=== PATIENT | female | born 1960 | race Caucasian/White ===

== ENCOUNTER 2020-01-13 09:53 | Emergency (ER) | payer OTHER, SELFPAY ==
[2020-01-13 09:55] VITALS: BP 138/85; PULSE 75; RESP 18; TEMP 37; O2SAT 98; BMI 27.4
--- NOTE | 2020-01-13 10:12 | CT_ITS ---
STUDY: CT ABDOMEN AND PELVIS WITHOUT CONTRAST REASON FOR EXAM: Female, 59 years old. LEFT FLANK PAIN WITH HISTORY OF KIDNEY STONES. PRIOR TUBAL LIGATION AND LITHOTRIPSY. RADIATION DOSAGE (If Supplied By Facility): CTDIvol = ( 9.57 ) mGy, DLP = ( 452.55 ) mGycm TECHNIQUE: Transaxial images were obtained from the dome of the diaphragm to the symphysis pubis without oral contrast, and without intravenous contrast. Sagittal and coronal images were reconstructed. Individualized dose optimization techniques were used for this CT. COMPARISON: None. FINDINGS: The visualized lung bases are unremarkable. The visualized portions of the heart are within normal limits. Normal liver. Normal gallbladder and extrahepatic biliary system. Normal spleen. Normal pancreas. Enlargement of the left adrenal gland although no focal lesion is seen suggestive of hyperplasia. Nonobstructive 3 mm calculus in the upper pole calyx of the right kidney. Mild degree of left hydronephrosis and left hydroureter with left perinephric and periureteric stranding. There is a 7.8 mm nonobstructive cochlea is in the upper pole calyx of the left kidney as well as a 3 mm calculus in the midportion and lower pole calyx of the left kidney. There is a 4.4 mm calculus in the proximal portion of the left ureter. Normal visualized stomach. Normal small intestine. There are multiple colonic diverticula consistent with diverticulosis. The appendix is visualized and appears normal. There is diffuse atherosclerotic calcification of the abdominal aorta, without a demonstrated aneurysm. Normal inferior vena cava. Normal retroperitoneum. Normal urinary bladder. Normal abdominal wall. Normal osseous structures. CT/Abdomen/Pelvis without Cont IMPRESSION: Left hydronephrosis and hydroureter due to a 4.4 mm calculus in the proximal portion of the left ureter with left perinephric stranding and periureteric stranding. Bilateral nonobstructive intrarenal calculi. Scattered sigmoid diverticula. Electronically Signed: Zachery Cohen, at 11:41 EST , Service support ,
--- NOTE | 2020-01-13 10:14 | ED.DCSUM_ITS ---
History of Present Illness Chief Complaint: Flank Pain Informant: Patient Onset: Today Current Severity: Moderate Maximum Severity: Severe Narrative: Patient presents with left flank pain that started 3 hours ago suddenly, the pain is intense however it does wax and wane slightly. She has no abdominal pain she is nauseated. Pain is sharp and stabbing. She has no chest pain or shortness of breath fever or chills. She has no urinary symptoms she has no history of kidney stones. She has no midline back pain. Past Medical History - Allergies and Home Meds Allergies/Adverse Reactions: Allergies codeine Allergy (Verified 01/13/20 09:57) Itching Primary Care Physician: [facility] Doctor,Out of [NON-STAFF] - Past Medical History: - - Depression Smoking Status: Current every day smoker Review of Systems All systems negative except as indicated General: Denies: Fever Cardiovascular: Denies: Chest pain Respiratory: Denies: Dyspnea, Cough Gastrointestinal: Reports: Nausea. Denies: Abdominal pain, Diarrhea, Constipation Genitourinary: Denies: Dysuria, Hematuria Musculoskeletal: Reports: Back pain Skin: Denies: Rash Neurological: Denies: Weakness Psych: Reports: Depression Endocrine: Denies: Polyuria Hematologic: Reports: - Allergy: Reports: - Physical Exam Vital Signs/Narrative: Vital Signs Temp Pulse Resp BP Pulse Ox 01/13/20 09:55 98.6 F 75 18 138/85 H 98 General: Acute Distress, - - She does appear in some distress Head: Normocephalic Neck: Supple Cardiovascular: Regular rate, Regular rhythm Respiratory: No distress, CTA bilaterally Abdomen: Soft, - - There is no abdominal tenderness. There is left-sided flank pain which is ill reproduced. Back: CVA tenderness. Negative for: Spinal tenderness Extremities: Nontender, No edema Skin: Normal color Neurological: Alert, Normal Strength. Negative for: Weakness Psychological: - - Anxious Diagnostic/Tx/Re-eval - Medical Decision Making Patient is found to have a 4.4 mm obstructing stone. There is no evidence of infection. Her pain is controlled. She wants to be discharged. I will follow- up with urology and give her symptomatic treatment. ED Disposition - Plan for ED Patient: Disposition: Home or Assisted Living Instructions: KIDNEY STONE w/ Colic Prescriptions: Tamsulosin HCl [Flomax] 0.4 mg PO DAILY #5 cap.er.24h Prescription Printed Oxycodone HCl/Acetaminophen [Percocet 5/325] 1 tab PO Q6H PRN PRN 5 Days #20 tab PRN Reason: Pain Score 4-5/10 Prescription Printed Ondansetron [Zofran Odt] 4 mg PO Q8H PRN PRN #10 tab PRN Reason: Nausea Prescription Printed Referrals: Shant Razo MD [STAFF PHYSICIAN] -
[2020-01-13] MEDS: Ondansetron 4 MG/2 ML Vial IV (10:17)
[2020-01-13] MEDS: 0.9% Normal Saline 1,000 ML 1000 ML IV (10:17)
[2020-01-13] MEDS: Ketorolac 30 MG/ML Syringe 15 MG IV (10:18)
[2020-01-13] MEDS: Morphine 4 MG/ML Syringe IV (10:19)
[2020-01-13 10:31] LABS: Absolute Lymphocyte Count 2.85 X10^3/uL (0.83-4.51); Absolute Neutrophil Count 10.6 X10^3/uL (2.0-7.7); Basophil# 0.07 X10^3/uL; Basophil% 0.5 % (0-1); Eosinophil# 0.05 X10^3/uL; Eosinophils% 0.4 % (0-5); Hematocrit 42.4 % (37-47); Hemoglobin 13.9 g/dL (12.0-15.0); Lymphocyte # 2.85 X10^3/ul (4.0); Lymphocyte % 20.1 % (19-41); Mean Corp Hgb Conc 32.8 g/dL (32-36); Mean Corpuscular Hgb 30.9 pg (27.0-32.0); Mean Corpuscular Volume 94.2 fL (81-99); Mean Platelet Vol. 9.8 fl (6.2-12.0); Monocyte# 0.49 X10^3/uL; Monocyte% 3.5 % (0-10); NRBC Flagged by Analyzer 0 % (0-5); Neutrophil # 10.64 X10^3/uL (2.7-7.7); Neutrophil % 75.1 % (47-70); Platelet Count 335 K/mm3 (150-450); RBC Distribution Width CV 13.8 % (11.6-14.6); RBC Distribution Width SD 47.5 fl (35.1-43.9); White Blood Count 14.2 K/mm3 (4.4-11.0)
[2020-01-13 10:32] LABS: Color, Urine Yellow (Yellow); Glucose, Dipstick Normal (Normal); Ketone-Dipstick 5 mg/dl (Negative); Leukocyte Esterase-Dipstick 100 /ul (Negative); Nitrite-Dipstick Negative (Negative); Occult Blood-Urine 250 /ul (Negative); Protein-Dipstick 100 mg/dl (Negative); Urine Bilirubin Dipstick Negative (Negative); Urine Clarity Sl. Cloudy (Clear); Urine Urobilinogen Normal (Normal)
[2020-01-13 10:45] LABS: Bacteria 1+ /hpf (None Seen); Mucous, Urine 1+ /hpf (<or=2+); Red Blood Cells-Urine 10-25 SEEN /hpf (0-5); Squamous Epithelial Cells - UA 0-5 SEEN /hpf (5-10); White Blood Cells 0-5 SEEN /hpf (0-5)
[2020-01-13 10:46] LABS: AST(SGOT) 17 U/L (15-37); Alanine Aminotransfer ALT/SGPT 25 U/L (13-56); Albumin, Serum 3.9 g/dL (3.2-5.0); Alkaline Phosphatase 91 U/L (45-117); Anion Gap 5 (5-15); BUN 15 mg/dL (7-18); BUN/Creat Ratio 12.9 RATIO (10-20); Calcium,Total 9.3 mg/dL (8.5-10.1); Chloride 107 mmol/L (98-107); Creatinine, Serum 1.16 mg/dL (0.55-1.02); EST Glomerular Filtration Rate 50 mL/min (>60); Est Glom Filt Rate - Afr Amer 61 mL/min (>60); Estimated Creatinine Clearance 42.13 ml/min; Globulin 3.8 g/dL (2.2-4.2); Glucose 134 mg/dL (74-106); Protein, Total 7.7 g/dL (6.4-8.2); Sodium Level 139 mmol/L (136-145)
[2020-01-13] MEDS: oxyCODONE 5 MG Tablet 10 MG PO (12:49)
[2020-01-13 12:52] VITALS: BP 125/71; PULSE 81; RESP 17; O2SAT 95
== END 2020-01-13 12:54 | disposition home or self-care (01) ==
PROVIDERS: Emergency Provider Emergency Medicine; PCP Nurse Practitioner Family
DX: N13.2 Hydronephrosis with renal and ureteral calculous obstruction (principal); F17.200 Nicotine dependence, unspecified, uncomplicated
CPT/HCPCS: 74176; 80053; 81001; 85025; 96361; 96374; 96375; 99284; J7030; A4216; J2405

== ENCOUNTER → 2024-10-27 | Outpatient (CLI) | payer MEDICARE, SELFPAY ==
--- NOTE | 2024-10-27 09:54 | BI_ITS ---
MAMMOGRAPHY - BILATERAL SCREENING REASON FOR EXAM: Female, 64 years old. Routine annual screening examination. PERTINENT HISTORY: Non-contributory. TECHNIQUE: Digital bilateral breast ana (3D mammographic acquisition) in the CC and MLO projections. 2-D mediolateral oblique (MLO) and craniocaudad (CC) views of both breasts were obtained. CAD: Full Field Digital Mammography with Computer Added Detection was performed. COMPARISON: None. Baseline examination. FINDINGS: Breast Composition: The breasts are heterogeneously dense, which may obscure small masses. There are no dominant masses or suspicious calcifications. Asymmetry of breast tissue with more breast tissue is seen in the right breast as compared to the left side. Small bilateral axillary lymph nodes. No other significant abnormalities are identified. BI/SCRN MAMM (CAD)W/ANA BILAT IMPRESSION: Negative screening mammogram. Yearly followup mammogram recommended. (A) ASSESSMENT CATEGORY: BIRADS Category 2: Benign. A letter regarding these results will be sent to the patient by the facility within 30 days. Approximately 10% of breast cancers are not detected by mammography. A normal mammogram should not delay biopsy of a clinically suspicious abnormality. [id number] Electronically Signed: Zachery oChen MD at 11:07 EST ,
--- NOTE | 2024-10-27 09:56 | BD_ITS ---
STUDY: DUAL ENERGY X-RAY ABSORPTIOMETRY / DXA REASON FOR EXAM: Female, 64 years old. M810 TECHNIQUE: Bone Mineral Density (BMD) measurements of lumbar spine and bilateral hips were obtained. COMPARISON: None. FINDINGS: Lumbar Spine (L1-L4): g/cm2 (0.798) / T-score (-2.3) / Z-score (-0.4) Findings are suggestive of osteopenia with a high fracture risk. Left Femur Total: g/cm2 (0.734) / T-score (-1.7) / Z-score (-0.4) Left Femoral Neck: g/cm2 (0.557) / T-score (-2.6) / Z-score (-1.1) Right Femur Total: g/cm2 (0.722) / T-score (-1.8) / Z-score (-0.5) Right Femoral Neck: g/cm2 (0.561) / T-score (-2.6) / Z-score (-1.0) BD/Dexa Bone Density Study IMPRESSION: The patient is considered osteoporotic as outlined below according to World Lawrence Organization (WHO) criteria with a high fracture risk. Reference Information: The T-score is the number of standard deviations above or below the standard which is normal for young adults at their peak bone mineral density. The World Health Organization (WHO) interprets the T-scores as follows: Above -1 Normal bone density Between -1 and -2.5 Osteopenia Equal to / or below -2.5 Osteoporosis As a practical clinical guideline, osteopenia may be graded as follows: Mild -1 through -1.5 Moderate -1.6 through -2.0 Severe -2.1 through -2.4 The Z-score is the number of standard deviations above or below age-matched controls. A Z-score of less than -1.5 would be considered abnormal. References: 1. NIH Osteoporosis and Related Bone Diseases www osteo.org 2. International Society for Clinical Densitometry www iscd.org 3. National Osteoporosis Foundation www nof.org Electronically Signed: Zachery Cohen MD at 14:58 EST ,
== END | disposition home or self-care (01) ==
PROVIDERS: PCP Nurse Practitioner Family; Referring Provider Nurse Practitioner Family; Visit Provider Nurse Practitioner Family
DX: Z12.31 Encounter for screening mammogram for malignant neoplasm of breast (principal); M81.0 Age-related osteoporosis without current pathological fracture
CPT/HCPCS: 77063; 77067; 77080

== ENCOUNTER → 2025-02-14 | Outpatient (CLI) | payer MEDICARE, SELFPAY ==
--- NOTE | 2025-02-14 08:49 | CT_ITS ---
PROCEDURE: 02/14/2025 REASON FOR EXAM: SCREENING FOR LUNG CANCER TECHNIQUE: Low Dose CT Lung screening without contrast. Coronal and Sagittal reconstruction series were provided. One or more dose reduction techniques were used (e.g., Automated exposure control, adjustment of the mA and/or kV according to patient size, use of iterative reconstruction technique). REFERENCE LINK: [employer] Lung-RADS RADIATION DOSE SUMMARY: CTDlvol: 2.01 mGy DLP: 62.68 mGycm COMPARISON: None. FINDINGS: PULMONARY NODULES: (Only nodules >3mm are reported) Nodules described below are on series unless otherwise specified. Pulmonary Nodules: No suspicious pulmonary nodules. Hardware:None. Lymph Nodes:Shotty nonspecific lymph nodes seen within the mediastinum the largest measures up to 1.3 cm near the left hilum (image 80/224) Heart and Vasculature:Atheromatous calcification seen within the thoracic aorta. Coronary Artery Calcifications: None to minimal. Lungs and Airways: Subpleural bleb seen within the right upper lobe (image 56/224). Streaky changes/scarring seen within the right middle lobe (image 159/224). There are dependent changes at the lung bases. There are patchy subpleural infiltrates within the left upper lobe (image 82/224). Pleura:No pleural effusion. Upper Abdomen:Left hydronephrosis partially visualized. There several left- sided renal stones. Contrast is seen within the visualized colonic loops. Please see CT abdomen. Bones:Degenerative changes within the spine. CT/Low Dose CT Lung Screening IMPRESSION: Subpleural ground-glass changes are nonspecific. Lung-RADS Category: 2 Other Significant Findings: Left hydronephrosis, renal stones. Please see CT a bdomen/pelvis, which is separately dictated. Reading Location: [id number]
--- NOTE | 2025-02-14 09:12 | CT_ITS ---
PROCEDURE: ABDOMEN/PELVIS WITH CONTRAST 02/14/2025 REASON FOR EXAM: HIGH SERUM VITAMIN, RENAL CARCINOMA SUSPECTED TECHNIQUE: Contiguous axial scans of 3.75 mm slice thicknesses. Sagittal and coronal reconstruction images were obtained. One or more dose reduction techniques were used (e.g., automated exposure control, adjustment of mA and/or kv according to patient size, use of iterative reconstruction technique). PATIENT PREPARATION: Per protocol ORAL CONTRAST TYPE: Given CONTRAST: 300 Isovue-300 VOLUME: 93 mL RADIATION DOSE SUMMARY: CTDlvol: 25.89 mGy DLP: 626.29 mGycm COMPARISON: No relevant prior. FINDINGS: Lung bases: Unremarkable. Liver: Normal in size and attenuation. No masses are demonstrated. Gallbladder: Unremarkable. Spleen: Unremarkable. Pancreas: No masses. Normal parenchymal attenuation. No ductal dilatation. Adrenals: Left adrenal gland thickening. Small left adrenal gland nodule measuring 10 mm, axial image 31. Kidneys: Bilateral nonobstructing nephrolithiasis. Multiple calcifications in the upper pole of the left kidney, largest measuring a approximately 6 mm. Multiple calcifications scattered throughout the left kidney, too numerous to count. Multiple calcifications are noted in the left upper pole calyx, largest measuring approximately 6 mm. Marked left hydroureteronephrosis down to the ureterovesical junction. Several calcifications are noted obstructing the distal left ureter on axial image number 92, coronal image 68 measuring approximately 5 mm. Multiple cysts in both kidneys, largest on the right measuring 9 mm, largest on the left measuring 1.8 x 1.4 cm. Bladder: No masses or calcifications. Reproductive Organs: Unremarkable. Bowel: Unremarkable. Appendix: Unremarkable. Lymph nodes: No suspicious adenopathy. Vasculature: Scattered atherosclerotic calcified plaques in the aorta and iliac arteries. Mild eccentric thrombus in the aorta and iliac arteries. Peritoneum / Retroperitoneum: Unremarkable. Abdominal wall: Unremarkable. Bones: Mild multilevel spondylosis. Mild degenerative disc disease at T10 through T12. CT/Abdomen/Pelvis WITH Contrast IMPRESSION: 1. Findings of an obstructive uropathy on the left with obstructing calculi at the left ureterovesical junction and marked proximal hydroureteronephrosis. 2. Bilateral nonobstructing nephrolithiasis. 3. Bilateral renal cysts. 4. No definite signs of renal cell carcinoma. 5. Left adrenal gland thickening in a small nodule most likely adrenal adenoma . 6. Other nonacute findings detailed above. Reading Location: [place] [id number]
== END | disposition home or self-care (01) ==
PROVIDERS: PCP Nurse Practitioner Family; Referring Provider Nurse Practitioner Family; Visit Provider Nurse Practitioner Family
DX: Z12.2 Encounter for screening for malignant neoplasm of respiratory organs (principal); N18.32 Chronic kidney disease, stage 3b; F17.210 Nicotine dependence, cigarettes, uncomplicated; R79.89 Other specified abnormal findings of blood chemistry
CPT/HCPCS: 71271; 74177; Q9967; A4216

== ENCOUNTER 2025-03-02 07:59 | Day surgery (SDC) | payer MEDICARE, SELFPAY ==
[2025-03-02] VITALS (9 sets, daily range): BP systolic 112–137; BP diastolic 57–103; PULSE 72–78; RESP 16–20; TEMP 36.1–36.8; O2SAT 94–98; BMI 23.0
[2025-03-02] MEDS: Lactated Ringers 1,000 ML 15 ML IV (08:58)
--- NOTE | 2025-03-02 09:07 | PRE.ANES_ITS ---
ASA Classification* ASA Classification ASA Classification: 3 Assessment & Plan Anesthesia* Anesthesia Assessment Anesthesia Assessment: Discussed sedation and/or anesthesia options, risks, benefits, and alternatives with patient/parents/legal guardian/POA. Questions invited. The patient/parents/legal guardian/POA seems to understand and agrees to proceed with anesthesia plan. Reviewed the physical assessment, medical history, allergy history and patient home medications list prior to surgery/procedure/anesthetic and documented any changes. Performed airway and anesthesia risk assessments. Anesthesia Type Anesthesia Type: General History Source History Obtained from:: Patient and Chart Anesthesia Focused Assessment* Temperature: 97.8 F Pulse Rate: 76 Blood Pressure: 135/72 Respiratory Rate: 18 Pulse Ox: 97 Oxygen Delivery Method: Room Air Airway Assessment Mouth opens: >3 cm Mallampati Score: II Teeth Condition: Dentures (Patient has full upper dentures. They are out.) and Missing (Patient is missing her molars on the bottom. Rest are tight.) Neck Range of motion (ROM): Full ROM Focused Labs Anesthesia Preop lab: CBC WBC 14.2 K/mm3 (4.4-11.0) H 01/13/20 10:10 0 RBC 4.50 M/mm3 (4.2-5.4) 01/13/20 10:10 01/13/20 Hgb 13.9 g/dL (12.0-15.0) 01/13/20 10:10 01/13/20 Hct 42.4 % (37-47) 01/13/20 10:10 01/13/20 Plt Count 335 K/mm3 (150-450) 01/13/20 10:10 01/13/20 CHEMISTRY Potassium 4.0 mmol/L (3.5-5.1) 01/13/20 10:10 01/13/20 Sodium 139 mmol/L (136-145) 01/13/20 10:10 01/13/20 BUN 15 mg/dL (7-18) 01/13/20 10:10 01/13/20 Creatinine 1.16 mg/dL (0.55-1.02) H 01/13/20 10:10 Glucose 134 mg/dL (74-106) H 01/13/20 10:10 01/13/20 COAG Pre-Assessment Diagnosis/Proposed Procedure Planned Operative Procedure(s): CYSTO URETEROSCOPY LEFT WITH LASER LITHOTRIPSY STONE BASKET EXTRACTION STENT INSERTION Anesthesia History 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 When Was Last Pacemaker Check QUESTION #4 FULL TEXT: You/Your Family Experience fever (hyperthermia) with Anesthesia Last Oral Intake Last Oral intake: Last Oral Intake NPO since 06:30 03/02/25 08:52 Meds taken in AM with sips of Yes 03/02/25 08:52 water? Meds patient instructed to omeprazole 03/02/25 08:52 take am of surgery Any additional information?: Yes Meds taken in AM with sips of water?: Yes PONV PONV - air table operator: PONV - air table operator Female Yes 02/27/25 13:16 HX of Motion Sickness No 02/27/25 13:16 HX of N/V After Surgery No 02/27/25 13:16 Non-Smoker No 02/27/25 13:16 Duration of Surgery greater Yes 02/27/25 13:16 than 60 minutes Number of Risk Factors 2 02/27/25 13:16 PONV Score Moderate Risk 02/27/25 13:16 Height & Weight Height & Weight: Anesthesia: Height & Weight Height 5 ft 3 in 03/02/25 08:52 Weight: 59 kg 03/02/25 08:52 Body Mass Index (BMI) 23.0 03/02/25 08:52 Respiratory Assessment Respiratory Assessment - air table operator: Respiratory Tract Infection Hx - air table operator Hx Respiratory Tract Infection No 02/27/25 13:16 STOP Sleep Apnea STOP Sleep Apnea - air table operator: STOP Sleep Apnea - air table operator Hx Hypertension No 02/27/25 13:16 Hx Sleep Apnea No 02/27/25 13:16 CPAP BIPAP Do you snore loudly (louder No 02/27/25 13:16 than talking or can be heard Do you often feel tired/ No 02/27/25 13:16 fatigued/ sleepy during daytime? Has anyone observed you stop No 02/27/25 13:16 breathing during sleep? STOP Results Negative 02/27/25 13:16 QUESTION #5 FULL TEXT : Do you snore loudly (louder than talking or can be heard through closed doors)? 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 Specify any problems Hx of Preganancy in last 3 No 02/27/25 13:16 Months Nurse Filling Out Transfusion DSCHRIBER 02/27/25 13:16 & Questions: Date: 02/27/25 02/27/25 13:16 Time: 13:17 02/27/25 13:16 Patient unable to answer at this time (ie. confused, unrespo /Reproduction History /Reproductive History - air table operator: /Reproductive Hx- air table operator Hx Now No 02/27/25 13:16 Gestational Age (in weeks): EDC: Hx Hx Para Hx Section SAB No 02/27/25 13:16 Active Medications Active Medications: Current Medications Generic Name Dose Route Start Last Admin Trade Name Freq PRN Reason Stop Dose Admin Cefazolin Sodium 2 gm/ N/A 20 mls @ 400 mls/hr 03/02/25 10:55 IV 03/02/25 10:57 INTRAOP ONE Lactated Ringer's 1,000 mls @ 15 mls/hr 03/02/25 08:15 03/02/25 08:58 IV 15 mls/hr .Q48H CARINA Administration PFSH Medical History Loss of hearing Wears contact lenses Wears dentures Post-menopausal Depression Anxiety History of steroid therapy Rheumatoid arthritis Bladder disease Easy bruising High cholesterol Migraine headache Degenerative disc disease at L5-S1 level DDD (degenerative disc disease), thoracic DDD (degenerative disc disease), cervical Injury of head and neck TIA (transient ischemic attack) Syncope History of diverticulitis History of IBS Gastric reflux Asthma Leg cramps Smoker Home Medications ?Medication ?Instructions ?Recorded ?Last Taken ?Type buspirone 5 mg tablet 5 mg PO BID 01/13/20 Unknown History ondansetron 4 mg disintegrating 4 mg PO Q8H PRN PRN Na usea #10 tabs 01/13/20 Unknown Rx tablet alendronate 70 mg tablet 70 mg PO QWEEK 02/27/25 Unkn own History aspirin 81 mg tablet,delayed 81 mg PO QHS 02/27/25 History release (Adult Low Dose Aspirin) atorvastatin 10 mg tablet 10 mg PO QHS 02/27/25 Unknow n History bupropion HCl 150 mg tablet,12 hr 150 mg PO BID Unknown History sustained-release fluticasone 100 mcg-salmeterol 50 1 inh inhalation BID PRN PRN ASTHMA 02/27/25 Unknown History mcg/dose blistr powdr for inhalation meloxicam 7.5 mg tablet 7.5 mg PO DAILY PRN ARTHRITI S 02/27/25 Unknown History omeprazole 20 mg capsule,delayed 20 mg PO DAILY PRN HI N GERD 02/27/25 03/02/25 06:30 History release tamsulosin 0.4 mg capsule 0.4 mg PO QHS 02/27/25 Unkno wn History Allergy/AdvReac Type Severity Reaction Status Date / Time codeine Allergy Itching Verified 03/02/25 08:51 Surgical History History of esophagogastroduodenoscopy (EGD) Hx of colonoscopy History of cystoscopy Hx of tubal ligation Social History Smoking Status: Current every day smoker (Patient smoked today.) tobacco type: cigarettes Review of Systems (Anesthesia) ROS Narrative System reviewed and no additional complaints, except as documented.
--- NOTE | 2025-03-02 09:32 | PCM.OPRPT ---
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: No Type of Anesthesia: General RN Documented Start/Stop Times: Operation Date: 03/02/25 09:35 Case Time Into Pre-Op 03/02/25 08:11 Anesthesia Start 03/02/25 09:36 Into Room 03/02/25 09:36 Out of Pre-Op 03/02/25 09:36 Procedure Start 03/02/25 09:49 Procedure End 03/02/25 10:04 Anesthesia End 03/02/25 10:11 Out of Room 03/02/25 10:11 Into Recovery 03/02/25 10:13 Procedure Start Time: 09:49 Procedure Stop Time: 10:04 Select all DRAINS/GRAFTS/IMPLANTS that apply: Drains Drain details: 4.5Fr x 24cm JJ stent Estimated Blood Loss: <5cc Specimen collected: Yes Description of specimen(s) removed: Ureteral stone fragments Description of surgery: Patient is a 64-year-old female with an obstructing left distal ureteral calculus who presents for surgical intervention. Informed consent was obtained. She was taken to the operating room and placed on the operating room table. Anesthesia monitored the head, neck, airway, IV access and vital signs throughout the case. Once anesthesia was appropriate ministered, she was placed into dorsolithotomy position was prepped and draped in usual sterile fashion. The cystoscope was inserted through the urethra under direct visualization into the urinary bladder. The bladder was visualized in its entirety revealing no evidence of mass, erythema, ulceration or foreign body. The left ureteral orifice was identified and intubated with a 0.035 Glidewire seen within the renal pelvis on fluoroscopy. The semirigid ureteroscope was then utilized to gain access to the distal ureter and the stone was almost immediately identified. Using the 200 ?m laser fiber, the stone was broken into multiple small pieces which were basket retrieved using an N-fernie basket. Once all of the fragments were retrieved from the ureter, the safety wire was utilized for placement of a 4.5 Sami by 24 cm JJ stent with good positioning in the renal pelvis as well as the urinary bladder. The bladder was then emptied and the cystoscope was removed. She was awakened and taken to the recovery room in good condition. There were no complications during this procedure. Surgical Findings: left distal stone, larger than measured on CT imaging Complications Complications: No Admit VTE Documentation VTE Present on Admission: Yes VTE Mechan Device Prophylaxis: SCD's Reason prophylaxis not ordered: Treatment Not Indicated
--- NOTE | 2025-03-02 09:33 | EX.PCM.DISCH ---
Discharge Instructions Diet Discharge Diet: No restrictions Activity Discharge Activity: Return to Normal Activity Dressing / Incision Call your doctor if you observe: Fever of 101 or Higher, Inability to urinate and Inability to have a bowel movement Follow Up Care Please Follow Up With: Paige Johansen MD When: The office will call the patient to make follow-up arrangements Test Results: Test results from this visit will be discussed in further detail at your follow-up appointment, if applicable. Discharge Plan Admission Attending Provider: Paige Johansen Primary Care Provider: Nancy Joyce NP Instructions Print Language: Austrian Discharge Orders/Prescriptions Prescriptions: New ondansetron 8 mg tablet,disintegrating 8 mg PO Q8H PRN (Reason: nausea and vomiting) Qty: 10 0RF oxycodone-acetaminophen 5-325 mg tablet 1 tab PO Q8H PRN (Reason: pain) 3 Days Qty: 10 0RF cephalexin 500 mg capsule 500 mg PO Q12 3 Days Qty: 6 0RF phenazopyridine 200 mg tablet 200 mg PO TID PRN (Reason: pain) Qty: 30 3RF Continued buspirone 5 MG tablet 5 mg PO BID ondansetron 4 MG tablet 4 mg PO Q8H PRN PRN (Reason: Nausea) Qty: 10 0RF aspirin [Adult Low Dose Aspirin] 81 mg tablet,delayed release (DR/EC) 81 mg PO QHS tamsulosin 0.4 MG capsule 0.4 mg PO QHS omeprazole 20 mg capsule,delayed release(DR/EC) 20 mg PO DAILY PRN PRN (Reason: GERD) fluticasone propion-salmeterol 100-50 mcg/dose blister with device 1 inh inhalation BID PRN PRN (Reason: ASTHMA) bupropion HCl 150 mg tablet sustained-release 12 hr 150 mg PO BID atorvastatin 10 mg tablet 10 mg PO QHS alendronate 70 mg tablet 70 mg PO QWEEK meloxicam 7.5 mg tablet 7.5 mg PO DAILY PRN (Reason: ARTHRITIS) Referrals / Follow Up: Nancy Joyce NP, EVENT MANAGEMENT CONSULTANT-C [Primary Care Provider] - Disposition Disposition (needs filled in before D/C Order can be placed): Home, Self Care
--- NOTE | 2025-03-02 09:35 | CALC_PTH ---
PATIENT: BRAXTON MARTINEZ LOC: [facility] [place][id number] AGE/SX: 64/F ROOM: RE03/02/[address]: Dr. Paige Johansen MD : 1960 BED: DIS: 03/02/2025 SPEC #: [id number] RECD: 03/02/25 11:09 STATUS: ANA ROSA PURDY #: [id number] MORIAH: 03/02/25 09:[address]: Paige Johansen DEPT: SURGICAL PATHOLOGY RECD BY: Dixon Leija ENTERED: 03/02/25 11:09 SP TYPE: Calculi OTHR DR: Nancy Joyec, GEOVANNA Tissues: A - CALCULI Procedures: Surgery Specimen Level I HEADER OPERATION: Left ureteroscopy, laser litho, stone basket extraction PRE-OP DIAGNOSIS: Renal and ureteric calculus, abdominal pain, stress incontinence TISSUE SUBMITTED: A- Left ureteral calculus GROSS DIAGNOSIS A. Left ureter, calculus, extraction: * Urolithiasis (gross examination only). * Chemical analysis pending (to be reported separately). GROSS DESCRIPTION A. Received fresh in a container labeled with the patient's name, date of , and left ureteral calculus is a 0.6 x 0.5 x 0.4 cm irregular and firm stone. No soft tissue is received; no sections are submitted for microscopic analysis. The specimen is entirely submitted to a urolithiasis lab. [facility] 03/02/2025 CPT:73018
[2025-03-02] MEDS: Cefazolin 2 GM in Syringe IV (09:36)
--- NOTE | 2025-03-02 10:15 | PCM.POST.ANE ---
Anesthesia: Postop Eval I Current Vital Signs Temperature: 97.9 F Pulse Rate: 77 Blood Pressure: 137/103 Respiratory Rate: 20 Pulse Ox: 97 Oxygen Delivery Method: Room Air Assessment Airway patent: Yes Spontaneous unlabored respirations: Yes Mental status: Awake and Calm nausea: Yes Vomiting: No Anesthesia Complication: No Fluid Hydration Crystalloid volume administer (ml): 600 Total IV fluid infused: 600 Progress Note Anesthesia document: Postop Eval 1 completed: Yes
--- NOTE | 2025-03-02 14:24 | POSTOPAN2_ITS ---
Anesthesia Postop Eval I Sum Postop Eval Completion status Anesthesia document: Postop Eval 1 completed: Yes Anesthesia Postop Eval I Summary Anesthesia Postop Eval I Summary: Anesthesia Postop Eval I: Assessment Summary Airway patent Yes 03/02/25 10:16 PERENNIAL HOUSE MANAGER.TNES Spontaneous unlabored Yes 03/02/25 10:16 PERENNIAL HOUSE MANAGER.TNES respirations Mental status Awake,Calm 03/02/25 10:16 PERENNIAL HOUSE MANAGER.TNES nausea Yes 03/02/25 10:16 PERENNIAL HOUSE MANAGER.TNES Vomiting No 03/02/25 10:16 PERENNIAL HOUSE MANAGER.TNES Anesthesia Postop Eval I: Fluid Summary Crystalloid volume administer 600 03/02/25 10:16 PERENNIAL HOUSE MANAGER.TNES (ml) Colloids volume administered ( ml) Blood Product volume administered (ml) Total IV fluid infused 600 03/02/25 10:16 PERENNIAL HOUSE MANAGER.TNES Anesthesia Postop Eval I: Summary Notes Anesthesia Complication No 03/02/25 10:16 PERENNIAL HOUSE MANAGER.TNES Anesthesia Complication Comment: Post-operative progress note Anesthesia: Postop Eval II Evaluation Mental status: Awake and Calm Pain Level: 0 nausea: No Vomiting: No Complications Anesthesia Complication: No
--- NOTE | 2025-03-02 14:24 | PCM.POSTANE2 ---
Anesthesia Postop Eval I Sum Postop Eval Completion status Anesthesia document: Postop Eval 1 completed: Yes Anesthesia Postop Eval I Summary Anesthesia Postop Eval I Summary: Anesthesia Postop Eval I: Assessment Summary Airway patent Yes 03/02/25 10:16 JOINT MACHINE OPERATOR.TNES Spontaneous unlabored Yes 03/02/25 10:16 JOINT MACHINE OPERATOR.TNES respirations Mental status Awake,Calm 03/02/25 10:16 JOINT MACHINE OPERATOR.TNES nausea Yes 03/02/25 10:16 JOINT MACHINE OPERATOR.TNES Vomiting No 03/02/25 10:16 JOINT MACHINE OPERATOR.TNES Anesthesia Postop Eval I: Fluid Summary Crystalloid volume administer 600 03/02/25 10:16 JOINT MACHINE OPERATOR.TNES (ml) Colloids volume administered ( ml) Blood Product volume administered (ml) Total IV fluid infused 600 03/02/25 10:16 JOINT MACHINE OPERATOR.TNES Anesthesia Postop Eval I: Summary Notes Anesthesia Complication No 03/02/25 10:16 JOINT MACHINE OPERATOR.TNES Anesthesia Complication Comment: Post-operative progress note Anesthesia: Postop Eval II Evaluation Mental status: Awake and Calm Pain Level: 0 nausea: No Vomiting: No Complications Anesthesia Complication: No
== END 2025-03-02 11:15 | disposition home or self-care (01) ==
LOC: SDC 08:01 → AC 08:02
PROVIDERS: PCP Nurse Practitioner Family; Referring Provider Urology; Visit Provider Urology
PROC: (CPT 52356; principal; 2025-03-02 09:25)
DX: N20.1 Calculus of ureter (principal); J44.9 Chronic obstructive pulmonary disease, unspecified; N18.32 Chronic kidney disease, stage 3b; F41.9 Anxiety disorder, unspecified; F32.A Depression, unspecified; K21.9 Gastro-esophageal reflux disease without esophagitis; F17.200 Nicotine dependence, unspecified, uncomplicated; N39.3 Stress incontinence (female) (male); Z86.73 Personal history of transient ischemic attack (TIA), and cerebral infarction without residual deficits; Z79.899 Other long term (current) drug therapy; Z79.82 Long term (current) use of aspirin
CPT/HCPCS: 52356; 00873; 76000; 82360; 88300; C1769; J2405

== ENCOUNTER → 2025-03-28 | Outpatient (CLI) | payer MEDICARE, SELFPAY ==
--- NOTE | 2025-03-28 11:35 | RAD_ITS ---
PROCEDURE: ABDOMEN SINGLE VIEW 03/28/2025 REASON FOR EXAM: KUB- KIDNEY STONE TECHNIQUE: Single view abdomen. 2 total images to include the abdomen and pelvis COMPARISON: CT abdomen and pelvis 02/14/2025 FINDINGS: Multiple calcifications are seen over the left renal shadow calcification of the upper pole of the right kidney consistent with nephrolithiasis. Bowel gas overlies portions of the mid and lower right renal shadow. No pelvic calcification concerning for stone disease. A mild S shaped thoracolumbar curvature. Visualized lung bases appear clear. No gaseous distention of bowel. RAD/Abdomen Single View IMPRESSION: Findings are suggestive of bilateral nephrolithiasis as above. No pelvic calcification concerning for stone disease. Reading Location: [id number]
[2025-03-28 16:04] LABS: Calcium 10.4 mg/dL (7.6-11.0)
== END | disposition home or self-care (01) ==
LOC: MTLAB 11:33
PROVIDERS: PCP Nurse Practitioner Family; Referring Provider Urology; Visit Provider Urology
DX: N20.0 Calculus of kidney (principal)
CPT/HCPCS: 36415; 74018; 82310

== ENCOUNTER 2025-06-15 07:36 | Day surgery (SDC) | payer MEDICARE, SELFPAY ==
[2025-06-09 10:03] LABS: Hematocrit 40.0 % (37-47); Hemoglobin 13.4 g/dL (12.0-15.0); Mean Corp Hgb Conc 33.5 g/dL (32-36); Mean Corpuscular Volume 93.7 fL (81-99); Mean Platelet Vol. 9.6 fl (6.2-12.0); Platelet Count 358 K/mm3 (150-450); RBC Distribution Width CV 13.8 % (11.6-14.6); RBC Distribution Width SD 47.0 fl (35.1-43.9); Red Blood Count 4.27 M/mm3 (4.2-5.4); White Blood Count 11.5 K/mm3 (4.4-11.0)
[2025-06-09 11:28] LABS: Anion Gap 11 (5-15); BUN 22 mg/dL (4-19); BUN/Creat Ratio 17.4 RATIO (10-20); Calcium,Total 10.5 mg/dL (7.6-11.0); Carbon Dioxide 22.0 mmol/L (21.0-32.0); Chloride 105 mmol/L (98-108); Glucose 97 mg/dL (70-99); Potassium 4.6 mmol/L (3.3-5.1)
[2025-06-15] VITALS (8 sets, daily range): BP systolic 119–133; BP diastolic 61–95; PULSE 70–84; RESP 16–18; TEMP 36.1–36.2; O2SAT 94–100; BMI 22.6
[2025-06-15] MEDS: Lactated Ringers 1,000 ML 15 ML IV (08:07)
[2025-06-15] MEDS: fentaNYL 100 MCG/2 ML Ampul IV (10:01)
[2025-06-15] MEDS: Cefazolin 1 GM/5 ML Vial 2 GM IV (10:05)
== END 2025-06-15 12:57 | disposition home or self-care (01) ==
LOC: SDC 07:36 → AC 07:37
PROVIDERS: PCP Nurse Practitioner Family; Referring Provider Urology; Visit Provider Urology
PROC: (CPT 50590; principal; 2025-06-15 09:05)
DX: N20.0 Calculus of kidney (principal); J44.9 Chronic obstructive pulmonary disease, unspecified; N18.32 Chronic kidney disease, stage 3b; N39.3 Stress incontinence (female) (male); E78.00 Pure hypercholesterolemia, unspecified; E83.52 Hypercalcemia; K21.9 Gastro-esophageal reflux disease without esophagitis; F17.290 Nicotine dependence, other tobacco product, uncomplicated; Z79.82 Long term (current) use of aspirin; Z79.899 Other long term (current) drug therapy; Z86.73 Personal history of transient ischemic attack (TIA), and cerebral infarction without residual deficits
CPT/HCPCS: 52332; 00873; 36415; 80048; 85027; 93005; C1769; C2617; J2405

== ENCOUNTER 2025-07-13 06:41 | Day surgery (SDC) | payer MEDICARE, SELFPAY ==
[2025-07-13] VITALS (9 sets, daily range): BP systolic 107–127; BP diastolic 53–88; PULSE 71–96; RESP 16; TEMP 36.1–36.6; O2SAT 95–100; BMI 22.8
[2025-07-13] MEDS: Lactated Ringers 1,000 ML 15 ML IV (07:17)
--- NOTE | 2025-07-13 07:24 | PCM.PRE.AN2 ---
ASA Classification* ASA Classification ASA Classification: 2 Assessment & Plan Anesthesia* Anesthesia Assessment Anesthesia Assessment: Discussed sedation and/or anesthesia options, risks, benefits, and alternatives with patient/parents/legal guardian/POA. Questions invited. The patient/parents/legal guardian/POA seems to understand and agrees to proceed with anesthesia plan. Reviewed the physical assessment, medical history, allergy history and patient home medications list prior to surgery/procedure/anesthetic and documented any changes. Performed airway and anesthesia risk assessments. Anesthesia Type Anesthesia Type: General History Source History Obtained from:: Patient and Chart Anesthesia Focused Assessment* Temperature: 97.8 F Pulse Rate: 72 Blood Pressure: 127/78 Respiratory Rate: 16 Pulse Ox: 98 Airway Assessment Mouth opens: >3 cm Mallampati Score: II Teeth Condition: Dentures and Upper Neck Range of motion (ROM): Full ROM Labs Anesthesia Preop lab: CBC WBC 11.5 K/mm3 (4.4-11.0) H 06/09/25 09:39 06/09/25 RBC 4.27 M/mm3 (4.2-5.4) 06/09/25 09:39 06/09/25 Hgb 13.4 g/dL (12.0-15.0) 06/09/25 09:39 06/09/25 Hct 40.0 % (37-47) 06/09/25 09:39 06/09/25 Plt Count 358 K/mm3 (150-450) 06/09/25 09:39 06/09/25 CHEMISTRY Potassium 4.6 mmol/L (3.3-5.1) 06/09/25 09:39 06/09/25 Sodium 139 mmol/L (133-145) 06/09/25 09:39 06/09/25 BUN 22 mg/dL (4-19) H 06/09/25 09:39 06/09/25 Creatinine 1.25 mg/dL (0.70-1.20) H 06/09/25 09:39 06/09/25 Glucose 97 mg/dL (70-99) 06/09/25 09:39 06/09/25 COAG Pre-Assessment Diagnosis/Proposed Procedure Planned Operative Procedure(s): LEFT ESWL POSS CYSTO WITH LEFT STENT Anesthesia History Anesthesia History - firestop/containment worker: Anesthesia History - firestop/containment worker Hx Hospitalization No 06/29/25 09:04 Any Problems With Anesthesia No 06/29/25 09:04 Cholinesterase deficiency No 06/29/25 09:04 You/Your Family Experience No 06/29/25 09:04 fever (hyperthermia) with Relationship Recent Exposure to Contagious No 07/13/25 07:06 Disease Does patient have nerve No 06/29/25 09:04 stimulator Patient instructed to have device shut off --Does patient have Pacemaker No 07/13/25 07:06 or ICD? When Was Last Pacemaker Check QUESTION #4 FULL TEXT: You/Your Family Experience fever (hyperthermia) with Anesthesia Last Oral Intake Last Oral intake: Last Oral Intake NPO since 21:00 07/13/25 07:06 Meds taken in AM with sips of water? Meds patient instructed to take am of surgery PONV PONV - firestop/containment worker: PONV - firestop/containment worker Female Yes 06/29/25 09:04 HX of Motion Sickness Yes 06/29/25 09:04 HX of N/V After Surgery No 06/29/25 09:04 Non-Smoker No 06/29/25 09:04 Duration of Surgery greater Yes 06/29/25 09:04 than 60 minutes Number of Risk Factors 3 06/29/25 09:04 PONV Score Moderate Risk 06/29/25 09:04 Height & Weight Height & Weight: Anesthesia: Height & Weight Height 5 ft 3 in 07/13/25 07:06 Weight: 58.513 kg 07/13/25 07:06 Body Mass Index (BMI) 22.8 07/13/25 07:06 Respiratory Assessment Respiratory Assessment - firestop/containment worker: Respiratory Tract Infection Hx - firestop/containment worker Hx Respiratory Tract Infection No 06/29/25 09:04 STOP Sleep Apnea STOP Sleep Apnea - firestop/containment worker: STOP Sleep Apnea - firestop/containment worker Hx Hypertension No 06/29/25 09:04 Hx Sleep Apnea No 06/29/25 09:04 CPAP BIPAP Do you snore loudly (louder No 06/29/25 09:04 than talking or can be heard Do you often feel tired/ Yes 06/29/25 09:04 fatigued/ sleepy during daytime? Has anyone observed you stop No 06/29/25 09:04 breathing during sleep? STOP Results Negative 06/29/25 09:04 QUESTION #5 FULL TEXT : Do you snore loudly (louder than talking or can be heard through closed doors)? Tobacco Use History Tobacco Use History - firestop/containment worker: Tobacco Use History - firestop/containment worker Tobacco Use Cigarettes 01/13/20 10:05 Smoking Status Current every day smoker 06/29/25 09:04 Hx Tobacco Use Yes 06/29/25 09:04 Years Smoking Packs Smoked per Day Smoking Cessation Date was within the last 15 years Hx Smoking Cessation Date Hx Smoking Cessation Counseling Hematologic Medial History Hematologic Hx - firestop/containment worker: Hematologic Medical Hx - business analyst Hx of Blood Transfusion No 06/29/25 09:04 Hx of Transfusion in last 3 No 06/29/25 09:04 Months Date of Last Transfusion (if within last 3 months) Ever experience any problems No 06/29/25 09:04 with transfusion(s)? Specify any problems Hx of Preganancy in last 3 No 06/29/25 09:04 Months Nurse Filling Out Transfusion DSCHRIBER 06/29/25 09:04 & Questions: Date: 06/29/25 06/29/25 09:04 Time: 09:05 06/29/25 09:04 Patient unable to answer at this time (ie. confused, unrespo /Reproduction History /Reproductive History - firestop/containment worker: /Reproductive Hx- firestop/containment worker Hx Now No 06/29/25 09:04 Gestational Age (in weeks): EDC: Hx Hx Para Hx Section SAB No 06/29/25 09:04 Active Medications Active Medications: Current Medications Generic Name Dose Route Start Last Admin Trade Name Freq PRN Reason Stop Dose Admin Cefazolin Sodium 2 gm/ Sodium 110 mls @ 200 mls/hr 07/13/25 08:15 Chloride IV 07/13/25 08:47 INTRAOP ONE Lactated Ringer's 1,000 mls @ 15 mls/hr 07/13/25 07:00 07/13/25 07:17 IV 15 mls/hr .Q48H CARINA Administration PFSH Medical History H/O nephrolithotomy with removal of calculi H/O bone density study H/O mammogram Diverticular disease UTI (urinary tract infection) GERD (gastroesophageal reflux disease) Hyperlipidemia COPD (chronic obstructive pulmonary disease) IBS (irritable bowel syndrome) Arthritis Myalgia Osteoporosis Hydronephrosis Obstructed, uropathy Chronic kidney disease, stage 3b Bilateral renal cysts Intermittent palpitations Dysphagia Stroke Ureteral calculus Loss of hearing Wears contact lenses Wears dentures Post-menopausal Depression Anxiety History of steroid therapy Rheumatoid arthritis Bladder disease Easy bruising High cholesterol Migraine headache Degenerative disc disease at L5-S1 level DDD (degenerative disc disease), thoracic DDD (degenerative disc disease), cervical Injury of head and neck TIA (transient ischemic attack) Syncope History of diverticulitis History of IBS Gastric reflux Asthma Leg cramps Smoker Home Medications ?Medication ?Instructions ?Recorded ?Last Taken ?Type alendronate 70 mg tablet 70 mg PO QWEEK 02/27/25 Unknown History aspirin 81 mg tablet,delayed 81 mg PO QHS 02/27/25 07/06/25 History release (Adult Low Dose Aspirin) atorvastatin 10 mg tablet 10 mg PO QHS 02/27/25 07/12/25 History fluticasone 100 mcg-salmeterol 50 1 inh inhalation BID PRN PRN ASTHMA 02/27/25 Unknown History mcg/dose blistr powdr for inhalation meloxicam 7.5 mg tablet 7.5 mg PO DAILY PRN ARTHRITIS 02/27/25 Unknown History omeprazole 20 mg capsule,delayed 20 mg PO DAILY PRN PRN GERD 02/27/25 03/02/25 06:30 History release ascorbic acid (vitamin C) 1,000 mg 1,000 mg PO DAILY 06/05/25 07/12/25 History tablet,extended release (C Complex) biotin 10,000 mcg chewable tablet 10,000 mcg PO .qd 06/05/25 07/12/25 History (Hair, Skin and Nails (biotin)) bupropion HCl 150 mg 24 hr tablet, 150 mg PO .qd 06/05/25 07/12/25 History extended release xbeteyd-umpevctak-rzjq tablet 1 tab PO .qd 06/05/25 07/12/25 History cholecalciferol (vitamin D3) 100 5,000 unit PO DAILY 06/05/25 07/12/25 History mcg (4,000 unit) capsule cranberry 500 mg capsule 1,000 mg PO DAILY 06/05/25 07/12/25 History dicyclomine 10 mg capsule 10 mg PO Q8 PRN cramps 06/05/25 07/12/25 History multivitamin (Daily Value tablet) 1 tab PO DAILY 06/05/25 07/12/25 History omega-3 fatty acids 1,000 mg PO DAILY 06/05/25 07/06/25 History psyllium husk 0.4 gram capsule 0.4 g PO DAILY 06/05/25 Unknown History (Metamucil) tramadol 50 mg tablet 50 mg PO Q8 PRN arthritis 06/05/25 07/10/25 History potassium citrate-citric acid 10 ml PO BIDWMEAL #473 mL 06/09/25 07/11/25 Rx 1,100 mg-334 mg/5 mL oral solution ondansetron 4 mg disintegrating 4 mg PO Q8H PRN nausea and 06/15/25 Unknown Rx tablet vomiting #10 tabs phenazopyridine 200 mg tablet 200 mg PO TID PRN pain #30 tabs 06/15/25 Unknown Rx Allergy/AdvReac Type Severity Reaction Status Date / Time codeine Allergy Itching Verified 07/13/25 07:03 Family History Sister Hypertension Cancer Grandfather Heart disease Grandmother Diabetes Cancer Unknown Cancer Father FH: kidney cancer Surgical History History of extracorporeal shockwave lithotripsy (ESWL) History of esophagogastroduodenoscopy (EGD) Hx of colonoscopy History of cystoscopy Hx of tubal ligation Social History Smoking Status: Current every day smoker tobacco type: cigarettes Smokeless tobacco user: other Electronic Cigarette Use: with nicotine quit status: considering quitting alcohol intake: never substance use type: other details: CBD GUMMIES what type of physical activity do you participate in: other frequency: 1-2 times per week duration: other do you feel safe at home: Yes Review of Systems (Anesthesia) ROS Narrative System reviewed and no additional complaints, except as documented.
--- NOTE | 2025-07-13 07:50 | PCM.HP.STD ---
HPI - General General Date of Admission: 07/13/25 Date of Service: 07/13/25 Chief Complaint: Renal stones HPI Narrative History & Physical Exam 06/22/25 0905 MR#: [id number] Acct: [id number] Name: BRAXTON MARTINEZ Rep #: [id number] : 1960 64 From: Paige Johansen MD PCP: GEOVANNA Kolb Status: [facility] Location: [facility] [place] History and Physical Date of Admission: 06/15/25 Intake Vital Signs 03/02/2508:52 06/09/2511:27 Height 5 ft 3 in 5 ft 3 in Weight: 130 lb BMI 23.0 BP 123/90 H Pulse 77 Intake Visit Reasons: PRE OP URINE C&S SIGN CONSENT Chief Complaint: preoperative with urine and consent 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 Hand Required: No Accompanied by: Self Is patient in pain?: No Allergies codeine Allergy (Verified 06/09/25 11:25)Itching Medications ?Medication ?Instructions ?Recorded ?Confirmed ?Type alendronate 70 mg tablet 70 mg PO QWEEK 02/27/25 06/09/25 History aspirin 81 mg tablet,delayed 81 mg PO QHS 02/27/25 06/09/25 History release (Adult Low Dose Aspirin) atorvastatin 10 mg tablet 10 mg PO QHS 02/27/25 06/09/25 History fluticasone 100 mcg-salmeterol 50 1 inh inhalation BID PRN PRN ASTHMA 02/27/25 06/09/25 History mcg/dose blistr powdr for inhalation meloxicam 7.5 mg tablet 7.5 mg PO DAILY PRN ARTHRITIS 02/27/25 06/09/25 History omeprazole 20 mg capsule,delayed 20 mg PO DAILY PRN PRN GERD 02/27/25 06/09/25 History release ascorbic acid (vitamin C) 1,000 mg 1,000 mg PO DAILY 06/05/25 06/09/25 History tablet,extended release (C Complex) atorvastatin 10 mg tablet (Lipitor) 10 mg PO DAILY 06/05/25 06/09/25 History biotin 10,000 mcg chewable tablet 10,000 mcg PO .qd 06/05/25 06/09/25 History (Hair, Skin and Nails (biotin)) bupropion HCl 150 mg 24 hr tablet, 150 mg PO .qd 06/05/25 06/09/25 History extended release hqxpfay-wyrdilvql-gfqk tablet 1 tab PO .qd 06/05/25 06/09/25 History cholecalciferol (vitamin D3) 100 5,000 unit PO DAILY 06/05/25 06/09/25 History mcg (4,000 unit) capsule cranberry 500 mg capsule 1,000 mg PO DAILY 06/05/25 06/09/25 History dicyclomine 10 mg capsule 10 mg PO Q8 PRN cramps 06/05/25 06/09/25 History multivitamin (Daily Value tablet) 1 tab PO DAILY 06/05/25 06/09/25 History omega-3 fatty acids 1,000 mg PO DAILY 06/05/25 06/09/25 History psyllium husk 0.4 gram capsule 0.4 g PO DAILY 06/05/25 06/09/25 History (Metamucil) tramadol 50 mg tablet 50 mg PO Q8 PRN arthritis 06/05/25 06/09/25 History potassium citrate-citric acid 10 ml PO BIDWMEAL #473 mL 06/09/25 06/09/25 Rx 1,100 mg-334 mg/5 mL oral solution Post menopausal: Yes Patient : No Have you fallen in the past year?: No PFSH Medical History H/O nephrolithotomy with removal of calculi H/O bone density study H/O mammogram Diverticular disease UTI (urinary tract infection) GERD (gastroesophageal reflux disease) Hyperlipidemia COPD (chronic obstructive pulmonary disease) IBS (irritable bowel syndrome) Arthritis Myalgia Osteoporosis Hydronephrosis Obstructed, uropathy Chronic kidney disease, stage 3b Bilateral renal cysts Intermittent palpitations Dysphagia Stroke Ureteral calculus Loss of hearing Wears contact lenses Wears dentures Post-menopausal Depression Anxiety History of steroid therapy Rheumatoid arthritis Bladder disease Easy bruising High cholesterol Migraine headache Degenerative disc disease at L5-S1 level DDD (degenerative disc disease), thoracic DDD (degenerative disc disease), cervical Injury of head and neck TIA (transient ischemic attack) Syncope History of diverticulitis History of IBS Gastric reflux Asthma Leg cramps Smoker Surgical History (Updated 06/05/25 @ 14:34 by Dyana Campbell) History of esophagogastroduodenoscopy (EGD) Hx of colonoscopy History of cystoscopy Hx of tubal ligation Family History (Updated 06/05/25 @ 14:36 by Dyana Campbell) Sister Hypertension CancerGrandfather Heart diseaseGrandmother Diabetes CancerUnknown CancerFather FH: kidney cancer Social History (Updated 06/05/25 @ 14:37 by Dyana Campbell) Smoking Status: Current every day smoker tobacco type: cigarettes Smokeless tobacco user: other Electronic Cigarette Use: with nicotine quit status: considering quitting alcohol intake: never substance use type: other details: CBD GUMMIES what type of physical activity do you participate in: other frequency: 1-2 times per week duration: other do you feel safe at home: Yes HPI HPI Chief Complaint: preoperative with urine and consent Details: BRAXTON MARTINEZ, is a 64 F. The patient is here for preoperative history and physical prior to right extracorporal shockwave lithotripsy. She will be having this procedure performed on the left side before the end of the month as well. There are no new symptoms since the last visit. She has been having intermittent flank discomfort. No signs of infection in urine. She is having trouble with the potassium citrate tabs and would like to try the liquid. She even tried cutting it in half, this did not work well for her secondary to inflammation from her allergies. The procedure, recovery and expectations were explained. The risks, benefits and alternatives were discussed, including but not limited to, the risks of anesthesia, bleeding, infection, injury, pain and the need for further intervention. We have discussed the risk of exposure to and/or potential harm posed by the COVID-19 virus with having a surgery/procedure at this time. A joint decision was made at this time to proceed with the scheduled surgery/procedure as indicated on the consent form. ROS Const Constitutional: No chills, fatigue, fever(s), headache(s), night sweats, weakness, weight change, abnormal sleep pattern or change in appetite Eyes Eyes: No change in vision ENT ENT: No headache(s) or dry mouth Resp Respiratory: No cough, chest congestion, shortness of breath or wheezing Cardio Cardiology: Positive for other (No chest pain.); No shortness of breath, irregular heart rhythm or lightheadedness Gastro GI: Positive for other (No nausea.); No abdominal pain, change in bowel habits, constipation, diarrhea or vomiting Musc Musculoskeletal: Positive for other (Intermittent bilateral mild flank discomfort not requiring intervention); No abnormal gait Skin Skin: No yellowing of the eye, lesions, itchy eyes, rash or skin ulcer Neuro Neurology: No abnormal gait, confusion, dizziness, weakness, headache(s) or memory loss Psych Psychiatric: No abnormal sleep pattern, No change in appetite, No confusion and No memory loss Endo Endocrine: No fatigue, increased thirst/drinking or weight change Aller/Imm Allergy/Immunologic: No itchy eyes or wheezing Jorge/Lymp Hematologic/Lymphatic: No easy bleeding, easy bruising or enlarged lymph nodes Exam Const General: cooperative, healthy appearing, comfortable and no acute distress [facility] Head: normocephalic and atraumatic Ears: hearing grossly normal bilaterally and external ears normal Nose: external nose normal Eyes General: appearance normal, both eyes and all related structures Neck Neck: normal visual inspection and trachea midline Chest Chest palpation & inspection: normal inspection of the chest Resp Effort & Inspection: normal respiratory effort, able to speak in complete sentences and symmetric chest movement Cardio Rate: regular rate GI Inspection: normal to inspection Palpation: soft and nontender General: No CVA tenderness Skin General: no rashes or lesions noted Neuro General: patient alert, patient awake, patient oriented x3 and CN's II-XI intact bilaterally Extrem General: normal to inspection Psych Appearance: grossly normal and well kempt Mental Status: mental status grossly normal Results POC UA Auto w/o Microscopy Office Urine Color ? Last Edit by Dyana Campbell on 06/09/25 11:31 Office Urine Clarity ? Last Edit by Dyana Campbell on 06/09/25 11:31 Office Urine Glucose Negative Last Edit by Dyana Campbell on 06/09/25 11:31 Office Urine Ketones Negative Last Edit by Dyana Campbell on 06/09/25 11:31 Office Urine Bilirubin Negative Last Edit by Dyana Campbell on 06/09/25 11:31 Office Urine Urobilinogen Negative Last Edit by Dyana Campbell on 06/09/25 11:31 Off Ur Spec [place] 1.015 Last Edit by Dyana Campbell on 06/09/25 11:31 Office Urine pH 5 Last Edit by Dyana Campbell on 06/09/25 11:31 Office Urine Protein Negative Last Edit by Dyana Campbell on 06/09/25 11:31 Office Urine Blood Negative Last Edit by Dyana Campbell on 06/09/25 11:31 Office Urine Blood Hemolyzed ? Last Edit by Dyana Campbell on 06/09/25 11:31 Office Urine Nitrate Negative Last Edit by Dyana Campbell on 06/09/25 11:31 Off Ur Leukocytes Positive Last Edit by Dyana Campbell on 06/09/25 11:31 Off Ur WBC Microscopic ? Last Edit by Dyana Campbell on 06/09/25 11:31 Off Ur RBC Microscopic ? Last Edit by Dyana Campbell on 06/09/25 11:31 Off Ur Bacteria Microscopic ? Last Edit by Dyana Campbell on 06/09/25 11:31 Coding Level of Care Code Off vis,est,level 4 Diagnoses Kidney stones N20.0 Hypercalcemia E83.52 Stress incontinence N39.3 Assessment and Plan Assessment and Plan (1) Kidney stones: Status: Acute Plan: Urine culture today in preparation for surgery Her creatinine was slightly elevated today, and we discussed increasing her fluid intake. I plan to repeat this in approximately 4 to 6 weeks. Proceed with surgical intervention as scheduled. Change potassium citrate to liquid formulation. (2) Hypercalcemia: Status: Acute Plan: See plan for kidney stones (3) Stress incontinence: Status: Acute Plan: Continue conservative management at this time Orders: Orders POC UA Auto w/o Microscopy Today N20.0 - Calculus of kidney Medications: New potassium citrate-citric acid 1,100-334 mg/5 mL 10 mL PO BIDWMEAL 473 mL 6RF Discontinued potassium citrate ER Discontinued Reason: Order Changed 15 mEq PO BID Clinical Quality Measures Falls Risk Screening/Assistive Devices Have you fallen in the past year?: No 06/09/25 1322 <Electronically signed by Paige Johansen MD> Date Paige Johansen MD [facility] Medical History H/O nephrolithotomy with removal of calculi H/O bone density study H/O mammogram Diverticular disease UTI (urinary tract infection) GERD (gastroesophageal reflux disease) Hyperlipidemia COPD (chronic obstructive pulmonary disease) IBS (irritable bowel syndrome) Arthritis Myalgia Osteoporosis Hydronephrosis Obstructed, uropathy Chronic kidney disease, stage 3b Bilateral renal cysts Intermittent palpitations Dysphagia Stroke Ureteral calculus Loss of hearing Wears contact lenses Wears dentures Post-menopausal Depression Anxiety History of steroid therapy Rheumatoid arthritis Bladder disease Easy bruising High cholesterol Migraine headache Degenerative disc disease at L5-S1 level DDD (degenerative disc disease), thoracic DDD (degenerative disc disease), cervical Injury of head and neck TIA (transient ischemic attack) Syncope History of diverticulitis History of IBS Gastric reflux Asthma Leg cramps Smoker Home Medications ?Medication ?Instructions ?Recorded ?Last Taken ?Type alendronate 70 mg tablet 70 mg PO QWEEK 02/27/25 Unknown History aspirin 81 mg tablet,delayed 81 mg PO QHS 02/27/25 07/06/25 History release (Adult Low Dose Aspirin) atorvastatin 10 mg tablet 10 mg PO QHS 02/27/25 07/12/25 History fluticasone 100 mcg-salmeterol 50 1 inh inhalation BID PRN PRN ASTHMA 02/27/25 Unknown History mcg/dose blistr powdr for inhalation meloxicam 7.5 mg tablet 7.5 mg PO DAILY PRN ARTHRITIS 02/27/25 Unknown History omeprazole 20 mg capsule,delayed 20 mg PO DAILY PRN PRN GERD 02/27/25 03/02/25 06:30 History release ascorbic acid (vitamin C) 1,000 mg 1,000 mg PO DAILY 06/05/25 07/12/25 History tablet,extended release (C Complex) biotin 10,000 mcg chewable tablet 10,000 mcg PO .qd 06/05/25 07/12/25 History (Hair, Skin and Nails (biotin)) bupropion HCl 150 mg 24 hr tablet, 150 mg PO .qd 06/05/25 07/12/25 History extended release xqqkdic-lpanwltga-layx tablet 1 tab PO .qd 06/05/25 07/12/25 History cholecalciferol (vitamin D3) 100 5,000 unit PO DAILY 06/05/25 07/12/25 History mcg (4,000 unit) capsule cranberry 500 mg capsule 1,000 mg PO DAILY 06/05/25 07/12/25 History dicyclomine 10 mg capsule 10 mg PO Q8 PRN cramps 06/05/25 07/12/25 History multivitamin (Daily Value tablet) 1 tab PO DAILY 06/05/25 07/12/25 History omega-3 fatty acids 1,000 mg PO DAILY 06/05/25 07/06/25 History psyllium husk 0.4 gram capsule 0.4 g PO DAILY 06/05/25 Unknown History (Metamucil) tramadol 50 mg tablet 50 mg PO Q8 PRN arthritis 06/05/25 07/10/25 History potassium citrate-citric acid 10 ml PO BIDWMEAL #473 mL 06/09/25 07/11/25 Rx 1,100 mg-334 mg/5 mL oral solution ondansetron 4 mg disintegrating 4 mg PO Q8H PRN nausea and 06/15/25 Unknown Rx tablet vomiting #10 tabs phenazopyridine 200 mg tablet 200 mg PO TID PRN pain #30 tabs 06/15/25 Unknown Rx Allergy/AdvReac Type Severity Reaction Status Date / Time codeine Allergy Itching Verified 07/13/25 07:03 Family History Sister Hypertension Cancer Grandfather Heart disease Grandmother Diabetes Cancer Unknown Cancer Father FH: kidney cancer Surgical History History of extracorporeal shockwave lithotripsy (ESWL) History of esophagogastroduodenoscopy (EGD) Hx of colonoscopy History of cystoscopy Hx of tubal ligation Social History Smoking Status: Current every day smoker tobacco type: cigarettes Smokeless tobacco user: other Electronic Cigarette Use: with nicotine quit status: considering quitting alcohol intake: never substance use type: other details: CBD GUMMIES what type of physical activity do you participate in: other frequency: 1-2 times per week duration: other do you feel safe at home: Yes Vital Signs Vital Signs Vital Signs: 07/13/25 07:06 07/13/25 07:06 07/13/25 07:31 Temperature 97.8 F 97.8 F Temperature Source Temporal Pulse Rate 72 72 Respiratory Rate 16 16 Respiratory Pattern Normal Blood Pressure 127/78 H 127/78 H Blood Pressure Mean 94 Blood Pressure Source Monitor Blood Pressure Position Semi-Fowlers Blood Pressure Location Left Arm Pulse Ox 98 98 Weight Weight: 129 lb Body Mass Index (BMI) 22.8
[2025-07-13] MEDS: Cefazolin 1 GM/5 ML Vial 2 GM IV (08:30)
[2025-07-13] MEDS: Lidocaine 1% (5 ml sdv) 5 ML Vial IV (08:34)
[2025-07-13] MEDS: fentaNYL 100 MCG/2 ML Ampul 50 MCG IV (08:34)
--- NOTE | 2025-07-13 08:34 | DCINST_ITS ---
Discharge Instructions Diet Discharge Diet: No restrictions Activity Discharge Activity: Return to Normal Activity Dressing / Incision Call your doctor if you observe: Fever of 101 or Higher, Inability to urinate and Inability to have a bowel movement Follow Up Care Please Follow Up With: Paige Johansen MD When: 2-3 weeks with KUB Test Results: Test results from this visit will be discussed in further detail at your follow- up appointment, if applicable. Discharge Plan Admission Attending Provider: Paige Johansen Primary Care Provider: Nancy Joyce NP Instructions Print Language: [place] Discharge Orders/Prescriptions Prescriptions: New oxycodone-acetaminophen 5-325 mg tablet 1 tab PO Q8H PRN (Reason: pain) 3 Days Qty: 10 0RF cephalexin 500 mg capsule 500 mg PO Q12 3 Days Qty: 6 0RF ondansetron 4 mg tablet,disintegrating 4 mg PO Q8H PRN (Reason: nausea and vomiting) Qty: 10 0RF Continued potassium citrate-citric acid 1,100-334 mg/5 mL solution 10 ml PO BIDWMEAL Qty: 473 6RF aspirin [Adult Low Dose Aspirin] 81 mg tablet,delayed release (DR/EC) 81 mg PO QHS omeprazole 20 mg capsule,delayed release(DR/EC) 20 mg PO DAILY PRN PRN (Reason: GERD) fluticasone propion-salmeterol 100-50 mcg/dose blister with device 1 inh inhalation BID PRN PRN (Reason: ASTHMA) atorvastatin 10 mg tablet 10 mg PO QHS alendronate 70 mg tablet 70 mg PO QWEEK meloxicam 7.5 mg tablet 7.5 mg PO DAILY PRN (Reason: ARTHRITIS) bupropion HCl 150 mg tablet extended release 24 hr 150 mg PO .qd dicyclomine 10 mg capsule 10 mg PO Q8 PRN (Reason: cramps) tramadol 50 mg tablet 50 mg PO Q8 PRN (Reason: arthritis) C Complex 1,000 mg tablet extended release 1,000 mg PO DAILY cholecalciferol (vitamin D3) 100 mcg (4,000 unit) capsule 5,000 unit PO DAILY evhmjlh-vaqxwwjfd-spbb Tablet 1 tab PO .qd omega-3 fatty acids Capsule 1,000 mg PO DAILY Hair, Skin and Nails (biotin) 10,000 mcg tablet,chewable 10,000 mcg PO .qd cranberry 500 mg capsule 1,000 mg PO DAILY Rx Instructions: administer with a meal psyllium husk [Metamucil] 0.4 gram capsule 0.4 g PO DAILY multivitamin [Daily Value] Tablet 1 tab PO DAILY ondansetron 4 mg tablet,disintegrating 4 mg PO Q8H PRN (Reason: nausea and vomiting) Qty: 10 0RF phenazopyridine 200 mg tablet 200 mg PO TID PRN (Reason: pain) Qty: 30 3RF Referrals / Follow Up: Nancy Joyce NP, [employer] [Primary Care Provider] - Disposition Disposition (needs filled in before D/C Order can be placed): Home, Self Care
--- NOTE | 2025-07-13 08:37 | OP.PCM_ITS ---
Operative Report (Standard) Operative Information Date of Procedure: 07/13/25 Pre-Operative Diagnosis: bilateral renal stones Post-Operative Diagnosis: same Surgery/Procedure Performed: cystoscopy, right ureteral stent removal, left ureteral stent insertion, left renal extracorporeal shockwave lithotripsy patient carrier: No Type of Anesthesia: General RN Documented Start/Stop Times: Operation Date: 07/13/25 08:15 Case Time Into Pre-Op 07/13/25 06:52 Out of Pre-Op 07/13/25 07:25 Anesthesia Start 07/13/25 08:28 Into Room 07/13/25 08:28 Procedure Start 07/13/25 08:47 Procedure End 07/13/25 09:37 Anesthesia End 07/13/25 09:42 Out of Room 07/13/25 09:42 Into Recovery 07/13/25 09:45 Into Phase II Recovery 07/13/25 10:07 Out of Recovery 07/13/25 10:07 Out of Phase II 07/13/25 11:12 Procedure Start Time: 08:47 Procedure Stop Time: 09:37 Select all DRAINS/GRAFTS/IMPLANTS that apply: Drains Drain details: stent Estimated Blood Loss: minimal Specimen collected: No Description of surgery: The patient is a 64-year-old female who previously underwent right extracorporal shockwave lithotripsy who now presents for left-sided treatment. Informed consent was obtained. The patient was taken to the operating room and placed on the operating table. Anesthesia monitored the head, neck, airway, IV access and throughout the case. Once anesthesia was appropriately administered, fluoroscopy was utilized to evaluate the right kidney. No stone was identified. The 4.5 Citizen [place] ureteral stent had migrated distally. The left kidney was then evaluated revealing that a portion of her left renal stone had fallen into the UPJ and there were further fragments in the upper pole. She was placed into dorsolithotomy position was prepped and draped in usual sterile fashion. The cystoscope was inserted through the urethra under direct visualization into the urinary bladder. The right ureteral stent was grasped and removed without difficulty. A 0.035 Glidewire was then used to gently cannulate the left ureteral orifice and the wire was advanced into the renal pelvis is seen on fluoroscopy. A 6 Citizen [place] 24 cm JJ stent was placed over the wire with good positioning in the renal pelvis and the urinary bladder. The urinary bladder was then emptied and the cystoscope was removed. She was repositioned on the table into a supine position with knees elevated. A total of 3000 shocks were applied to the multitude of stones which appeared to be well fragmented at the conclusion of the case. She was then awakened and taken to the recovery room in good condition. There were no complications during this procedure. Surgical Findings: Right stone fragments resolved, stent removed. Left stent and shockwave lithotripsy. Complications Complications: No Admit VTE Documentation VTE Present on Admission: Yes VTE Mechan Device Prophylaxis: SCD's Reason prophylaxis not ordered: Treatment Not Indicated
--- NOTE | 2025-07-13 09:50 | PCM.POST.ANE ---
Anesthesia: Postop Eval I Current Vital Signs Temperature: 97 F Pulse Rate: 71 Blood Pressure: 112/53 Respiratory Rate: 16 Pulse Ox: 98 Oxygen Delivery Method: Room Air Assessment Airway patent: Yes Spontaneous unlabored respirations: Yes Mental status: Awake and Calm nausea: No Vomiting: No Anesthesia Complication: No Fluid Hydration Crystalloid volume administer (ml): 600 Total IV fluid infused: 600 Progress Note Anesthesia document: Postop Eval 1 completed: Yes
--- NOTE | 2025-07-13 15:23 | POSTOPAN2_ITS ---
Anesthesia Postop Eval I Sum Postop Eval Completion status Anesthesia document: Postop Eval 1 completed: Yes Anesthesia Postop Eval I Summary Anesthesia Postop Eval I Summary: Anesthesia Postop Eval I: Assessment Summary Airway patent Yes 07/13/25 09:51 CASING RUNNING MACHINE TENDER.GDOTT Spontaneous unlabored Yes 07/13/25 09:51 CASING RUNNING MACHINE TENDER.GDOTT respirations Mental status Awake,Calm 07/13/25 09:51 CASING RUNNING MACHINE TENDER.GDOTT nausea No 07/13/25 09:51 CASING RUNNING MACHINE TENDER.GDOTT Vomiting No 07/13/25 09:51 CASING RUNNING MACHINE TENDER.GDOTT Anesthesia Postop Eval I: Fluid Summary Crystalloid volume administer 600 07/13/25 09:51 CASING RUNNING MACHINE TENDER.GDOTT (ml) Colloids volume administered ( ml) Blood Product volume administered (ml) Total IV fluid infused 600 07/13/25 09:51 CASING RUNNING MACHINE TENDER.GDOTT Anesthesia Postop Eval I: Summary Notes Anesthesia Complication No 07/13/25 09:51 CASING RUNNING MACHINE TENDER.GDOTT Anesthesia Complication Comment: Post-operative progress note Anesthesia: Postop Eval II Evaluation Mental status: Awake and Calm Pain Level: 0 nausea: No Vomiting: No Complications Anesthesia Complication: No
--- NOTE | 2025-07-13 15:23 | PCM.POSTANE2 ---
Anesthesia Postop Eval I Sum Postop Eval Completion status Anesthesia document: Postop Eval 1 completed: Yes Anesthesia Postop Eval I Summary Anesthesia Postop Eval I Summary: Anesthesia Postop Eval I: Assessment Summary Airway patent Yes 07/13/25 09:51 COIL INSPECTOR.GDOTT Spontaneous unlabored Yes 07/13/25 09:51 COIL INSPECTOR.GDOTT respirations Mental status Awake,Calm 07/13/25 09:51 COIL INSPECTOR.GDOTT nausea No 07/13/25 09:51 COIL INSPECTOR.GDOTT Vomiting No 07/13/25 09:51 COIL INSPECTOR.GDOTT Anesthesia Postop Eval I: Fluid Summary Crystalloid volume administer 600 07/13/25 09:51 COIL INSPECTOR.GDOTT (ml) Colloids volume administered ( ml) Blood Product volume administered (ml) Total IV fluid infused 600 07/13/25 09:51 COIL INSPECTOR.GDOTT Anesthesia Postop Eval I: Summary Notes Anesthesia Complication No 07/13/25 09:51 COIL INSPECTOR.GDOTT Anesthesia Complication Comment: Post-operative progress note Anesthesia: Postop Eval II Evaluation Mental status: Awake and Calm Pain Level: 0 nausea: No Vomiting: No Complications Anesthesia Complication: No
== END 2025-07-13 11:13 | disposition home or self-care (01) ==
LOC: SDC 06:46 → AC 06:55
PROVIDERS: PCP Nurse Practitioner Family; Referring Provider Urology; Visit Provider Urology
PROC: (CPT 50590; principal; 2025-07-13 08:05)
DX: N20.0 Calculus of kidney (principal); J44.9 Chronic obstructive pulmonary disease, unspecified; N18.32 Chronic kidney disease, stage 3b; K21.9 Gastro-esophageal reflux disease without esophagitis; E78.00 Pure hypercholesterolemia, unspecified; Z79.82 Long term (current) use of aspirin; F17.210 Nicotine dependence, cigarettes, uncomplicated; F17.290 Nicotine dependence, other tobacco product, uncomplicated; E83.52 Hypercalcemia; N39.3 Stress incontinence (female) (male); Z79.899 Other long term (current) drug therapy
CPT/HCPCS: 50590; 52332; 00873; C1769; C2617; J2405

== ENCOUNTER → 2025-08-02 | Outpatient (CLI) | payer MEDICARE, SELFPAY ==
--- NOTE | 2025-08-02 10:03 | RAD_ITS ---
PROCEDURE: ABDOMEN SINGLE VIEW 08/02/2025 REASON FOR EXAM: KUB- KIDNEY STONE TECHNIQUE: Procedure Code: RADABD Modality: DX Procedure: ABDOMEN SINGLE VIEW COMPARISON: KUB, 03/28/2025. FINDINGS: There is a nonobstructive bowel gas pattern. There is a left double-J ureteral stent. There are no abnormal soft tissue calcifications. There is mild levoscoliosis of the lumbar spine. RAD/Abdomen Single View IMPRESSION: Left-sided double-J ureteral stent. No evidence of nephrolithiasis or ureterol ithiasis. Reading Location: [id number]
--- NOTE | 2025-08-02 10:03 | RAD_ITS ---
PROCEDURE: ABDOMEN SINGLE VIEW 08/02/2025 REASON FOR EXAM: KUB- KIDNEY STONE TECHNIQUE: Procedure Code: RADABD Modality: DX Procedure: ABDOMEN SINGLE VIEW COMPARISON: KUB, 03/28/2025. FINDINGS: There is a nonobstructive bowel gas pattern. There is a left double-J ureteral stent. There are no abnormal soft tissue calcifications. There is mild levoscoliosis of the lumbar spine. RAD/Abdomen Single View IMPRESSION: Left-sided double-J ureteral stent. No evidence of nephrolithiasis or ureterol ithiasis. Reading Location: [id number]
== END | disposition home or self-care (01) ==
LOC: MTRAD 10:02
PROVIDERS: PCP Nurse Practitioner Family; Referring Provider Urology; Visit Provider Urology
DX: N20.0 Calculus of kidney (principal)
CPT/HCPCS: 74018

== ENCOUNTER → 2025-09-06 | Outpatient (CLI) | payer MEDICARE, SELFPAY ==
--- OUTSIDE RECORDS SUMMARY | 2025-09-06 12:40 | XMS RPT_ITS | CCD ---
Author Organization [facility] Care Team Providers Care Grass Cutter Name Role Phone No, Physician Primary Care Provider Unavailabl e Julee Joyce Primary Care Provider JEANETTE YUEN Attending Unavailable AYANNA RIVERA Consulting Unavailable MAX, PHYSICIAN Primary Care Unavailable JEANETTE YUEN Admitting Unavailable JEANETTE YUEN Referring Unavailable MAX, PHYSICIAN Primary Care Unavailable STACI QUICK Attending Unav ailable AMBROSSTACI GONZALEZ Referring Unav ailable JULEE JOYCE Primary Care Unavailable AMBROSSTACI GONZALEZ Attending Unav ailable JULEE JOYCE Primary Care Unavailable Julee Joyce Primary Care Provider Isiah BRANCH DIRECTOR-C, Julee Primary Care Provider [phone] Isiah BRANCH DIRECTOR-C, Julee Attending Provider Isiah BRANCH DIRECTOR-C, Julee Referring Provider Isiah BRANCH DIRECTOR-C, Julee Primary Care Provider [phone] Isiah BRANCH DIRECTOR-C, Julee Attending Provider Isiah BRANCH DIRECTOR-C, Julee Referring Provider Dr. Paige Johansen MD Attending Provider Dr. Paige Johansen MD Referring Provider [phone] JULEE JOYCE Attending Unavailable ISIAH, JUELE Primary Care Unavailable ISIAH, JULEE Admitting Unavailable ISIAH, JULEE Attending Unavailable ISIAH, JULEE Primary Care Unavailable ISIAH, JULEE Admitting Unavailable Dr. Paige Johansen MD Attending Provider Dr. Paige Johansen MD Referring Provider Isiah BRANCH DIRECTOR-C, Julee Primary Care Provider Eleno JUNG, Dr. Gibson Attending Provider Eleno JUNG, Dr. Gibson Referring Provider Rebecca JUNG, Dr. Hassan Attending Provider Isiah BRANCH DIRECTOR-C, Julee Referring Provider Eleno JUNG, Dr. Gibson Other Provider Isiah BRANCH DIRECTOR-C, Julee Primary Care Provider Eleno JUNG, Dr. Gibson Attending Provider Eleno JUNG, Dr. Gibson Referring Provider Isiah BRANCH DIRECTOR-C, Julee Primary Care Physician Eleno JUNG, Dr. Gibson Attending Physician Rebecca JUNG, Dr. Hassan Attending Physician Eleno JUNG, Dr. Gibson Referring Provider Eleno JUNG, Dr. Gibson Nurse Practitioner Isiah BRANCH DIRECTOR, Julee Primary Care Unavailable Wyneski, Paige Attending Unavailable Wyneski, Paige Consulting Unavailable Wyneski, Paige Referring Unavailable Wyneski, Paige Referring Unavailable Isiah BRANCH DIRECTOR, Julee Primary Care Unavailable WyneskiLailay Attending Unavailable Wyneski, Paige Consulting Unavailable Wyneski, Paige Referring Unavailable Isiah BRANCH DIRECTOR, Julee Primary Care Unavailable WyneskiLailay Attending Unavailable Wyneski, Paige Consulting Unavailable Isiah BRANCH DIRECTOR, Julee Primary Care Unavailable Wyneski, Paige Attending Unavailable Wyneski, Paige Referring Unavailable Isiah BRANCH DIRECTOR, Julee Primary Care Unavailable Mo Fernandez Attending Unavailable Isiah BRANCH DIRECTOR, Julee Primary Care Unavailable WyneskiLailay Attending Unavailable Wyneski, Paige Referring Unavailable Wyneski, Paige Referring Unavailable Isiah BRANCH DIRECTOR, Julee Primary Care Unavailable Wyneski, Paige Attending Unavailable Isiah BRANCH DIRECTOR, Julee Primary Care Unavailable Wyneski, Paige Attending Unavailable Wyneski, Paige Referring Unavailable Isiah BRANCH DIRECTOR, Julee Primary Care Unavailable Isiah BRANCH DIRECTOR, Julee Referring Unavailable Isiah BRANCH DIRECTOR, Julee Attending Unavailable Isiah BRANCH DIRECTOR, Julee Primary Care Unavailable Isiah BRANCH DIRECTOR, Julee Referring Unavailable Isiah BRANCH DIRECTOR, Julee Attending Unavailable Isaih BRANCH DIRECTOR, Julee Primary Care Unavailable Paige Johansen Attending Unavailable Paige Johansen Referring Unavailable Isiah BRANCH DIRECTOR, Julee Primary Care Unavailable Paige Johansen Attending Unavailable Paige Johansen Referring Unavailable Isiah BRANCH DIRECTOR, Julee Primary Care Unavailable Isiah BRANCH DIRECTOR, Julee Referring Unavailable Paige Johansen Attending Unavailable Isiah BRANCH DIRECTOR, Julee Primary Care Unavailable Isiah BRANCH DIRECTOR, Julee Referring Unavailable Paige Johansen Attending Unavailable Isiah BRANCH DIRECTOR, Julee Primary Care Unavailable Isiah BRANCH DIRECTOR, Julee Referring Unavailable Paige Johansen Attending Unavailable Allergies Allergy Classification Reported Allergen(s) Allergy Type Date of Onset Reaction(s) Facility (13 sources) Codeine; Translations: [CODEINE] Drug Allergy 9 GI Intolerance [facility] (1 source) Codeine Drug Allergy 5 [facility] Repository Medications Current Medications Medication Drug Class(es) Dates Sig (Normalized) Sig (Original) alendronic acid 70 mg oral tablet (6 sources) Bisphosphonate Start: 02-27-2025 take 1 tablet by mouth every week Alendronate 70 mg tablet Active 70 mg PO EVERY WEEK February 27, 2025 12:00am Complies with drug therapy ascorbic acid 1000 mg extended release oral tablet (7 sources) Vitamin C Start: 06-05-2025 take 1 tablet by mouth once daily Ascorbic Acid (Vitamin C) (C Complex) 1,000 mg tablet extended release Active 1000 mg PO DAILY June 05, 2025 12:00am Complies with drug therapy ascorbic acid (V YANG-C ORAL) Take by mouth daily . 0 Active aspirin 81 mg delayed release oral tablet (10 sources) Platelet Aggregation Inhibitor, Nonsteroidal Anti-inflammatory Drug Start: 02-27-2025 Aspirin (Adult Lo w Dose Aspirin) 81 mg tablet,delayed release (DR/EC) Active 81 mg PO AT BEDTIME February 27, 2025 12:00am Complies with drug therapy take 1 tablet by mouth once na y aspirin 81 MG EC tablet Take 81 mg by mouth daily . 0 Active bifidobacterium infantis 4 mg oral capsule (4 sources) take 1 capsule by mouth once daily Bifidobacterium infantis (ALIGN) 4 mg cap Take 4 mg by mouth daily . 0 Active Biotin (4 sources) Start: 06-05-2025 Biotin (Hair, Skin And Nails (Biotin)) 10,000 mcg tablet,chewable Active 86730 ug PO .qd June 05, 2025 12:00am Complies with drug therapy Start: 06-05-2025 Biotin (Hair, Skin And Nails (Biotin)) 10,000 mcg tablet,chewable Active 92217 ug PO .qd June 05, 2025 12:00am 24 hr buPROPion hydrochloride 150 mg extended release oral tablet (10 sources) Aminoketone Start: 06-05-2025 take 1 tablet by mouth once daily Bupropion Hcl 150 mg tablet extended release 24 hr Active 150 mg PO .qd June 05, 2025 12:00am Complies with drug therapy Start: 02-27-2025 End: 06-09-2025 take 1 tablet by mouth twice daily Bupropion Hcl 150 mg tablet sustained-release 12 hr Discontinued 150 mg PO TWICE A DAY February 27, 2025 12:00am June 09, 2025 11:24am Zhbfsbf-Ukewrpeil-Cggc table t (4 sources) Start: 06-05-2025 Calcium-Magnes ium-Zinc tablet Active 1 {tbl} PO .qd June 05, 2025 12:00am Complies with drug therapy Start: 06-05-2025 Calcium-Magnes ium-Zinc tablet Active 1 {tbl} PO .qd June 05, 2025 12:00am Cholecalciferol (4 sources) Vitamin D Start: 06-05-2025 take 1 capsule by mouth once daily Cholecalciferol (Vitamin D3) 100 mcg (4,000 unit) capsule Active 5000 U PO DAILY June 05, 2025 12:00am Complies with drug therapy Start: 06-05-2025 take 1 capsule by mo [facility] once daily Cholecalciferol (Vitamin D3) 100 mcg (4,000 unit) capsule Active 5000 U PO DAILY June 05, 2025 12:00am cholecalciferol, vitamin D3, (VITAMIN D3 ORAL) (3 sources) cholecalciferol, vitamin D3, (VITAMIN D3 ORAL) Take by mouth daily . 0 Active citric acid 66.8 mg/ml / potassium citrate 220 mg/ml oral solution (1 source) Calculi Dissolution Agent, Anti-coagulant Start: 025 Potassium Citrate-Citric Acid 1,100-334 mg/5 mL solution Active 10 mL PO 2 times per day with meals 473 6 June 09, 2025 12:00am Complies with drug therapy Cranberry (4 sources) Non-Standardized Food Allergenic Extract, Non-Standardized Plant Allergenic Extract Start: take 1 capsule by mouth once daily Cranberry 500 mg capsule Active 1000 mg PO DAILY June 05, 2025 12:00am administer with a meal Complies with drug therapy Start: 06-05-2025 take 1 capsule by mo ut once daily Cranberry 500 mg capsule Active 1000 mg PO DAILY June 05, 2025 12:00am administer with a meal dicyclomine hydrochloride 10 mg oral capsule (4 sources) Anticholinergic Start: 06-05-2025 take 1 capsule by mouth every eight hours as needed Dicyclomine 10 mg capsule Active 10 mg PO EVERY 8 HOURS as needed for cramps June 05, 2025 12:00am Complies with drug therapy fish oil-omega-3 fatty acids 300-1,000 mg capsule (3 sources) take 1 capsule by mouth once daily fish oil-omega-3 fatty acids 300-1,000 mg capsule Take 2 g by mouth daily . 0 Active FLUoxetine 20 mg oral capsule (4 sources) Serotonin Reuptake Inhibitor take 1 capsule by mouth at bedtime FLUoxetine (PROZAC) 20 MG capsule Take 20 mg by mouth at bedtime . 0 Active Fluticasone Propion-Salmeterol (6 sources) Corticosteroid, beta2-Adrenergic Agonist Start: 02-27-2025 Fluticasone Propion-Salmeter ol 100-50 mcg/dose blister with device Active 1 NMA INHALATION TWICE DAILY NEEDED as needed for ASTHMA February 27, 2025 12:00am Complies with drug therapy Start: 02-27-2025 Fluticasone Pr opion-Salmeterol 100-50 mcg/dose blister with device Active 1 NMA INHALATION TWICE DAILY NEEDED as needed for ASTHMA February 27, 2025 12:00am loratadine 10 mg oral tablet (4 sources) take 1 tablet by mouth once daily loratadine (CLARITIN) 10 mg tablet Take 10 mg by mouth daily . 0 Active meloxicam 7.5 mg oral tablet (6 sources) Nonsteroidal Anti-inflammatory Drug Start: 02-28-20 take 1 tablet by mouth once daily as needed for arthritis Meloxicam 7.5 mg tablet Active 7.5 mg PO DAILY as needed for ARTHRITIS February 27, 2025 12:00am Complies with drug therapy Multivitamin (Daily Value) tablet (4 sources) Start: 06-05-20 Multivitamin (Daily Value) tablet Active 1 {tbl} PO DAILY June 05, 2025 12:00am Complies with drug therapy Start: 06-05-2025 Multivitamin ( Daily Value) tablet Active 1 {tbl} PO DAILY June 05, 2025 12:00am multivitamin (THERAGRAN) per tablet (3 sources) take 1 tablet by mouth once daily multivitamin (THERAGRAN) per tablet Take 1 tablet by mouth daily . 0 Active multivitamin with minerals (HAIR,SKIN AND NAILS ORAL) (3 sources) multivitamin wit h minerals (HAIR,SKIN AND NAILS ORAL) Take by mouth daily . 0 Active [place]-3 Fatty Acids capsule (4 sources) Start: 06-05-2025 take 1 capsule by mouth once daily [place]-3 Fatty Acids capsule Active 1000 mg PO DAILY June 05, 2025 12:00am Complies with drug therapy Start: 06-05-2025 take 1 capsule by mouth once d aily [place]-3 Fatty Acids capsule Active 1000 mg PO DAILY June 05, 2025 12:00am omeprazole 20 mg delayed release oral capsule (6 sources) Proton Pump Inhibitor Start: 02-27-2025 take 1 capsule by mouth once daily as needed for gastroesophageal reflux disease Omeprazole 20 mg capsule,delayed release(DR/EC) Active 20 mg PO DAILY NEEDED as needed for GERD February 27, 2025 12:00am Complies with drug therapy Potassium Chloride (3 sources) POTASSIUM CHLORI DE ORAL Take by mouth . 0 Active Potassium Citrate-Citric Acid 1,100-334 mg/5 mL solution (2 sources) Start: 06-09-2025 Potassium Citrate-Citric Acid 1,100-334 mg/5 mL solution Active 10 mL PO 2 times per day with meals 473 June 09, 2025 12:00am simvastatin 40 mg oral tablet (4 sources) HMG-CoA Reductase Inhibitor take 1 tablet by mouth once daily in the morning simvastatin (ZOCOR) 40 MG tablet Take 40 mg by mouth every morning . 0 Active traMADol hydrochloride 50 mg oral tablet (4 sources) Opioid Agonist Start: 06-05-2025 take 1 tablet by mouth every eight hours as needed for arthritis Tramadol 50 mg tablet Active 50 mg PO EVERY 8 HOURS as needed for arthritis June 05, 2025 12:00am Complies with drug therapy Completed/Discontinued Medications Medication Drug Class(es) Dates Sig (Normalized) Sig (Original) acetaminophen 325 mg / HYDROcodone bitartrate 5 mg oral tablet (2 sources) Opioid Agonist Start: 02-10-2019 End: 02-11-2019 take 1 tablet by mouth every six hours as needed HYDROcodone-aceta minophen (NORCO) 5-325 mg per tablet 1 tablet Start: 02-10-2019 End: 02-12-2019 take 1 tablet by mouth every six hours as needed for pain HYDROcodone-acetaminophen (NORCO) 5-325 mg per tablet Indications: Closed fracture of multiple ribs of left side, initial encounter , Contusion of left lung, initial encounter Take 1 (one) tablet by mouth every 6 (six) hours as needed for pain TAKE HOME PACK . 4 tablet 0 02/10/2019 02/12/2019 Active acetaminophen 325 mg / oxyCODONE hydrochloride 5 mg oral tablet (18 sources) Opioid Agonist Start: 07-13-2025 End: 08-02-2025 Oxycodone-Acetaminophen 5-32 5 mg tablet Discontinued 1 {tbl} PO Q8H as needed for pain 10 3 0 July 13, 2025 August 02, 2025 10:45am Calculus of kidney Calculus of kidney Start: 06-15-2025 End: 06-29-2025 Oxycodone-Acetaminophen 5-32 5 mg tablet Discontinued 1 {tbl} PO Q8H as needed for pain 10 3 0 June 15, 2025 June 29, 2025 9:01am Calculus of kidney Calculus of kidney Start: 03-02-2025 End: 06-05-2025 Oxycodone-Acetaminophen 5-32 5 mg tablet Discontinued 1 {tbl} PO Q8H as needed for pain 10 3 0 March 02, 2025 June 05, 2025 11:04am Calculus of ureter Calculus of ureter Start: 01-13-2020 End: 01-18-2020 Oxycodone-Acetaminophen 1 TA BLET tablet Discontinued 1 {tbl} PO EVERY 6 HOURS NEEDED as needed for Pain Score 4-5/10 20 5 0 January 13, 2020 January 17, 2020 12:00am January 18, 2020 12:08am Calculus of kidney Calculus of kidney atorvastatin 10 mg oral tablet (10 sources) HMG-CoA Reductase Inhibitor Start: 02-27-2025 End: 06-29-2025 take 1 tablet by mouth once daily Atorvastatin (Lipitor) 10 mg tablet Discontinued 10 mg PO DAILY June 05, 2025 12:00am June 29, 2025 9:00am busPIRone hydrochloride 5 mg oral tablet (11 sources) Start: 01-13-2020 End: 06-05-2025 take 1 tablet by mouth twice daily Buspirone 5 MG tablet Discontinued 5 mg PO TWICE A DAY January 13, 2020 1:00am June 05, 2025 11:02am Start: 01-13-2020 take 1 tablet by laurie th three times daily Buspirone 5 MG tablet Active 5 mg PO THREE TIMES A DAY January 13, 2020 1:00am take 1 tablet by laurie th once daily busPIRone (BUSPAR) 15 MG tablet Take 15 mg by mouth daily . 0 Active cephalexin 500 mg oral capsule (11 sources) Cephalosporin Antibacterial Start: 07-13-2025 End: 08-02-2025 take 1 capsule by mouth every twelve hours Cephalexin 500 mg capsule Discontinued 500 mg PO EVERY 12 HOURS 6 3 0 July 13, 2025 12:00am August 02, 2025 10:45am post-operative Start: 06-15-2025 End: 06-29-2025 take 500 mg by mouth twice daily Cephalexin 250 mg/5 mL suspension for reconstitution Discontinued 500 mg PO TWICE A DAY 60 3 0 June 15, 2025 12:00am June 29, 2025 9:00am Start: 03-02-2025 End: 06-05-2025 take 1 capsule by mouth every twelve hours Cephalexin 500 mg capsule Discontinued 500 mg PO EVERY 12 HOURS 6 3 0 March 02, 2025 12:00am June 05, 2025 11:11am post-operative HYDROmorphone (DILAUDID) 0.5 mg/mL injection 0.25 mg (1 source) Start: 02-10-2019 End: 02-10-2019 HYDROmorphone (DILAUDID) 0.5 mg/mL injection 0.25 mg ondansetron 4 mg disintegrating oral tablet (19 sources) Serotonin-3 Receptor Antagonist Start: 06-15-2025 End: 08-02-2025 take 1 tablet by mouth every eight hours as needed for nausea and vomiting Ondansetron 4 mg tablet,disintegrati ng Discontinued 4 mg PO Q8H as needed for nausea and vomiting 10 July 13, 2025 12:00am August 02, 2025 10:45am Start: 03-02-2025 End: 06-05-2025 take 1 tablet by mouth every eight hours as needed for nausea and vomiting Ondansetron 8 mg tablet,disintegrating Discontinued 8 mg PO Q8H as needed for nausea and vomiting 10 March 02, 2025 12:00am June 05, 2025 11:04am Start: 01-13-2020 End: 06-05-2025 take 1 tablet by mouth every eight hours as needed for nausea Ondansetron 4 MG tablet Discontinued 4 mg PO EVERY 8 HOURS NEEDED as needed for Nausea January 13, 2020 1:00am June 05, 2025 11:04am Start: 02-10-2019 End: 02-10-2019 ondansetron (ZOFRAN) injecti on 4 mg phenazopyridine hydrochloride 200 mg oral tablet (9 sources) Start: 06-15-2025 End: 08-02-2025 take 1 tablet by mouth three times daily as needed for pain Phenazopyridine 200 mg tablet Discontinued 200 mg PO THREE TIMES A DAY as needed for pain 30 June 15, 2025 12:00am August 02, 2025 10:46am Start: 03-02-2025 End: 06-05-2025 take 1 tablet by mouth three times daily as needed for pain Phenazopyridine 200 mg tablet Discontinued 200 mg PO THREE TIMES A DAY as needed for pain 30 March 02, 2025 12:00am June 05, 2025 11:04am potassium citrate 15 meq extended release oral tablet (4 sources) Start: 06-05-2025 End: 06-09-2025 take 1 tablet by mouth twice daily Potassium Citrate 15 mEq tablet extended release Discontinued 15 meq PO TWICE A DAY June 05, 2025 12:00am June 09, 2025 1:18pm psyllium 400 mg oral capsule (4 sources) Start: 06-05-2025 End: 08-02-2025 Psyllium Husk (Metamucil) 0.4 gram capsule Discontinued 0.4 g PO DAILY June 05, 2025 12:00am August 02, 2025 10:46am sodium chloride (PF) (NS) 0.9 % contrast line flush 10 mL (1 source) Start: 02-10-2019 End: 02-11-2019 sodium chloride (PF) (NS) 0.9 % contrast line flush 10 mL tamsulosin hydrochloride 0.4 mg oral capsule (13 sources) alpha-Adrenerg ic [place] Start: 01-13-2020 End: 06-05-2025 take 1 capsule by mouth at bedtime Tamsulosin 0.4 MG capsule Discontinued 0.4 mg PO AT BEDTIME February 27, 2025 12:00am June 05, 2025 11:05am Problems Active Problems Problem Classification Problem Date Documented Date Episodic/Chronic Calculus of urinary tract (20 sources) Ureteric stone; Translations: [Calculus of ureter] Onset: 03-02-2025 03-02-2025 Episodic Chronic kidney disease (1 source) Chronic kidney disease; Translations: [Chronic kidney disease, stage 3a] Onset: 05-09-2025 Chronic obstructive pulmonary disease and bronchiectasis (1 source) Chronic obstructive pulmonary disease, unspecified; Translations: [Chronic obstructive pulmonary disease, unspecified] Onset: 01-25-2025 Chronic Disorders of lipid metabolism (1 source) Hyperlipidemia, unspecified; Translations: [Hyperlipidemia, unspecified] Onset: 05-09-2025 Chronic Genitourinary congenital anomalies (3 sources) Congenital multiple renal cysts; Translations: [Multiple renal cysts] Onset: 02-10-2019 Chronic Genitourinary symptoms and ill-defined conditions (8 sources) Genuine stress incontinence; Translations: [Stress incontinence (female) (male)] Onset: 07-27-2025 06-05-2025 Chronic Intracranial injury (5 sources) Concussion with loss of consciousness of unspecified duration, initial encounter; Translations: [Concussion with no loss of consciousness] Onset: 02-15-2019 02-15-2019 Episodic Other fractures (6 sources) Multiple fractures of ribs, left side, initial encounter for closed fracture; Translations: [Closed fracture of multiple ribs of left side, initial encounter] Onset: 02-10-2019 Episodic Other injuries and conditions due to external causes (1 source) Closed injury of head; Translations: [Closed head injury, initial encounter] Episodic Other injuries and conditions due to external causes (2 sources) Unspecified injury of head, initial encounter; Translations: [Unspecified injury of head, initial encounter] Onset: 02-10-2019 Other non-traumatic joint disorders (8 sources) Pain in left wrist; Translations: [Left wrist pain] Onset: 02-15-2019 02-15-2019 Episodic Other non-traumatic joint disorders (1 source) Pain of left wrist; Translations: [Left wrist pain] Onset: 02-15-2019 02-15-2019 Other nutritional; endocrine; and metabolic disorders (7 sources) Hypercalcemia; Translations: [Hypercalcemia] 06-05-2025 Chronic Sprains and strains (6 sources) Strain of flexor muscle of hip; Translations: [Strain of neck muscle] Onset: 02-10-2019 Episodic Past or Other Problems Problem Classification Problem Date Documented Da te Episodic/Chronic Cardiac dysrhythmias (1 source) Palpitations; Translations: [Palpitations] Onset: 01-25-2025 Episodic Crushing injury or internal injury (9 sources) Contusion of lung; Translations: [Contusion of lung, unilateral, initial encounter] Onset: 02-10-2019 02-15-2019 Episodic Other fractures (3 sources) Fracture of rib; Translations: [Rib fractures] Onset: 02-15-2019 02-15-2019 Episodic Other injuries and conditions due to external causes (1 source) Concussion injury of body structure; Translations: [Concussion] Onset: 02-15-2019 02-15-2019 Episodic Other screening for suspected conditions (not mental disorders or infectious disease) (3 sources) Other specified abnormal findings of blood chemistry; Translations: [Encounter for screening for malignant neoplasm of respiratory organs] Onset: 11-23-2024 Episodic Results Test Name Value Interpretation Reference Range Facility Abdomen Single Viewon 2024 Abdomen Single View [facility] [address] [place] [address] [id number] Abdomen Single View MR#: [id number] Acct: [id number] Name: BRAXTON MARTINEZ Rep #: [id number] : 1960 F 64 From: Cristino Prater MD PCP: Julee Isiah, BRANCH DIRECTOR-C Status: REG CLI Study: Abdomen Single View Date of Exam: 08/02/25 Exam# [id number] Ordering Dr: Paige Johansen MD PROCEDURE: ABDOMEN SINGLE VIEW 08/02/2025 REASON FOR EXAM: KUB- KIDNEY STONE TECHNIQUE: Procedure Code: RADABD Modality: DX Procedure: ABDOMEN SINGLE VIEW COMPARISON: KUB, 03/28/2025. FINDINGS: There is a nonobstructive bowel gas pattern. There is a left double-J ureteral stent. There are no abnormal soft tissue calcifications. There is mild levoscoliosis of the lumbar spine. RAD/Abdomen Single View IMPRESSION: Left-sided double-J ureteral stent. No evidence of nephrolithiasis or ureterolithiasis. Reading Location: [id number] CC: BRANCH DIRECTORDelma Joyce; Dr. Paige Johansen MD Engine Head Repairer: Signed Normal [facility] Laboratory - Chemistry and C hemistry - challengeOrdered By: Paige Johansen on 08-02-2025 Bilirubin Ql (U) Negative [facility] Glucose Ql (U) Negative [facility] Ketones Ql (U) Negative [facility] pH (U) 6 [pH] [facility] Specific gravity (U) [Rel density] 1.020 [facility] Urobilinogen (U) [Mass/Vol] 0.4933725 mg/dL [facility] Laboratory - Hematology and Cell countsOrdered By: Paige Johansen on 08-02-2025 Hemoglobin Ql (U) Large [facility] Comment on above: stent for kidney sto ne Laboratory - UrinalysisOrder ed By: Paige Johansen on 08-02-2025 Nitrite Ql (U) Negative [facility] Protein Ql (U) 3+ [facility] MR/Arcadio 08-02-2025 /ZAID [facility] [address], [address] [place] [address] OFFICE VISIT Date of Service: 08/02/25 MR#: [id number] Acct: [id number] Name: BRAXTON MARTINEZ Rep #: [id number] : 1960 Provider: Dr. Paige Otoole i, MD Age/Sex: 64/F Location: [facility] Status: Signed Intake Vital Signs 07/13/25 07:06 08/02/25 10:46 Height 5 ft 3 in 5 ft 3 in Weight: 129 lb BMI 22.8 BP 133/77 H Pulse 70 Intake Visit Reasons: KUB first/poss. stent removal Chief Complaint: stent removal Director Of Medical Education Required: No Accompanied by: self Is patient in pain?: Yes (pelvic aggravation ) Pain scale (1-10): 3 Allergies codeine Allergy (Verified 08/02/25 10:44) Itching Medications ???Medication ???Instructions ???Recorded ???Confirmed ???Type alendronate 70 mg tablet 70 mg PO QWEEK 02/27/25 08/02/25 H istory aspirin 81 mg tablet,delayed 81 mg PO QHS 02/27/25 08/02/25 His tory release (Adult Low Dose Aspirin) atorvastatin 10 mg tablet 10 mg PO QHS 02/27/25 08/02/25 His tory fluticasone 100 mcg-salmeterol 50 1 inh inhalation BID PRN PRN ASTH MA 02/27/25 08/02/25 History mcg/dose blistr powdr for inhalation meloxicam 7.5 mg tablet 7.5 mg PO DAILY PRN ARTHRITIS 02/0808/02/25 History omeprazole 20 mg capsule,delayed 20 mg PO DAILY PRN PRN GERD 08/02/25 History release ascorbic acid (vitamin C) 1,000 mg 1,000 mg PO DAILY 06/05/2508/02 History tablet,extended release (C Complex) biotin 10,000 mcg chewable tablet 10,000 mcg PO .qd 06/05/25 History (Hair, Skin and Nails (biotin)) bupropion HCl 150 mg 24 hr tablet, 150 mg PO .qd 06/05/25 08/02/25 History extended release xbykhng-oqglxgnrd-ffjh tablet 1 tab PO .qd 06/05/25 08/02/25 His tory cholecalciferol (vitamin D3) 100 5,000 unit PO DAILY 06/05/2508/02 History mcg (4,000 unit) capsule cranberry 500 mg capsule 1,000 mg PO DAILY 06/05/25 5 History dicyclomine 10 mg capsule 10 mg PO Q8 PRN cramps 06/05/25 History multivitamin (Daily Value tablet) 1 tab PO DAILY 06/05/25 08/02/25 History omega-3 fatty acids 1,000 mg PO DAILY 06/05/25 5 History tramadol 50 mg tablet 50 mg PO Q8 PRN arthritis 06/05/25 08/02/25 History potassium citrate-citric acid 10 ml PO BIDWMEAL #473 mL 06/09/25 08/02/25 Rx 1,100 mg-334 mg/5 mL oral solution ondansetron 4 mg disintegrating 4 mg PO Q8H PRN nausea and 5 08/02/25 Rx tablet vomiting #10 tabs Have you fallen in the past year?: No PFSH Medical History H/O nephrolithotomy with removal of calculi H/O bone density study H/O mammogram Diverticular disease UTI (urinary tract infection) GERD (gastroesophageal reflux disease) Hyperlipidemia COPD (chronic obstructive pulmonary disease) IBS (irritable bowel syndrome) Arthritis Myalgia Osteoporosis Hydronephrosis Obstructed, uropathy Chronic kidney disease, stage 3b Bilateral renal cysts Intermittent palpitations Dysphagia Stroke Ureteral calculus Loss of hearing Wears contact lenses Wears dentures Post-menopausal Depression Anxiety History of steroid therapy Rheumatoid arthritis Bladder disease Easy bruising High cholesterol Migraine headache Degenerative disc disease at L5-S1 level DDD (degenerative disc disease), thoracic DDD (degenerative disc disease), cervical Injury of head and neck TIA (transient ischemic attack) Syncope History of diverticulitis History of IBS Gastric reflux Asthma Leg cramps Smoker Surgical History History of extracorporeal shockwave lithotripsy (ESWL) History of esophagogastroduodenoscopy (EGD) Hx of colonoscopy History of cystoscopy Hx of tubal ligation Family History Sister Hypertension Cancer Grandfather Heart disease Grandmother Diabetes Cancer Unknown Cancer Father FH: kidney cancer Social History Smoking Status: Current every day smoker tobacco type: cigarettes Smokeless tobacco user: other Electronic Cigarette Use: with nicotine quit status: considering quitting alcohol intake: never substance use type: other details: CBD GUMMIES what type of physical activity do you participate in: other frequency: 1-2 times per week duration: other do you feel safe at home: Yes HPI HPI Urology Chief Complaint: stent removal Details: BRAXTON MARTINEZ, is a 64 F. She is here for stent removal. She is doing well, no concerns. ROS Const Constitutional: No chills, fatigue, fever(s), headache(s), night sweats, weakness, weight change, abnormal sleep pattern or change in appetite Eyes Eyes: No change in vision EN (more content not included)... Normal [facility] No Panel InformationOrdered By: Paige Johansen on 08-02-2025 Urine Leukocytes Positive [facility] Urine Non-Hemolyzed Blood Large [facility] Discharge Instructionon Discharge Instruction [facility] Medical Records Department [address] [place] [address] Instructions for Home/Discharge Instructions 07/13/25 0834 MR#: [id number] Acct: [id number] Name: BRAXTON MARTINEZ Rep #: [id number] : 1960 64 From: Paige Johansen MD PCP: Julee Joyce NP-C Status:REG [facility] Discharge Instructions Diet Discharge Diet: No restrictions Activity Discharge Activity: Return to Normal Activity Dressing / Incision Call your doctor if you observe: Fever of 101 or Higher, Inability to urinate and Inability to have a bowel movement Follow Up Care Please Follow Up With: Paige Johansen MD When: 2-3 weeks with KUB Test Results: Test results from this visit will be discussed in further detail at your follow-up appointment, if applicable. Discharge Plan Admission Attending Provider: Paige Johansen Primary Care Provider: Julee Joyce NP Instructions Print Language: Martiniquais Discharge Orders/Prescriptions Prescriptions: New oxycodone-acetaminophen 5-325 mg tablet 1 tab PO Q8H PRN (Reason: pain) 3 Days Qty: 10 0RF cephalexin 500 mg capsule 500 mg PO Q12 3 Days Qty: 6 0RF ondansetron 4 mg tablet,disintegrating 4 mg PO Q8H PRN (Reason: nausea and vomiting) Qty: 10 0RF Continued potassium citrate-citric acid 1,100-334 mg/5 mL solution 10 ml PO BIDWMEAL Qty: 473 6RF aspirin [Adult Low Dose Aspirin] 81 mg tablet,delayed release (DR/EC) 81 mg PO QHS omeprazole 20 mg capsule,delayed release(DR/EC) 20 mg PO DAILY PRN PRN (Reason: GERD) fluticasone propion-salmeterol 100-50 mcg/dose blister with device 1 inh inhalation BID PRN PRN (Reason: ASTHMA) atorvastatin 10 mg tablet 10 mg PO QHS alendronate 70 mg tablet 70 mg PO QWEEK meloxicam 7.5 mg tablet 7.5 mg PO DAILY PRN (Reason: ARTHRITIS) bupropion HCl 150 mg tablet extended release 24 hr 150 mg PO .qd dicyclomine 10 mg capsule 10 mg PO Q8 PRN (Reason: cramps) tramadol 50 mg tablet 50 mg PO Q8 PRN (Reason: arthritis) C Complex 1,000 mg tablet extended release 1,000 mg PO DAILY cholecalciferol (vitamin D3) 100 mcg (4,000 unit) capsule 5,000 unit PO DAILY ufznjbo-wbeqvqdrt-frtw Tablet 1 tab PO .qd omega-3 fatty acids Capsule 1,000 mg PO DAILY Hair, Skin and Nails (biotin) 10,000 mcg tablet,chewable 10,000 mcg PO .qd cranberry 500 mg capsule 1,000 mg PO DAILY Rx Instructions: administer with a meal psyllium husk [Metamucil] 0.4 gram capsule 0.4 g PO DAILY multivitamin [Daily Value] Tablet 1 tab PO DAILY ondansetron 4 mg tablet,disintegrating 4 mg PO Q8H PRN (Reason: nausea and vomiting) Qty: 10 0RF phenazopyridine 200 mg tablet 200 mg PO TID PRN (Reason: pain) Qty: 30 3RF Referrals / Follow Up: Julee Joyce NP, BRANCH DIRECTOR-C [Primary Care Provider] - Disposition Disposition (needs filled in before D/C Order can be placed): Home, Self Care 07/13/25 9994 Paige Johansen MD CC: BRANCH DIRECTOR-C Julee Joyce Signed Normal [facility] H AND P Exam - Surgicalon H&P Exam - Surgical [facility] Medical Records Department [address] [place] [address] H P Exam - Surgical 07/13/25 0750 MR#: [id number] Acct: [id number] Name: BRAXTON MARTINEZ Rep #: [id number] : 1960 64 From: Paige Johansen MD PCP: GEOVANNA Kolb Status:[facility] Location: [place] [address] HPI - General General Date of Admission: 07/13/25 Date of Service: 07/13/25 Chief Complaint: Renal stones HPI Narrative History Physical Exam 06/22/25 0905 MR#: [id number] Acct: [id number] Name: BRAXTON MARTINEZ Rep #: [id number] : 1960 64 From: Paige Johansen MD PCP: GEOVANNA Kolb Status: [facility] Location: [facility] History and Physical Date of Admission: 06/15/25 Intake Vital Signs 03/02/2508:52 06/09/2511:27 Height 5 ft 3 in 5 ft 3 in Weight: 130 lb BMI 23.0 BP 123/90 H Pulse 77 Intake Visit Reasons: PRE OP URINE C S SIGN CONSENT Chief Complaint: preoperative with urine and consent Director Of Medical Education Required: No Accompanied by: Self Is patient in pain?: No Allergies codeine Allergy (Verified 06/09/25 11:25)Itching Medications ???Medication ???Instructions ???Recorded ???Confirmed ???Type alendronate 70 mg tablet 70 mg PO QWEEK 02/27/25 06/09/25 History aspirin 81 mg tablet,delayed 81 mg PO QHS 02/27/25 06/09/25 History release (Adult Low Dose Aspirin) atorvastatin 10 mg tablet 10 mg PO QHS 02/27/25 06/09/25 History fluticasone 100 mcg-salmeterol 50 1 inh inhalation BID PRN PRN ASTHMA 02/27/2506/09 History mcg/dose blistr powdr for inhalation meloxicam 7.5 mg tablet 7.5 mg PO DAILY PRN ARTHRITIS 02/27/25 06/09/25 Hi story omeprazole 20 mg capsule,delayed 20 mg PO DAILY PRN PRN GERD 02/27/25 06/09/25 Hist ory release ascorbic acid (vitamin C) 1,000 mg 1,000 mg PO DAILY 06/05/25 06/09/25 History tablet,extended release (C Complex) atorvastatin 10 mg tablet (Lipitor) 10 mg PO DAILY 06/05/25 06/09/25 History biotin 10,000 mcg chewable tablet 10,000 mcg PO .qd 06/05/25 06/09/25 History (Hair, Skin and Nails (biotin)) bupropion HCl 150 mg 24 hr tablet, 150 mg PO .qd 06/05/25 06/09/25 History extended release ycgbkjd-qcpwwhaem-kavn tablet 1 tab PO .qd 06/05/25 06/09/25 History cholecalciferol (vitamin D3) 100 5,000 unit PO DAILY 06/05/25 06/09/25 History mcg (4,000 unit) capsule cranberry 500 mg capsule 1,000 mg PO DAILY 06/05/25 06/09/25 History dicyclomine 10 mg capsule 10 mg PO Q8 PRN cramps 06/05/25 06/09/25 History multivitamin (Daily Value tablet) 1 tab PO DAILY 06/05/25 06/09/25 History omega-3 fatty acids 1,000 mg PO DAILY 06/05/25 06/09/25 History psyllium husk 0.4 gram capsule 0.4 g PO DAILY 06/05/25 06/09/25 History (Metamucil) tramadol 50 mg tablet 50 mg PO Q8 PRN arthritis 06/05/25 06/09/25 Histor y potassium citrate-citric acid 10 ml PO BIDWMEAL #473 mL 06/09/25 06/09/25 Rx 1,100 mg-334 mg/5 mL oral solution Post menopausal: Yes Patient : No Have you fallen in the past year?: No PFSH Medical History H/O nephrolithotomy with removal of calculi H/O bone density study H/O mammogram Diverticular disease UTI (urinary tract infection) GERD (gastroesophageal reflux disease) Hyperlipidemia COPD (chronic obstructive pulmonary disease) IBS (irritable bowel syndrome) Arthritis Myalgia Osteoporosis Hydronephrosis Obstructed, uropathy Chronic kidney disease, stage 3b Bilateral renal cysts Intermittent palpitations Dysphagia Stroke Ureteral calculus Loss of hearing Wears contact lenses Wears dentures Post-menopausal Depression Anxiety History of steroid therapy Rheumatoid arthritis Bladder disease Easy bruising High cholesterol Migraine headache Degenerative disc disease at L5-S1 level DDD (degenerative disc disease), thoracic DDD (degenerative disc disease), cervical Injury of head and neck TIA (transient ischemic attack) Syncope History of diverticulitis History of IBS Gastric reflux Asthma Leg cramps Smoker Surgical History (Updated 06/05/25 @ 14:34 by Dyana Campbell) History of esophagogastroduodenoscopy (EGD) Hx of colonoscopy History of cystoscopy Hx of tubal ligation Family History (Updated 06/05/25 @ 14:36 by Dyana Campbell) Sister Hypertension CancerGrandfather Heart diseaseGrandmother Diabetes CancerUnknown CancerFather FH: kidney cancer Social History (Updated 06/05/25 @ 14:37 by Dyana Campbell) Smoking Status: Current every day smoker tobacco type: cigarettes Smokeless tobacco user: other Electronic Cigarette Use: with nicotine quit status: considering quitting alcohol intake: never substance use type: other details: CBD GUMMIES what type of physical (more content not included)... [facility] MR/POSTOP.[facility] 07-13-2025 MR/POSTOP.[facility] Medical Records Department [address] [place] [address] Anesthesia Postop Eval I 07/13/25 0950 MR#: [id number] Acct: [id number] Name: BRAXTON MARTINEZ Rep #: [id number] : 1960 64 From: Gisel Wilson CRNA PCP: GEOVANNA Kolb Status:REG [facility] Y Race: C Location: [place] [address] Anesthesia: Postop Eval I Current Vital Signs Temperature: 97 F Pulse Rate: 71 Blood Pressure: 112/53 Respiratory Rate: 16 Pulse Ox: 98 Oxygen Delivery Method: Room Air Assessment Airway patent: Yes Spontaneous unlabored respirations: Yes Mental status: Awake and Calm nausea: No Vomiting: No Anesthesia Complication: No Fluid Hydration Crystalloid volume administer (ml): 600 Total IV fluid infused: 600 Progress Note Anesthesia document: Postop Eval 1 completed: Yes 07/13/25950 Date Gisel Wangignjulio Signature: Date CC: Signed Normal [facility] MR/[id number] 07-13-2025 MR/POSTOPAN2 [facility] Medical Records Department [address] [place] [address] Anesthesia Postop Eval II 07/13/25 1523 MR#: [id number] Acct: [id number] Name: BRAXTON MARTINEZ Adal Rep #: [id number] : 1960 64 From: Miguel Angel Wilson CRNA PCP: GEOVANNA Klob Status:[facility] Y Race: C Location: [facility] Anesthesia Postop Eval I Sum Postop Eval Completion status Anesthesia document: Postop Eval 1 completed: Yes Anesthesia Postop Eval I Summary Anesthesia Postop Eval I Summary: Anesthesia Postop Eval I: Assessment Summary Airway patent Yes 07/13/25 09:51 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.GDOTT Spontaneous unlabored Yes 07/13/25 09:51 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.AMYOTT respirations Mental status Awake,Calm 07/13/25 09:51 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.GDOTT nausea No 07/13/25 09:51 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.GDOTT Vomiting No 07/13/25 09:51 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.GDOTT Anesthesia Postop Eval I: Fluid Summary Crystalloid volume administer 600 07/13/25 09:51 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.GDOTT (ml) Colloids volume administered ( ml) Blood Product volume administered (ml) Total IV fluid infused 600 07/13/25 09:51 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.GDOTT Anesthesia Postop Eval I: Summary Notes Anesthesia Complication No 07/13/25 09:51 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.GDOTT Anesthesia Complication Comment: Post-operative progress note Anesthesia: Postop Eval II Evaluation Mental status: Awake and Calm Pain Level: 0 nausea: No Vomiting: No Complications Anesthesia Complication: No 07/13/25 1523 Date Miguel Angel Ivy Signature: Date CC: Signed Normal [facility] Operative Reporton 5 Operative Report [facility] Medical Records Department [address] [place] [address] Operative Report 07/13/25 0837 MR#: [id number] Acct: [id number] Name: MICHELLEBRAXTON Adal Rep #: [id number] : 1960 64 From: Paige Johansen MD PCP: GEOVANNA Kolb Status:[facility] Location: [facility] Operative Report (Standard) Operative Information Date of Procedure: 07/13/25 Pre-Operative Diagnosis: bilateral renal stones Post-Operative Diagnosis: same Surgery/Procedure Performed: cystoscopy, right ureteral stent removal, left ureteral stent insertion, left renal extracorporeal shockwave lithotripsy lawn specialist: No Type of Anesthesia: General RN Documented Start/Stop Times: Operation Date: 07/13/25 08:15 Case Time Into Pre-Op 07/13/25 06:52 Out of Pre-Op 07/13/25 07:25 Anesthesia Start 07/13/25 08:28 Into Room 07/13/25 08:28 Procedure Start 07/13/25 08:47 Procedure End 07/13/25 09:37 Anesthesia End 07/13/25 09:42 Out of Room 07/13/25 09:42 Into Recovery 07/13/25 09:45 Into Phase II Recovery 07/13/25 10:07 Out of Recovery 07/13/25 10:07 Out of Phase II 07/13/25 11:12 Procedure Start Time: 08:47 Procedure Stop Time: 09:37 Select all DRAINS/GRAFTS/IMPLANTS that apply: Drains Drain details: stent Estimated Blood Loss: minimal Specimen collected: No Description of surgery: The patient is a 64-year-old female who previously underwent right extracorporal shockwave lithotripsy who now presents for left-sided treatment. Informed consent was obtained. The patient was taken to the operating room and placed on the operating table. Anesthesia monitored the head, neck, airway, IV access and throughout the case. Once anesthesia was appropriately administered, fluoroscopy was utilized to evaluate the right kidney. No stone was identified. The 4.5 [place]ayan ureteral stent had migrated distally. The left kidney was then evaluated revealing that a portion of her left renal stone had fallen into the UPJ and there were further fragments in the upper pole. She was placed into dorsolithotomy position was prepped and draped in usual sterile fashion. The cystoscope was inserted through the urethra under direct visualization into the urinary bladder. The right ureteral stent was grasped and removed without difficulty. A 0.035 Glidewire was then used to gently cannulate the left ureteral orifice and the wire was advanced into the renal pelvis is seen on fluoroscopy. A 6 Par[place]ayan 24 cm JJ stent was placed over the wire with good positioning in the renal pelvis and the urinary bladder. The urinary bladder was then emptied and the cystoscope was removed. She was repositioned on the table into a supine position with knees elevated. A total of 3000 shocks were applied to the multitude of stones which appeared to be well fragmented at the conclusion of the case. She was then awakened and taken to the recovery room in good condition. There were no complications during this procedure. Surgical Findings: Right stone fragments resolved, stent removed. Left stent and shockwave lithotripsy. Complications Complications: No Admit VTE Documentation VTE Present on Admission: Yes VTE Mechan Device Prophylaxis: SCD's Reason prophylaxis not ordered: Treatment Not Indicated 07/13/25 1139 Cosigner Signature (if applicable): CC: GEOVANNA Joyce; Dr. Paige Johansen MD Signed Normal [facility] Laboratory - Chemistry and C hemistry - challengeOrdered By: Paige Johansen on 07-06-2025 Bilirubin Ql (U) Negative [facility] Glucose Ql (U) Negative [facility] Ketones Ql (U) Negative [facility] pH (U) 6 [pH] [facility] Specific gravity (U) [Rel density] 1.015 [facility] Urobilinogen (U) [Mass/Vol] Negative [facility] Laboratory - Hematology and Cell countsOrdered By: Paige Johansen on 07-06-2025 Hemoglobin Ql (U) Moderate [facility] Laboratory - UrinalysisOrder ed By: Paige Johansen on 07-06-2025 Nitrite Ql (U) Negative [facility] Protein Ql (U) Trace [facility] No Panel InformationOrdered By: Paige Johansen on 07-06-2025 Urine Leukocytes Positive [facility] Urine Non-Hemolyzed Blood Negative [facility] Office Visit Reporton [address] [facility] [place] [address] OFFICE VISIT Date of Service: 07/06/25 MR#: [id number] Acct: [id number] Patient: BRAXTON MARTINEZ Rep #: [id number] : 1960 Provider: Dr. Paige Otoole i, MD Age/Sex: 64/F [place] [facility] Status: Signed Intake Vital Signs 06/15/25 07:57 Height 5 ft 3 in Intake Visit Reasons: Pre op urine C S Chief Complaint: preoperative with urine and consent Allergies codeine Allergy (Verified 07/13/25 07:03) Itching Have you fallen in the past year?: No Nurse's Note: Pre-op urine Assessment and Plan Assessment and Plan Orders: Orders POC UA Pre-op 07/06/25 N39.3 - Stress incontinence (female) (male) Clinical Quality Measures Falls Risk Screening/Assistive Devices Have you fallen in the past year?: No 07/20/25 1259 Date Paige Johansen MD Cosigner Signature: Date (if applicable) CC: Normal [facility] Laboratory - Chemistry and C hemistry - challengeOrdered By: Paige Johansen on 06-22-2025 Bilirubin Ql (U) Negative [facility] Glucose Ql (U) Negative [facility] Ketones Ql (U) Negative [facility] pH (U) 6 [pH] [facility] Specific gravity (U) [Rel density] 1.010 [facility] Urobilinogen (U) [Mass/Vol] Negative [facility] Laboratory - Hematology and Cell countsOrdered By: Paige Johansen on 06-22-2025 Hemoglobin Ql (U) Negative [facility] Laboratory - UrinalysisOrder ed By: Paige Johansen on 06-22-2025 Nitrite Ql (U) Negative [facility] Protein Ql (U) Negative [facility] No Panel InformationOrdered By: Paige Johansen on 06-22-2025 Urine Leukocytes Positive [facility] Urine Non-Hemolyzed Blood Negative [facility] Discharge Instructionon Discharge Instruction [facility] System Medical Records Department [address] [place] [address] Instructions for Home/Discharge Instructions 06/15/25 1019 MR#: [id number] Acct: [id number] Name: BRAXTON MARTINEZ Rep #: [id number] : 1960 64 From: Paige Johansen MD PCP: Julee Joyce NP-C Status:REG [facility] Discharge Instructions Diet Discharge Diet: No restrictions Activity Discharge Activity: Return to Normal Activity Dressing / Incision Call your doctor if you observe: Fever of 101 or Higher, Inability to urinate and Inability to have a bowel movement Follow Up Care Please Follow Up With: Paige Johansen MD When: as scheduled Test Results: Test results from this visit will be discussed in further detail at your follow-up appointment, if applicable. Discharge Plan Admission Attending Provider: Paige Johansen Primary Care Provider: Julee Joyce NP Instructions Print Language: Martiniquais Discharge Orders/Prescriptions Prescriptions: New oxycodone-acetaminophen 5-325 mg tablet 1 tab PO Q8H PRN (Reason: pain) 3 Days Qty: 10 0RF cephalexin 250 mg/5 mL suspension for reconstitution 500 mg PO BID 3 Days Qty: 60 0RF ondansetron 4 mg tablet,disintegrating 4 mg PO Q8H PRN (Reason: nausea and vomiting) Qty: 10 0RF phenazopyridine 200 mg tablet 200 mg PO TID PRN (Reason: pain) Qty: 30 3RF Continued potassium citrate-citric acid 1,100-334 mg/5 mL solution 10 ml PO BIDWMEAL Qty: 473 6RF aspirin [Adult Low Dose Aspirin] 81 mg tablet,delayed release (DR/EC) 81 mg PO QHS omeprazole 20 mg capsule,delayed release(DR/EC) 20 mg PO DAILY PRN PRN (Reason: GERD) fluticasone propion-salmeterol 100-50 mcg/dose blister with device 1 inh inhalation BID PRN PRN (Reason: ASTHMA) atorvastatin 10 mg tablet 10 mg PO QHS alendronate 70 mg tablet 70 mg PO QWEEK meloxicam 7.5 mg tablet 7.5 mg PO DAILY PRN (Reason: ARTHRITIS) bupropion HCl 150 mg tablet extended release 24 hr 150 mg PO .qd dicyclomine 10 mg capsule 10 mg PO Q8 PRN (Reason: cramps) tramadol 50 mg tablet 50 mg PO Q8 PRN (Reason: arthritis) C Complex 1,000 mg tablet extended release 1,000 mg PO DAILY cholecalciferol (vitamin D3) 100 mcg (4,000 unit) capsule 5,000 unit PO DAILY arkyxps-gaqxybxdr-kqer Tablet 1 tab PO .qd omega-3 fatty acids Capsule 1,000 mg PO DAILY Hair, Skin and Nails (biotin) 10,000 mcg tablet,chewable 10,000 mcg PO .qd cranberry 500 mg capsule 1,000 mg PO DAILY Rx Instructions: administer with a meal psyllium husk [Metamucil] 0.4 gram capsule 0.4 g PO DAILY multivitamin [Daily Value] Tablet 1 tab PO DAILY atorvastatin [Lipitor] 10 mg tablet 10 mg PO DAILY Referrals / Follow Up: Julee Joyce NP, BRANCH DIRECTOR-C [Primary Care Provider] - Disposition Disposition (needs filled in before D/C Order can be placed): Home, Self Care 06/15/25 1021 Paige Johansen MD CC: BRANCH DIRECTOR-C Julee Joyce Signed [facility] MR/POSTOP.[facility] 06-15-2025 MR/POSTOP.[facility] Medical Records Department [address] [place] [address] Anesthesia Postop Eval I 06/15/25 1145 MR#: [id number] Acct: [id number] Name: BRAXTON MARTINEZ Rep #: [id number] : 1960 64 From: Miguel Angel Wilson CRNA PCP: GEOVANNA Kolb Status:[facility] Y Race: C Location: [place] [address] Anesthesia: Postop Eval I Current Vital Signs Temperature: 97.1 F Pulse Rate: 81 Blood Pressure: 132/74 Respiratory Rate: 16 Pulse Ox: 100 Oxygen Delivery Method: Room Air Assessment Airway patent: Yes Spontaneous unlabored respirations: Yes Mental status: Awake and Calm nausea: No Vomiting: No Anesthesia Complication: No Fluid Hydration Crystalloid volume administer (ml): 600 Total IV fluid infused: 600 Progress Note Anesthesia document: Postop Eval 1 completed: Yes 06/15/25 1146 Date Miguel Angel Wilson 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 Cosigner Signature: Date CC: Signed Normal [facility] Operative Reporton Operative Report [facility] Medical Records Department [address] [place] [address] Operative Report 06/15/25 1022 MR#: [id number] Acct: [id number] Name: BRAXTON MARTINEZ Rep #: [id number] : 1960 64 From: Paige Johansen MD PCP: GEOVANNA Kolb Status:[facility] Location: [place] [address] Operative Report (Standard) Operative Information Date of Procedure: 06/15/25 Pre-Operative Diagnosis: Right renal stones Post-Operative Diagnosis: Same Surgery/Procedure Performed: Cystoscopy with right ureteral stent insertion, right extracorporal shockwave lithotripsy lawn specialist: No Type of Anesthesia: General RN Documented Start/Stop Times: Operation Date: 06/15/25 09:15 Case Time Into Pre-Op 06/15/25 07:39 Out of Pre-Op 06/15/25 09:51 Anesthesia Start 06/15/25 09:56 Into Room 06/15/25 09:56 Procedure Start 06/15/25 10:03 Procedure End 06/15/25 11:13 Anesthesia End 06/15/25 11:18 Out of Room 06/15/25 11:18 Into Recovery 06/15/25 11:20 Procedure Start Time: 10:03 Procedure Stop Time: 11:13 Select all DRAINS/GRAFTS/IMPLANTS that apply: Drains Drain details: 4.5 Paraguayan x 24 cm JJ stent Estimated Blood Loss: <5cc Specimen collected: No Description of surgery: The patient is a 64-year-old female with bilateral renal stones who presents today for extracorporal shockwave lithotripsy of her large right upper pole stone. Informed consent was obtained. The patient was taken to the operating room and placed on the operating room table. Anesthesia monitored the head, neck, airway, IV access and vital signs throughout the case. Once anesthesia was appropriately ministered, she was placed into dorsolithotomy position was prepped and draped in usual sterile fashion. The cystoscope was inserted through the urethra under direct visualization into the urinary bladder. The bladder was visualized in its entirety finding no evidence of mass, erythema, ulceration or foreign body. Right ureteral orifice was intubated gently with a 0.035 Glidewire which advanced into the renal pelvis is seen on fluoroscopy. A 4.5 Paraguayan by 24 cm JJ stent was inserted over the wire with good positioning in the renal pelvis as well as the urinary bladder. The urinary bladder was then emptied and the cystoscope was removed. The patient was repositioned on the table for good visualization of the right upper pole stone without interference with the ribs. 3000 shocks were applied to the calcifications at a rate of 60. There appeared to be good fragmentation at the conclusion of the case. The patient was then awakened and taken to the recovery room in good condition. There were no complications during this procedure. Surgical Findings: Large upper pole right stone approximately 1.5cm in size. Complications Complications: No Admit VTE Documentation VTE Present on Admission: Yes VTE Mechan Device Prophylaxis: SCD's VTE Pharm Prophylaxis ordered?: No Reason prophylaxis not ordered: Treatment Not Indicated 06/15/25 2543 Cosigner Signature (if applicable): CC: GEOVANNA Joyce; Dr. Paige Johansen MD Signed [facility] 12 Lead EKGon 06-09-2025 12 Lead EKG [facility] Cardi[facility] Services [address] [place] [address] 12 Lead EKG 06/09/25 0910 MR#: [id number] Acct: [id number] Name: BRAXTON MARTINEZ Rep #: [id number] : 1960 64 From: Mo Fernandez MD Attending Dr: Dr. Paige Johansen MD Status: PRE [facility] Ordering Dr: Paige Johansen MD Date: 06/09/25 Location: [facility] Sex: F C Admitted: Test Reason : PREOP Blood Pressure : */* mmHG Vent. Rate : 66 BPM Atrial Rate : 66 BPM P-R Int : 172 ms QRS Dur : 68 ms QT Int : 372 ms P-R-T Axes : 67 39 26 degrees QTcB Int : 389 ms Normal sinus rhythm Normal ECG Confirmed by MO FERNANDEZ MD ([id number]), electronic news gathering editor SERGIO CRONIN ([id number]) on 06/09/2025 10:56:39 AM Referred By: Paige Johansen Confirmed By: MO FERNANDEZ MD 06/09/25 1056 Date Mo Fernandez MD CC: GEOVANNA Joyce; Dr. Paige Johansen MD Signed [facility] Anion gap in Serum or Plasma Ordered By: Paige Johansen on 06-09-2025 Anion gap [Moles/Vol] 11 mmol/L 03-23 [facility] BUN/creatinine ratioOrdered By: Paige Johansen on 06-09-2025 Urea nitrogen/Creatinine [Mass ratio] 17.4 mg/mg - [facility] Basic Metabolic Profile (BMP )on 06-09-2025 BUN/CRE 17.4 RATIO Normal - [facility] Comment on above: Performed By: #### L 100.0500, L500.2500 #### [facility] [address] [place], [address] Calcium [Mass/Vol] 10.5 mg/dL Normal 7.6-11.0 [facility] Comment on above: Performed By: #### L 100.0500, L500.2500 #### [facility] [address] [place], [address] Chloride [Moles/Vol] 105 mmol/L Normal 98-108 [facility] Comment on above: Performed By: #### L 100.0500, L500.2500 #### [facility] [address] [place], [address] CO2 [Moles/Vol] 22.0 mmol/L Normal 21.0-32.0 [facility] Comment on above: Performed By: #### L 100.0500, L500.2500 #### [facility] [address] [place], [address] Creatinine [Mass/Vol] 1.25 mg/dL High 0.70-1.20 [facility] Comment on above: Performed By: #### L 100.0500, L500.2500 #### [facility] [address] [place], [address] GAP 11 Normal 5-15 [facility] Comment on above: Performed By: #### L 100.0500, L500.2500 #### [facility] [address] [place], [address] GFR/1.73 sq M.predicted among non-blacks MDRD (S/P/Bld) [Vol rate/Area] 48 mL/min/{1.73_m2} Low >60 [facility] Comment on above: Result Comment: mL/m in/1.73m2 CKD-EPI Creatinine Equation (2020) Performed By: #### L 100.0500, L500.2500 #### [facility] [address] [place], [address] Glucose [Mass/Vol] 97 mg/dL Normal 70-99 [facility] Comment on above: Performed By: #### L 100.0500, L500.2500 #### [facility] [address] [place], [address] Potassium [Moles/Vol] 4.6 mmol/L Normal 3.3-5.1 [facility] Comment on above: Performed By: #### L 100.0500, L500.2500 #### [facility] [address] [place], [address] Sodium [Moles/Vol] 139 mmol/L Normal 133-145 [facility] Comment on above: Performed By: #### L 100.0500, L500.2500 #### [facility] [address] [place], [address] Urea nitrogen [Mass/Vol] 22 mg/dL High 4-19 [facility] Comment on above: Performed By: #### L 100.0500, L500.2500 #### [facility] [address] [place], [address] [facility] Erythrocyte distribution width (RBC) [Ratio] 13.8 % Normal 11.6-14.6 [facility] Comment on above: Performed By: #### L 100.0500, L500.2500 #### [facility] [address] [place], [address] Hematocrit (Bld) [Volume fraction] 40.0 % Normal 37-47 [facility] Comment on above: Performed By: #### L 100.0500, L500.2500 #### [facility] [address] [place], [address] Hemoglobin (Bld) [Mass/Vol] 13.4 g/dL Normal 12.0-15.0 [facility] Comment on above: Performed By: #### L 100.0500, L500.2500 #### [facility] [address] [place], [address] MCH (RBC) [Entitic mass] 31.4 pg Normal 27.0-32.0 [facility] Comment on above: Performed By: #### L 100.0500, L500.2500 #### [facility] [address] [place], [address] MCHC (RBC) [Mass/Vol] 33.5 g/dL Normal 32-36 [facility] Comment on above: Performed By: #### L 100.0500, L500.2500 #### [facility] [address] [place], [address] MCV (RBC) [Entitic vol] 93.7 fL Normal 81-99 [facility] Comment on above: Performed By: #### L 100.0500, L500.2500 #### [facility] [address] [place], [address] Platelet mean volume (Bld) [Entitic vol] 9.6 fL Normal 6.2-12.0 [facility] Comment on above: Performed By: #### L 100.0500, L500.2500 #### [facility] [address] [place], [address] Platelets (Bld) [#/Vol] 358 10*3/uL Normal 150-450 [facility] Comment on above: Performed By: #### L 100.0500, L500.2500 #### [facility] [address] [place], [address] RBC (Bld) [#/Vol] 4.27 10*6/uL Normal 4.2-5.4 [facility] Comment on above: Performed By: #### L 100.0500, L500.2500 #### [facility] [address] [place], [address] RDW SD 47.0 fl High 35.1-43.9 [facility] Comment on above: Performed By: #### L 100.0500, L500.2500 #### [facility] [address] [place], [address] WBC (Bld) [#/Vol] 11.5 10*3/uL High 4.4-11.0 [facility] Comment on above: Performed By: #### L 100.0500, L500.2500 #### [facility] [address] [place], [address] Carbon dioxide, total [Moles /volume] in Central venous bloodOrdered By: Paige Johansen on 06-09-2025 CO2 [Moles/Vol] 22.0 mmol/L 21.0-32.0 [facility] Chloride assayOrdered By: Salbador Johansen on 06-09-2025 Chloride [Moles/Vol] 105 mmol/L 98-108 [facility] Erythrocyte distribution wid th ratioOrdered By: Paige Johansen on 06-09-2025 Erythrocyte distribution width (RBC) [Ratio] 13.8 % 11.6-14.6 [facility] Erythrocyte distribution wid th standard deviationOrdered By: Paige Johansen on 06-09-2025 Erythrocyte distribution width (RBC) [Ratio] 47.0 fl High 35.1-43.9 [facility] Glomerular filtration rate ( GFR) estimation/1.73 sq m using serum, plasma, or whole bOrdered By: Paige Johansen on 06-09-2025 GFR/1.73 sq M.predicted among non-blacks MDRD (S/P/Bld) [Vol rate/Area] 48 mL/min/{1.73_m2} Low >60 [facility] Comment on above: mL/min/1.73m2 CKD-EP I Creatinine Equation (2020) Hematocrit Auto (Bld) [Volum e fraction]Ordered By: Paige Johansen on 06-09-2025 Hematocrit (Bld) [Volume fraction] 40.0 % 37-47 [facility] Hemoglobin measurementOrdere d By: Paige Johansen on 06-09-2025 Hemoglobin (Bld) [Mass/Vol] 13.4 g/dL 12.0-15.0 [facility] Laboratory - Chemistry and C hemistry - challengeOrdered By: Paige Johansen on 06-09-2025 Bilirubin Ql (U) Negative [facility] Glucose Ql (U) Negative [facility] Ketones Ql (U) Negative [facility] pH (U) 5 [pH] [facility] Specific gravity (U) [Rel density] 1.015 [facility] Urobilinogen (U) [Mass/Vol] Negative [facility] Laboratory - Hematology and Cell countsOrdered By: Paige Johansen on 06-09-2025 Hemoglobin Ql (U) Negative [facility] - UrinalysisOrder ed By: Paige Johansen on 06-09-2025 Nitrite Ql (U) Negative [facility] Protein Ql (U) Negative [facility] MCV (mean corpuscular volume ) determinationOrdered By: Paige Johansen on 06-09-2025 MCV (RBC) [Entitic vol] 93.7 fL 81-99 [facility] MR/BMSOSCARon 06-09-2025 /ZAID [facility] [address], [address] [place] [address] OFFICE VISIT Date of Service: 06/09/25 MR#: [id number] Acct: [id number] Name: BRAXTON MARTINEZ Rep #: [id number] : 1960 Provider: Dr. Paige Otoole i, MD Age/Sex: 64/F Location: [facility] [place] Status: Signed with Addenda ADDENDUM by Dr. Paige Johansen MD on 06/15/25 at 0804 HPI Details: BRAXTON MICHELLE, is a 64 F who presents to the office today for Assessment and Plan Assessment and Plan (1) Kidney stones: Status: Acute (2) Hypercalcemia: Status: Acute (3) Stress incontinence: Status: Acute Orders: Orders POC UA Auto w/o Microscopy 06/09/25 N20.0 - Calculus of kidney Medications: New potassium citrate-citric acid 1,100-334 mg/5 mL 10 mL PO BIDWMEAL 473 mL 6RF Discontinued potassium citrate ER Discontinued Reason: Order Changed 15 mEq PO BID Addendum I have examined the patient and the H P has been reviewed. There are no clinical changes since date of exam. 06/15/25 0804 Date Paige Johansen MD cc: * Signed Intake Vital Signs 03/02/25 08:52 06/09/25 11:27 Height 5 ft 3 in 5 ft 3 in Weight: 130 lb BMI 23.0 BP 123/90 H Pulse 77 Intake Visit Reasons: PRE OP URINE C S SIGN CONSENT Chief Complaint: preoperative with urine and consent Director Of Medical Education Required: No Accompanied by: Self Is patient in pain?: No Allergies codeine Allergy (Verified 06/09/25 11:25) Itching Medications ???Medication ???Instructions ???Recorded ???Confirmed ???Type alendronate 70 mg tablet 70 mg PO QWEEK 02/27/25 06/09/25 H istory aspirin 81 mg tablet,delayed 81 mg PO QHS 02/27/25 06/09/25 His tory release (Adult Low Dose Aspirin) atorvastatin 10 mg tablet 10 mg PO QHS 02/27/25 06/09/25 His tory fluticasone 100 mcg-salmeterol 50 1 inh inhalation BID PRN PRN ASTH MA 02/27/25 06/09/25 History mcg/dose blistr powdr for inhalation meloxicam 7.5 mg tablet 7.5 mg PO DAILY PRN ARTHRITIS 02/0806/09/25 History omeprazole 20 mg capsule,delayed 20 mg PO DAILY PRN PRN GERD 06/09/25 History release ascorbic acid (vitamin C) 1,000 mg 1,000 mg PO DAILY 06/05/2506/09 History tablet,extended release (C Complex) atorvastatin 10 mg tablet (Lipitor) 10 mg PO DAILY 06/05/25 5 History biotin 10,000 mcg chewable tablet 10,000 mcg PO .qd 06/05/25 History (Hair, Skin and Nails (biotin)) bupropion HCl 150 mg 24 hr tablet, 150 mg PO .qd 06/05/25 06/09/25 History extended release nphlrhk-fzpbqkqhx-uggw tablet 1 tab PO .qd 06/05/25 06/09/25 His tory cholecalciferol (vitamin D3) 100 5,000 unit PO DAILY 06/05/2506/09 History mcg (4,000 unit) capsule cranberry 500 mg capsule 1,000 mg PO DAILY 06/05/25 5 History dicyclomine 10 mg capsule 10 mg PO Q8 PRN cramps 06/05/25 History multivitamin (Daily Value tablet) 1 tab PO DAILY 06/05/25 06/09/25 History omega-3 fatty acids 1,000 mg PO DAILY 06/05/25 5 History psyllium husk 0.4 gram capsule 0.4 g PO DAILY 06/05/25 06/09/25 H istory (Metamucil) tramadol 50 mg tablet 50 mg PO Q8 PRN arthritis 06/05/25 06/09/25 History potassium citrate-citric acid 10 ml PO BIDWMEAL #473 mL 06/09/25 06/09/25 Rx 1,100 mg-334 mg/5 mL oral solution Post menopausal: Yes Patient : No Have you fallen in the past year?: No PFSH Medical History H/O nephrolithotomy with removal of calculi H/O bone density study H/O mammogram Diverticular disease UTI (urinary tract infection) GERD (gastroesophageal reflux disease) Hyperlipidemia COPD (chronic obstructive pulmonary disease) IBS (irritable bowel syndrome) Arthritis Myalgia Osteoporosis Hydronephrosis Obstructed, uropathy Chronic kidney disease, stage 3b Bilateral renal cysts Intermittent palpitations Dysphagia Stroke Ureteral calculus Loss of hearing Wears contact lenses Wears dentures Post-menopausal Depression Anxiety History of steroid therapy Rheumatoid arthritis Bladder disease Easy bruising High cholesterol Migraine headache Degenerative disc disease at L5-S1 level DDD (degenerative disc disease), thoracic DDD (degenerative disc disease), cervical Injury of head and neck TIA (transient ischemic attack) Syncope History of diverticulitis History of IBS Gastric reflux Asthma Leg cramps Smoker Surgical History (Updated 06/05/25 @ 14:34 by Dyana Campbell) History of esophagogastroduodenoscopy (EGD) Hx of colonoscopy History of cystoscopy Hx of tubal ligation Family History (Updated 06/05/25 @ 14:36 by Dyana Campbell) Sister Hypertension Cancer Grandfather Heart disease Grandmother Diabetes Cancer U (more content not included)... Normal [facility] Mean corpuscular hemoglobin (MCH) determinationOrdered By: Paige Johansen on 06-09-2025 MCH (RBC) [Entitic mass] 31.4 pg 27.0-32.0 [facility] Mean corpuscular hemoglobin concentration (MCHC) determinationOrdered By: Paige Johansen on 06-09-2025 MCHC (RBC) [Mass/Vol] 33.5 g/dL 32-36 [facility] Mean platelet volume determi nationOrdered By: Paige Johansen on 06-09-2025 Platelet mean volume (Bld) [Entitic vol] 9.6 fL 6.2-12.0 [facility] No Panel InformationOrdered By: Paige Johansen on 06-09-2025 Urine Leukocytes Positive [facility] Platelet countOrdered By: Salbador Johansen on 06-09-2025 Platelets (Bld) [#/Vol] 358 10*3/uL 150-450 [facility] Potassium measurement (mass/ volume)Ordered By: Paige Johansen on 06-09-2025 Potassium (Unsp spec) [Mass/Vol] 4.6 mmol/L 3.3-5.1 [facility] RBC Auto (Bld) [#/Vol]Ordere d By: Paige Johansen on 06-09-2025 RBC (Bld) [#/Vol] 4.27 10*6/uL 4.2-5.4 [facility] Serum creatinine measurement (mass/volume)Ordered By: Paige Johansen on 06-09-2025 Creatinine [Mass/Vol] 1.25 mg/dL High 0.70-1.20 [facility] Serum glucose measurement (m ass/volume)Ordered By: Paige Johansen on 06-09-2025 Glucose [Mass/Vol] 97 mg/dL 70-99 [facility] Serum or plasma calcium rojelio urement (mass/volume)Ordered By: Paige Johansen on 06-09-2025 Calcium [Mass/Vol] 10.5 mg/dL 7.6-11.0 [facility] Serum or plasma urea nitroge n measurement (mass/volume)Ordered By: Paige Johansen on 06-09-2025 Urea nitrogen [Mass/Vol] 22 mg/dL High 4-19 [facility] Sodium levelOrdered By: Laila Johansen on 06-09-2025 Sodium [Moles/Vol] 139 mmol/L 133-145 [facility] White blood cell (WBC) count Ordered By: Paige Johansen on 06-09-2025 WBC (Bld) [#/Vol] 11.5 10*3/uL High 4.4-11.0 [facility] Abdomen Single Viewon 2024 Abdomen Single View [facility] [address] [place], [place] [address] Abdomen Single View MR#: [id number] Acct: [id number] Name: BRAXTON MARTINEZ Rep #: [id number] : 1960 F 64 From: Tomasz Christy MD PCP: GEOVANNA Kolb Status: REG CLI Study: Abdomen Single View Date of Exam: 03/28/25 Exam# [id number] Ordering Dr: Paige Johansen MD PROCEDURE: ABDOMEN SINGLE VIEW 03/28/2025 REASON FOR EXAM: KUB- KIDNEY STONE TECHNIQUE: Single view abdomen. 2 total images to include the abdomen and pelvis COMPARISON: CT abdomen and pelvis 02/14/2025 FINDINGS: Multiple calcifications are seen over the left renal shadow calcification of the upper pole of the right kidney consistent with nephrolithiasis. Bowel gas overlies portions of the mid and lower right renal shadow. No pelvic calcification concerning for stone disease. A mild S shaped thoracolumbar curvature. Visualized lung bases appear clear. No gaseous distention of bowel. RAD/Abdomen Single View IMPRESSION: Findings are suggestive of bilateral nephrolithiasis as above. No pelvic calcification concerning for stone disease. Reading Location: [id number] CC: BRANCH DIRECTORDelma Joyce; Dr. Paige Johansen MD Engine Head Repairer: Signed Normal [facility] L501.0895on 03-28-2025 Calcium [Mass/Vol] 10.4 mg/dL Normal 7.6-11.0 [facility] Comment on above: Performed By: #### L 501.0895 ####[facility] [address] [place], [address] Serum or plasma calcium rojelio urement (mass/volume)Ordered By: Paige Johansen on 03-28-2025 Calcium [Mass/Vol] 10.4 mg/dL 7.6-11.0 [facility] Calculi, Urinary w / Photoon 03-11-2025 2,8 Dihydroxyad TNP Normal . [facility] Comment on above: Order Comment: Comme nts: left ureteral calculus Performed By: #### L 3650.0100 ####[facility] [address] [place], [address] AMM ACID URATE TNP Normal . [facility] Comment on above: Order Comment: Comme nts: left ureteral calculus Performed By: #### L 3650.0100 ####[facility] [address] [place], [address] Bilirubin Ql (U) TNP Normal . [facility] Comment on above: Order Comment: Comme nts: left ureteral calculus Performed By: #### L 3650.0100 ####[facility] [address] [place], [address] CA BILIRUBINATE TNP Normal . [facility] Comment on above: Order Comment: Comme nts: left ureteral calculus Performed By: #### L 3650.0100 ####[facility] [address] [place], [address] CA CARBONATE TNP Normal . [facility] Comment on above: Order Comment: Comme nts: left ureteral calculus Performed By: #### L 3650.0100 ####[facility] [address] [place], [address] CA HYDROG PHOS TNP Normal . [facility] Comment on above: Order Comment: Comme nts: left ureteral calculus Performed By: #### L 3650.0100 ####[facility] [address], [address] CA OXAL DIHYDR 90 Normal . [facility] Comment on above: Order Comment: Comme nts: left ureteral calculus Result Comment: Perf ormed at: [facility] [address] [id number] [employer] Car: Oumar [place] PhD, Phone: [phone] Performed By: #### L 3650.0100 ####[facility] [address] [place], [address] CA OXAL MONOHYD 10 Normal . [facility] Comment on above: Order Comment: Comme nts: left ureteral calculus Performed By: #### L 3649.0100 ####[facility] [address] [place], [address] CA Palmitate TNP Normal . [facility] Comment on above: Order Comment: Comme nts: left ureteral calculus Performed By: #### L 3650.0100 ####[facility] [address] [place], [address] CA PHOS (hydro) TNP Normal . [facility] Comment on above: Order Comment: Comme nts: left ureteral calculus Performed By: #### L 365.0100 ####[facility] [address] [place], [address] CA PHOSPHATE TNP Normal . [facility] Comment on above: Order Comment: Comme nts: left ureteral calculus Performed By: #### L 365.0100 ####[facility] [address] [place], [address] CA Stearate TNP Normal . [facility] Comment on above: Order Comment: Comme nts: left ureteral calculus Performed By: #### L 0.0100 ####[facility] [address] [place], [address] CHOLESTEROL TNP Normal . [facility] Comment on above: Order Comment: Comme nts: left ureteral calculus Performed By: #### L 0.0100 ####[facility] [address] [place], [address] Color (U) Brewer Normal . [facility] Comment on above: Order Comment: Comme nts: left ureteral calculus Performed By: #### L 0.0100 ####[facility] [address] [place], [address] COMMENT TNP Normal . [facility] Comment on above: Order Comment: Comme nts: left ureteral calculus Performed By: #### L 3649.0100 ####[facility] [address] [place], [address] CYSTINE TNP Normal . [facility] Comment on above: Order Comment: Comme nts: left ureteral calculus Performed By: #### L 3649.0100 ####[facility] [address] [place], [address] Drug/Metabolite TNP Normal . [facility] Comment on above: Order Comment: Comme nts: left ureteral calculus Performed By: #### L 3649.0100 ####[facility] [address] [place], [address] MAG YOVANY PHOS TNP Normal . [facility] Comment on above: Order Comment: Comme nts: left ureteral calculus Performed By: #### L 3649.0100 ####[facility] [address] [place], [address] NA ACID URATE TNP Normal . [facility] Comment on above: Order Comment: Comme nts: left ureteral calculus Performed By: #### L 3650.0100 ####[facility] [address] [place], [address] NEWBERYITE TNP Normal . [facility] Comment on above: Order Comment: Comme nts: left ureteral calculus Performed By: #### L 0.0100 ####[facility] [address] [place], [address] Other Component TNP Normal . [facility] Comment on above: Order Comment: Comme nts: left ureteral calculus Performed By: #### L 0.0100 ####[facility] [address] [place], [address] SIZE 3x3 Normal . [facility] Comment on above: Order Comment: Comme nts: left ureteral calculus Result Comment: Mult iple pieces received. Dimensions of the largest piece reported. Performed By: #### L 3650.0100 ####[facility] [address] [place], [address] SOURCE Comment Normal . [facility] Comment on above: Order Comment: Comme nts: left ureteral calculus Result Comment: Left Ureter Performed By: #### L 3650.0100 ####[facility] [address] [place], [address] TRIAMTERENE TNP Normal . [facility] Comment on above: Order Comment: Comme nts: left ureteral calculus Performed By: #### L 3650.0100 ####[facility] [address] [place], [address] URIC ACID TNP Normal . [facility] Comment on above: Order Comment: Comme nts: left ureteral calculus Performed By: #### L 3650.0100 ####[facility] [address] [place], [address] URIC ACID DIHYD TNP Normal . [facility] Comment on above: Order Comment: Comme nts: left ureteral calculus Performed By: #### L 3650.0100 ####[facility] [address] [place], [address] WEIGHT 31 mg Normal . [facility] Comment on above: Order Comment: Comme nts: left ureteral calculus Performed By: #### L 3650.0100 ####[facility] [address] [place], [address] XANTHINE TNP Normal . [facility] Comment on above: Order Comment: Comme nts: left ureteral calculus Performed By: #### L 3650.0100 ####[facility] [address] [place], [address] Ammonium urate crystals dete ction in stone by infrared spectroscopyOrdered By: Paige Johansen on 03-02-2025 Ammonium urate crystals Infrared spectroscopy Ql (Stone) [facility] [place] [facility] Comment on above: Test not performed Calcium hydrogen phosphate c rystals detection in stone by infrared spectroscopyOrdered By: Paige Johansen on 03-02-2025 Calcium hydrogen phosphate crystals Infrared spectroscopy Ql (Stone) [facility] [place] [facility] Comment on above: Test not performed Calcium oxalate dihydrate cr ystals detection in stone by infrared spectroscopyOrdered By: Paige Johansen on 03-02-2025 Calcium oxalate dihydrate crystals Infrared spectroscopy Ql (Stone) 90 % . [facility] Comment on above: Performed at: [address] [id number] Director: Oumar [place] PhD, Phone: [phone] Color of specimen determinat ionOrdered By: Paige Johansen on 03-02-2025 Color (Unsp spec) [place] . [facility] Cystine measurementOrdered B y: Paige Johansen on 03-02-2025 Cystine (Unsp spec) [Moles/Vol] [facility] [place] [facility] Comment on above: Test not performed Determination of volume of c alculusOrdered By: Paige Johansen on 03-02-2025 Size (Stone) [Entitic vol] 3x3 mm . [facility] Comment on above: Multiple pieces rece ived. Dimensions of the largest piecereported. Discharge Instructionon 02-08 Discharge Instruction [facility] Medical Records Department [address] [place] [address] Instructions for Home/Discharge Instructions 03/02/25 0933 MR#: [id number] Acct: [id number] Name: BRAXTON MARTINEZ Rep #: [id number] : 1960 64 From: Paige Johansen MD PCP: Julee Joyce NP-C Status:REG [facility] Discharge Instructions Diet Discharge Diet: No restrictions Activity Discharge Activity: Return to Normal Activity Dressing / Incision Call your doctor if you observe: Fever of 101 or Higher, Inability to urinate and Inability to have a bowel movement Follow Up Care Please Follow Up With: Paige Johansen MD When: The office will call the patient to make follow-up arrangements Test Results: Test results from this visit will be discussed in further detail at your follow-up appointment, if applicable. Discharge Plan Admission Attending Provider: Paige Johansen Primary Care Provider: Julee Joyce NP Instructions Print Language: Martiniquais Discharge Orders/Prescriptions Prescriptions: New ondansetron 8 mg tablet,disintegrating 8 mg PO Q8H PRN (Reason: nausea and vomiting) Qty: 10 0RF oxycodone-acetaminophen 5-325 mg tablet 1 tab PO Q8H PRN (Reason: pain) 3 Days Qty: 10 0RF cephalexin 500 mg capsule 500 mg PO Q12 3 Days Qty: 6 0RF phenazopyridine 200 mg tablet 200 mg PO TID PRN (Reason: pain) Qty: 30 3RF Continued buspirone 5 MG tablet 5 mg PO BID ondansetron 4 MG tablet 4 mg PO Q8H PRN PRN (Reason: Nausea) Qty: 10 0RF aspirin [Adult Low Dose Aspirin] 81 mg tablet,delayed release (DR/EC) 81 mg PO QHS tamsulosin 0.4 MG capsule 0.4 mg PO QHS omeprazole 20 mg capsule,delayed release(DR/EC) 20 mg PO DAILY PRN PRN (Reason: GERD) fluticasone propion-salmeterol 100-50 mcg/dose blister with device 1 inh inhalation BID PRN PRN (Reason: ASTHMA) bupropion HCl 150 mg tablet sustained-release 12 hr 150 mg PO BID atorvastatin 10 mg tablet 10 mg PO QHS alendronate 70 mg tablet 70 mg PO QWEEK meloxicam 7.5 mg tablet 7.5 mg PO DAILY PRN (Reason: ARTHRITIS) Referrals / Follow Up: Julee Joyce NP, BRANCH DIRECTOR-C [Primary Care Provider] - Disposition Disposition (needs filled in before D/C Order can be placed): Home, Self Care 03/02/25 1033 Paige Johansen MD CC: BRANCH DIRECTOR-C Julee Joyce Signed Normal [facility] Laboratory - Miscellaneous t estsOrdered By: Paige Johansen on 03-02-2025 Service comment (Unsp spec) [Interp] TNP [facility] Comment on above: Test not performed MR/POSTOP.ANEon 03-02-2025 MR/POSTOP.[facility] Medical Records Department [address] [place] [address] Anesthesia Postop Eval I 03/02/25 1015 MR#: [id number] Acct: [id number] Name: MICHELLEBRAXTON B Rep #: [id number] : 1960 64 From: Juice Melara CRNA PCP: GEOVANNA Kolb Status:REG SDC Y Race: C Location: [place] [address] Anesthesia: Postop Eval I Current Vital Signs Temperature: 97.9 F Pulse Rate: 77 Blood Pressure: 137/103 Respiratory Rate: 20 Pulse Ox: 97 Oxygen Delivery Method: Room Air Assessment Airway patent: Yes Spontaneous unlabored respirations: Yes Mental status: Awake and Calm nausea: Yes Vomiting: No Anesthesia Complication: No Fluid Hydration Crystalloid volume administer (ml): 600 Total IV fluid infused: 600 Progress Note Anesthesia document: Postop Eval 1 completed: Yes 03/02/25 1016 Date Juice Melara CRNA Cosigner Signature: Date CC: Signed Normal [facility] MR/[id number] 03-02-2025 MR/POSTOPAN2 [facility] Medical Records Department [address] [place] [address] Anesthesia Postop Eval II 03/02/25 1424 MR#: [id number] Acct: [id number] Name: BRAXTON MARTINEZ Rep #: [id number] : 1960 64 From: Gisel Wilson PCP: GEOVANNA Kolb Status:DEP [facility] Y Race: C Location: [facility] Anesthesia Postop Eval I Sum Postop Eval Completion status Anesthesia document: Postop Eval 1 completed: Yes Anesthesia Postop Eval I Summary Anesthesia Postop Eval I Summary: Anesthesia Postop Eval I: Assessment Summary Airway patent Yes 03/02/25 10:16 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.TNES Spontaneous unlabored Yes 03/02/25 10:16 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.TNES respirations Mental status Awake,Calm 03/02/25 10:16 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.TNES nausea Yes 03/02/25 10:16 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.TNES Vomiting No 03/02/25 10:16 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.TNES Anesthesia Postop Eval I: Fluid Summary Crystalloid volume administer 600 03/02/25 10:16 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.TNES (ml) Colloids volume administered ( ml) Blood Product volume administered (ml) Total IV fluid infused 600 03/02/25 10:16 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.TNES Anesthesia Postop Eval I: Summary Notes Anesthesia Complication No 03/02/25 10:16 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.TNES Anesthesia Complication Comment: Post-operative progress note Anesthesia: Postop Eval II Evaluation Mental status: Awake and Calm Pain Level: 0 nausea: No Vomiting: No Complications Anesthesia Complication: No 03/02/25 142 Gisel Aliaslime Wangigner Signature: Date CC: Signed Normal [facility] Measurement of weight of sto neOrdered By: Paige Johansen on 03-02-2025 Weight (Stone) 31 mg . [facility] Newberyite crystals detectio n in stone by infrared spectroscopyOrdered By: Paige Johansen on 03-02-2025 Newberyite crystals Infrared spectroscopy Ql (Stone) [facility] [place] [facility] Comment on above: Test not performed No Panel InformationOrdered By: Paige Johansen on 03-02-2025 Stone 2,8 Dihydroxyadenine [facility] [place] [facility] Comment on above: Test not performed Stone Bilirubin [facility] [place] [facility] Comment on above: Test not performed Stone Calcium Bilirubinate [facility] [place] [facility] Comment on above: Test not performed Stone Calcium Carbonate [facility] [place] [facility] Comment on above: Test not performed Stone Calcium Hydroxyl-Phosphate [facility] [place] [facility] Comment on above: Test not performed Stone Calcium Oxalate Monohydrate 10 % . [facility] Stone Calcium Palmitate [facility] [place] [facility] Comment on above: Test not performed Stone Calcium Phosphate Carbonate [facility] [place] [facility] Comment on above: Test not performed Stone Calcium Stearate [facility] Comment on above: Test not performed Stone Drug or Metabolite [facility] [place] [facility] Comment on above: Test not performed Stone Other Component(s) [facility] [place] [facility] Comment on above: Test not performed Stone Xanthine [facility] Comment on above: Test not performed Operative Reporton Operative Report [facility] Medical Records Department [address] [place] [address] Operative Report 03/02/25 0932 MR#: [id number] Acct: [id number] Name: BRAXTON MARTINEZ Rep #: [id number] : 1960 64 From: Paige Johansen MD PCP: GEOVANNA Kolb Status:[facility] Location: [place] [address] Problems Associated Problem List Diagnoses (1) Ureteral calculus: Operative Report (Standard) Operative Information Date of Procedure: 03/02/25 Pre-Operative Diagnosis: Left ureteral calculus Post-Operative Diagnosis: Same Surgery/Procedure Performed: Cystoscopy, left ureteroscopy, thulium laser lithotripsy, stone basket extraction, left ureteral stent insertion lawn specialist: No Type of Anesthesia: General RN Documented Start/Stop Times: Operation Date: 03/02/25 09:35 Case Time Into Pre-Op 03/02/25 08:11 Anesthesia Start 03/02/25 09:36 Into Room 03/02/25 09:36 Out of Pre-Op 03/02/25 09:36 Procedure Start 03/02/25 09:49 Procedure End 03/02/25 10:04 Anesthesia End 03/02/25 10:11 Out of Room 03/02/25 10:11 Into Recovery 03/02/25 10:13 Procedure Start Time: 09:49 Procedure Stop Time: 10:04 Select all DRAINS/GRAFTS/IMPLANTS that apply: Drains Drain details: 4.5Fr x 24cm JJ stent Estimated Blood Loss: <5cc Specimen collected: Yes Description of specimen(s) removed: Ureteral stone fragments Description of surgery: Patient is a 64-year-old female with an obstructing left distal ureteral calculus who presents for surgical intervention. Informed consent was obtained. She was taken to the operating room and placed on the operating room table. Anesthesia monitored the head, neck, airway, IV access and vital signs throughout the case. Once anesthesia was appropriate ministered, she was placed into dorsolithotomy position was prepped and draped in usual sterile fashion. The cystoscope was inserted through the urethra under direct visualization into the urinary bladder. The bladder was visualized in its entirety revealing no evidence of mass, erythema, ulceration or foreign body. The left ureteral orifice was identified and intubated with a 0.035 Glidewire seen within the renal pelvis on fluoroscopy. The semirigid ureteroscope was then utilized to gain access to the distal ureter and the stone was almost immediately identified. Using the 200 ???m laser fiber, the stone was broken into multiple small pieces which were basket retrieved using an N-fernie basket. Once all of the fragments were retrieved from the ureter, the safety wire was utilized for placement of a 4.5 Paraguayan by 24 cm JJ stent with good positioning in the renal pelvis as well as the urinary bladder. The bladder was then emptied and the cystoscope was removed. She was awakened and taken to the recovery room in good condition. There were no complications during this procedure. Surgical Findings: left distal stone, larger than measured on CT imaging Complications Complications: No Admit VTE Documentation VTE Present on Admission: Yes VTE Mechan Device Prophylaxis: SCD's Reason prophylaxis not ordered: Treatment Not Indicated 03/02/25 1035 Cosigner Signature (if applicable): CC: GEOVANNA Joyce; Dr. Paige Johansen MD Signed Normal [facility] Origin of StoneOrdered By: Sukhi Johansen on 03-02-2025 Origin Nom (Stone) Comment . [facility] Comment on above: Left Ureter Sodium urate crystals detect ion in stone by infrared spectroscopyOrdered By: Paige Johansen on 03-02-2025 Sodium urate crystals Infrared spectroscopy Ql (Stone) TNP [facility] Comment on above: Test not performed Surgery Specimen Level Ion 0 03-02-2025 Surgery Specimen Level I Patient Age/Sex Location Account Attending Physician BRAXTON MARTINEZ 64/F [facility] [id number] Dr. Paige Johansen MD Specimen: [id number] Received: 03/02/25 Status: ANA ROSA Monreal Num: [id number] Spec Type: Calculi Subm Dr: Dr. Paige Johansen MD HEADER OPERATION: Left ureteroscopy, laser litho, stone basket extraction PRE-OP DIAGNOSIS: Renal and ureteric calculus, abdominal pain, stress incontinence TISSUE SUBMITTED: A- Left ureteral calculus GROSS DIAGNOSIS A. Left ureter, calculus, extraction: * Urolithiasis (gross examination only). * Chemical analysis pending (to be reported separately). GROSS DESCRIPTION A. Received fresh in a container labeled with the patient's name, date of , and "left ureteral calculus" is a 0.6 x 0.5 x 0.4 cm irregular and firm stone. No soft tissue is received; no sections are submitted for microscopic analysis. The specimen is entirely submitted to a urolithiasis lab. [facility] 03/06/2025 CPT:67411 Patient Age/Sex Location Account Attending Physician BRAXTON MARTINEZ 64/F [facility] [id number] Dr. Paige Johansen MD Signed (signature on file) Dr. Nora Roth MD 03/06/25 0926 Normal [facility] Comment on above: Performed By: #### P GEOVANI ####[facility] [address] [place] [address], [id number] Triamterene crystals detecti on in stone by infrared spectroscopyOrdered By: Paige Johansen on 03-02-2025 Triamterene crystals Infrared spectroscopy Ql (Stone) [facility] Comment on above: Test not performed Triple phosphate crystals de tection in stone by infrared spectroscopyOrdered By: Paige Johansen on 03-02-2025 Triple phosphate crystals Infrared spectroscopy Ql (Stone) [facility] Comment on above: Test not performed Uric acid crystals detection in stone by infrared spectroscopyOrdered By: Paige Johansen on 03-02-2025 Urate crystals Infrared spectroscopy Ql (Stone) [facility] Comment on above: Test not performed Uric acid dihydrate crystals detection in stone by infrared spectroscopyOrdered By: Paige Johansen on 03-02-2025 Urate dihydrate crystals Infrared spectroscopy Ql (Stone) [facility] Comment on above: Test not performed Abdomen/Pelvis WITH Contrast on 02-14-2025 Abdomen/Pelvis WITH Contrast [facility] Imaging Services [address] [place], [place] [address] Abdomen/Pelvis WITH Contrast MR#: [id number] Acct: [id number] Name: BRAXTON MARTINEZ Rep #: [id number] : 1960 F 64 From: Zacarias Borges MD PCP: GEOVANNA Kolb Status: REG CLI Study: Abdomen/Pelvis WITH Contrast Date of Exam: 07/03 Exam# [id number] Ordering Dr: Julee Joyce NP BRANCH DIRECTOR-C PROCEDURE: ABDOMEN/PELVIS WITH CONTRAST 02/14/2025 REASON FOR EXAM: HIGH SERUM VITAMIN, RENAL CARCINOMA SUSPECTED TECHNIQUE: Contiguous axial scans of 3.75 mm slice thicknesses. Sagittal and coronal reconstruction images were obtained. One or more dose reduction techniques were used (e.g., automated exposure control, adjustment of mA and/or kv according to patient size, use of iterative reconstruction technique). PATIENT PREPARATION: Per protocol ORAL CONTRAST TYPE: Given CONTRAST: 300 Isovue-300 VOLUME: 93 mL RADIATION DOSE SUMMARY: CTDlvol: 25.89 mGy DLP: 626.29 mGycm COMPARISON: No relevant prior. FINDINGS: Lung bases: Unremarkable. Liver: Normal in size and attenuation. No masses are demonstrated. Gallbladder: Unremarkable. Spleen: Unremarkable. Pancreas: No masses. Normal parenchymal attenuation. No ductal dilatation. Adrenals: Left adrenal gland thickening. Small left adrenal gland nodule measuring 10 mm, axial image 31. Kidneys: Bilateral nonobstructing nephrolithiasis. Multiple calcifications in the upper pole of the left kidney, largest measuring a approximately 6 mm. Multiple calcifications scattered throughout the left kidney, too numerous to count. Multiple calcifications are noted in the left upper pole calyx, largest measuring approximately 6 mm. Marked left hydroureteronephrosis down to the ureterovesical junction. Several calcifications are noted obstructing the distal left ureter on axial image number 92, coronal image 68 measuring approximately 5 mm. Multiple cysts in both kidneys, largest on the right measuring 9 mm, largest on the left measuring 1.8 x 1.4 cm. Bladder: No masses or calcifications. Reproductive Organs: Unremarkable. Bowel: Unremarkable. Appendix: Unremarkable. Lymph nodes: No suspicious adenopathy. Vasculature: Scattered atherosclerotic calcified plaques in the aorta and iliac arteries. Mild eccentric thrombus in the aorta and iliac arteries. Peritoneum / Retroperitoneum: Unremarkable. Abdominal wall: Unremarkable. Bones: Mild multilevel spondylosis. Mild degenerative disc disease at T10 through T12. CT/Abdomen/Pelvis WITH Contrast IMPRESSION: 1. Findings of an obstructive uropathy on the left with obstructing calculi at the left ureterovesical junction and marked proximal hydroureteronephrosis. 2. Bilateral nonobstructing nephrolithiasis. 3. Bilateral renal cysts. 4. No definite signs of renal cell carcinoma. 5. Left adrenal gland thickening in a small nodule most likely adrenal adenoma. 6. Other nonacute findings detailed above. Reading Location: [place] [address] CC: GEOVANNA Joyce Engine Head Repairer: Signed Normal [facility] Low Dose CT Lung Screeningon 02-14-[address] Lung Screening [facility] [address] [place] [id number] Lung Screening MR#: [id number] Acct: [id number] Name: BRAXTON MARTINEZ Rep #: [id number] : 1960 F 64 From: Elliot Delgado i, MD PCP: GEOVANNA Kolb Status: [facility] CL Study: Low Dose CT Lung Screening Date of Exam: 02/14 Exam# [id number] Ordering Dr: Julee Jocye NP PROCEDURE: 02/14/2025 REASON FOR EXAM: SCREENING FOR LUNG CANCER TECHNIQUE: Low Dose CT Lung screening without contrast. Coronal and Sagittal reconstruction series were provided. One or more dose reduction techniques were used (e.g., Automated exposure control, adjustment of the mA and/or kV according to patient size, use of iterative reconstruction technique). REFERENCE LINK: [employer] Lung-RADS RADIATION DOSE SUMMARY: CTDlvol: 2.01 mGy DLP: 62.68 mGycm COMPARISON: None. FINDINGS: PULMONARY NODULES: (Only nodules >3mm are reported) Nodules described below are on series unless otherwise specified. Pulmonary Nodules: No suspicious pulmonary nodules. Hardware:None. Lymph Nodes:Shotty nonspecific lymph nodes seen within the mediastinum the largest measures up to 1.3 cm near the left hilum (image 80/224) Heart and Vasculature:Atheromatous calcification seen within the thoracic aorta. Coronary Artery Calcifications: None to minimal. Lungs and Airways: Subpleural bleb seen within the right upper lobe (image 56/224). Streaky changes/scarring seen within the right middle lobe (image 159/224). There are dependent changes at the lung bases. There are patchy subpleural infiltrates within the left upper lobe (image 82/224). Pleura:No pleural effusion. Upper Abdomen:Left hydronephrosis partially visualized. There several left-sided renal stones. Contrast is seen within the visualized colonic loops. Please see CT abdomen. Bones:Degenerative changes within the spine. CT/Low Dose CT Lung Screening IMPRESSION: Subpleural ground-glass changes are nonspecific. Lung-RADS Category: 2 Other Significant Findings: Left hydronephrosis, renal stones. Please see CT abdomen/pelvis, which is separately dictated. Reading Location: [id number] CC: GEOVANNA Joyce Engine Head Repairer: Signed Normal [facility] URINE CULTURE [CCL]on 2024 Bacteria identified Cx Nom (U) URCUL See Results Below See Below CULTURE, URINE KLEBSIELLA PNEUMONIAE 50,000-<100,000 CFU/ml Klebsiella pneumoniae ORGANISM: KLEBSIELLA PNEUMONIAE ANTIBIOTIC UMBERTO DILUTN UMBERTO INTERP Ampicillin >=32 Resistant Cefazolin <=4 Susceptible For uncomplicated urinary tract infections, cefazolin results can be used to pre Ceftriaxone <=1 Susceptible Cefepime <=1 Susceptible Ertapenem <=0.5 Susceptible Meropenem <=0.25 Susceptible Ampicillin/Sulbact 4 Susceptible Piperacillin/Tazobac <=4 Susceptible Gentamicin <=1 Susceptible Tobramycin <=1 Susceptible Trimeth sulfameth <=20 Susceptible Ciprofloxacin <=0.25 Susceptible Nitrofurantoin 32 Susceptible This test was developed and its performance characteristics determined by the [facility]'s [facility] [place] ([facility]). It has not been cleared or approved by the FDA. [facility] is regulated under CLIA as qualified to perform high-complexity testing. This test is used for clinical purposes. It should not be regarded as investigational or for research. SOURCE: Urine (Nonspecific) [facility] [employer] [address] [place] [address] Deniz Aguilar III, M.D. [id number] SEND TO IC NO Normal [facility] Comment on above: Performed By: #### 2 [address] #### [facility],[address] [place] [address] Bacteria Ur Culton 5 Bacteria identified Cx Nom (U) ORGANISM ID: 1 50,000-<100,000 CFU/ml Klebsiella pneumoniae ORGANISM ID: 1 (KLEBSIELLA PNEUMONIAE) --------- ANTIBIOTIC INTERPRETATION UMBERTO STATUS REFERENCE RANGE --------- Ampicillin R >=32 F Susceptible <=8 , Intermediate >8 , Resistant >16 Cefazolin S <=4 F Susceptible 0-16 , Intermediate <0 or >16 , Resistant >16 For uncomplicated urinary tract infections, cefazolin results can be used to predict susceptibility or resistance to cephalexin. Ceftriaxone S <=1 F Susceptible <=1 , Intermediate >1 , Resistant >=4 Cefepime S <=1 F Susceptible <=2 , Susceptible-Dose Dependent >2 , Resistant >=16 Ertapenem S <=0.5 F Susceptible <=0.5 , Intermediate >.5 , Resistant >1 Meropenem S <=0.25 F Susceptible <=1 , Intermediate >1 , Resistant >2 Ampicillin/Sulbact S 4 F Susceptible <=8 , Intermediate >8 , Resistant >16 Piperacillin/Tazobac S <=4 F Susceptible <16 , Susceptible-Dose Dependent >=16 , Resistant >=32 Gentamicin S <=1 F Susceptible <=2 , Intermediate >2 , Resistant >=8 Tobramycin S <=1 F Susceptible <4 , Intermediate >=4 , Resistant >=8 Trimeth sulfameth S <=20 F Susceptible <=40 , Resistant >40 Ciprofloxacin S <=0.25 F Susceptible <0.5 , Intermediate >=.5 , Resistant >=1 Nitrofurantoin S 32 F Susceptible <=32 , Intermediate >32 , Resistant >64 Abnormal [facility] Comment on above: Performed By: #### 6 30-4 #### [facility] CLIA [id number] [address] [place] [address] STATES OF [facility] CBC + DIFFon 01-25-2025 Baso # 0.04 x10EE3/UL Normal 0.00 - 0.10 [facility] Comment on above: Performed By: #### 2 10442 #### [facility],[address] [place] [address] Basophils/100 WBC (Bld) 0.4 % Normal 0.0 - 2.0 [facility] Comment on above: Performed By: #### 2 69888 #### [facility],[address] [place] [address] CBC + DIFF Normal [facility] Comment on above: Result Comment: CBC- COMPLETE BLOOD COUNT Performed By: #### 2 83422 #### [facility],[address] [place] [address] EO # 0.21 x10EE3/UL Normal 0.00 - 0.50 [facility] Comment on above: Performed By: #### 2 21271 #### [facility],[address] [place] [address] Eosinophils/100 WBC (Bld) 2.4 % Normal 0.0 - 7.0 [facility] Comment on above: Performed By: #### 2 39132 #### [facility],[address] [place], [place] [id number] Erythrocyte distribution width (RBC) [Ratio] 13.1 % Normal 12.0 - 15.6 [facility] Comment on above: Performed By: #### 2 41654 #### [facility],[address] [place], [place] [id number] Hematocrit (Bld) [Volume fraction] 37.9 % Normal 34.0 - 46.0 [facility] Comment on above: Performed By: #### 2 78467 #### [facility],[address] [place] [address] Hemoglobin (Bld) [Mass/Vol] 13.0 g/dL Normal 12.0 - 16.0 [facility] Comment on above: Performed By: #### 2 10318 #### [facility],[address] [place] [address] Lymph # 3.44 x10EE3/UL High 0.80 - 2.80 [facility] Comment on above: Performed By: #### 2 55643 #### [facility],[address] [place] [address]68 Lymphocytes/100 WBC (Bld) 39.1 % Normal 20.0 - 45.0 [facility] Comment on above: Performed By: #### 2 56397 #### [facility],[address] [place], [place] [phone] MANUAL DIFF N/A Normal [facility] Comment on above: Performed By: #### 2 54086 #### [facility],[address] [place] [address] 24010 MCH (RBC) [Entitic mass] 32 pg Normal 27 - 33 [facility] Comment on above: Performed By: #### 2 76246 #### [facility],[address] [place] [address]18 MCHC 34 X10 3 Normal 32 - 36 [facility] Comment on above: Performed By: #### 2 80195 #### [facility],[address] [place] [address] 94407 MCV (RBC) [Entitic vol] 94 fL Normal 80 - 99 [facility] Comment on above: Performed By: #### 2 36698 #### [facility],[address] [place] [address] 87369 Piute # 0.68 x10EE3/UL Normal 0.20 - 1.00 [facility] Comment on above: Performed By: #### 2 44521 #### [facility],[address] [place] [address] 02393 MONOS % 7.7 % Normal 0.0 - 10.0 [facility] Comment on above: Performed By: #### 2 10856 #### [facility],[address] [place], [place] [address] Morphology Peter (Bld) [Interp] N/A Normal [facility] Comment on above: Performed By: #### 2 41632 #### [facility],[address] [place] [address] Neut # 4.42 x10EE3/UL Normal 1.50 - 7.10 [facility] Comment on above: Performed By: #### 2 59915 #### [facility],[address] [place] [address] 5[address]24 Neutrophils/100 WBC (Bld) 50.3 % Normal 46.0 - 76.0 [facility] Comment on above: Performed By: #### 2 05254 #### [facility],[address] [place], [place] [address] PLATELET 336 x10EE3/UL Normal 150 - 450 [facility] Comment on above: Performed By: #### 2 76495 #### [facility],[address] [place] [address] 69723 Platelet mean volume (Bld) [Entitic vol] 8.8 fL Normal 6.6 - 10.5 [facility] Comment on above: Result Comment: AUTO MATED DIFFERENTIAL Performed By: #### 2 21888 #### [facility],[address] [place] [address] 58969 RBC 4.02 x 10EE6/UL Low 4.10 - 5.30 [facility] Comment on above: Performed By: #### 2 89996 #### [facility],[address] [place] [address] 92878 WBC 8.8 x 10EE3/UL Normal 4.5 - 10.8 [facility] Comment on above: Performed By: #### 2 64944 #### [facility],[address] [place] [address] 89361 CMP with eGFRon 01-25-2025 AGE 64 years Normal [facility] Comment on above: Performed By: #### 2 01253 #### [facility],[address] [place] [address] 16861 Albumin [Mass/Vol] 3.7 g/dL Normal 3.4 - 5.0 [facility] Comment on above: Performed By: #### 2 34227 #### [facility],[address] [place] [address]114 Albumin/Globulin [Mass ratio] 1.3 {ratio} Normal 0.9 - 1.6 [facility] Comment on above: Performed By: #### 2 65709 #### [facility],[address] [place] [address] 68540 ALK PHOS 78 U/L Normal 46 - 116 [facility] Comment on above: Performed By: #### 2 68412 #### [facility],[address] [place] [address] 93462 ALT [Catalytic activity/Vol] 18 U/L Normal 16 - 63 [facility] Comment on above: Performed By: #### 2 59094 #### [facility],[address] [place] [address] 96569 Anion gap [Moles/Vol] 12 mmol/L Normal 10 - 20 [facility] Comment on above: Performed By: #### 2 56963 #### [facility],[address] [place] [address] 39133 AST [Catalytic activity/Vol] 16 U/L Normal 13 - 39 [facility] Comment on above: Performed By: #### 2 74921 #### [facility],[address] [place] [address] 58302 B/C RATIO 14 ratio Normal 0 - 30 [facility] Comment on above: Performed By: #### 2 44570 #### [facility],[address] [place] [address] 90502 Bilirubin [Mass/Vol] 0.2 mg/dL Normal 0.2 - 1.0 [facility] Comment on above: Performed By: #### 2 54138 #### [facility],[address] [place] [address] 40595 Calcium [Mass/Vol] 9.2 mg/dL Normal 8.5 - 10.1 [facility] Comment on above: Performed By: #### 2 19294 #### [facility],[address] [place] [address] 97316 Chloride [Moles/Vol] 105 mmol/L Normal 98 - 107 [facility] Comment on above: Performed By: #### 2 42657 #### [facility],[address] [place] [address] 03017 CMP with eGFR Normal [facility] Comment on above: Result Comment: COMP REHENSIVE METABOLIC PANEL Performed By: #### 2 55816 #### [facility],[address] [place] [address] 11936 CO2 [Moles/Vol] 25.8 mmol/L Normal 21.0 - 32.0 [facility] Comment on above: Performed By: #### 2 23563 #### [facility],[address] [place] [address] 64647 Creatinine [Mass/Vol] 1.53 mg/dL High 0.55 - 1.02 [facility] Comment on above: Performed By: #### 2 04050 #### [facility],[address] [place] [address] 43920 eGFR 34 ML/MINUTE Low 60 - 999 [facility] Comment on above: Performed By: #### 2 60271 #### [address] [address] eGFR(AA) 41 ML/MINUTE Low 60 - 999 [facility] Comment on above: Result Comment: ACCO RDING TO THE NATIONAL KIDNEY DISEASE EDUCATION PROGRAM(NKDE), A NORMAL eGFR IS A VALUE GREATER THAN OR EQUAL TO 60 ML/MIN/1.73 SQ METERS. CHRONIC KIDNEY DISEASE: <60mL/MIN/1.73 SQ METERS KIDNEY FAILURE: <15mL/MIN/1.73 SQ METERS THIS TEST SHOULD ONLY BE USED FOR PATIENTS 18 YEARS OF AGE AND OLDER. Performed By: #### 2 29724 #### [address] [address] Globulin (S) [Mass/Vol] 2.9 g/dL Normal 1.5 - 3.8 [facility] Comment on above: Performed By: #### 2 08978 #### [address] [address] Glucose [Mass/Vol] 93 mg/dL Normal 74 - 106 [facility] Comment on above: Performed By: #### 2 21624 #### [address] [address] Potassium [Moles/Vol] 4.5 mmol/L Normal 3.5 - 5.1 [facility] Comment on above: Performed By: #### 2 03174 #### [address] [address] Protein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 phenazopyridine 200 mg tablet 200 mg PO TID PRN (Reason: pain) Qty: 30 3RF Referrals / Follow Up: Julee Joyce NP, NP-C [Primary Care Provider] - Disposition Disposition (needs filled in before D/C Order can be placed): Home, Self Care 07/13/25 0837<Electronically signed by Paige Johansen MD>Paige Johansen MD CC: GEOVANNA Joyce ~ Signed [facility] Work Phone: 1(970) 834-456209-04-2025 Consult note [facility] Medical Records Department [address] [place] [id number] Anesthesia Postop Eval I 07/13/2550 MR#: [id number] Acct: [id number] Name: BRAXTON MARTINEZ Adal Rep #:[id number] : 1960 64 From: Gisel Lyons RNA PCP: GEOVANNA Kolb Status:REG VAC Y Race: C Location: [place] [address] Anesthesia: Postop Eval I Current Vital Signs Temperature: 97 F Pulse Rate: 71 Blood Pressure: 112/53 Respiratory Rate: 16 Pulse Ox: 98 Oxygen Delivery Method: Room Air Assessment Airway patent: Yes Spontaneous unlabored respirations: Yes Mental status: Awake and Calm nausea: No Vomiting: No Anesthesia Complication: No Fluid Hydration Crystalloid volume administer (ml): 600 Total IV fluid infused: 600 Progress Note Anesthesia document: Postop Eval 1 completed: Yes 07/13/25 0951 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> Date _ Gisle Wilson CRNA Cosigner Signature: Date CC: ~ Signed [facility]09-04-2025 History and physical note Author Paige Johansen [facility] Note Date/Time July 13, 2025 9:17am [facility] System Medical Records Department [address] [place] [address] H&P Exam - Surgical 07/13/25 0750 MR#: [id number] Acct: [id number] Name: MICHELLEJAMESJaun Galeas Rep #:[id number] : 1960 64 From: Paige Kuhn PCP: GEOVANNA Kolb Status:[facility] Location: [place] [address] HPI - General General Date of Admission: 07/13/25 Date of Service: 07/13/25 Chief Complaint: Renal stones HPI Narrative History & Physical Exam 06/22/25 0905 MR#: [id number] Acct: [id number] Name: BRAXTON MARTINEZ Rep #: [id number] : 1960 64 From: Paige Johansen MD PCP: GEOVANNA Kolb Status: [facility] Location: [facility] History and Physical Date of Admission: 06/15/25 Intake Vital Signs 03/02/2508:52 06/09/2511:27 Height 5 ft 3 in 5 ft 3 in Weight: 130 lb BMI 23.0 BP 123/90 H Pulse 77 Intake Visit Reasons: PRE OP URINE C&S SIGN CONSENT Chief Complaint: preoperative with urine and consent Director Of Medical Education Required: No Accompanied by: Self Is patient in pain?: No Allergies codeine Allergy (Verified 06/09/25 11:25)Itching Medications ?Medication ?Instructions ?Recorded ?Confirmed ?Type alendronate 70 mg tablet 70 mg PO QWEEK 02/27/25 06/09/25 History aspirin 81 mg tablet,delayed 81 mg PO QHS 02/27/25 06/09/25 History release (Adult Low Dose Aspirin) atorvastatin 10 mg tablet 10 mg PO QHS 02/27/25 06/09/25 History fluticasone 100 mcg-salmeterol 50 1 inh inhalation BID PRN PRN ASTHMA 02/0806/09/25 History mcg/dose blistr powdr for inhalation meloxicam 7.5 mg tablet 7.5 mg PO DAILY PRN ARTHRITIS 02/27/25 0 06/09/25 History omeprazole 20 mg capsule,delayed 20 mg PO DAILY PRN PRN GERD 02/27/2512/03 History release ascorbic acid (vitamin C) 1,000 mg 1,000 mg PO DAILY 06/05/25 06/09/25 Hist ory tablet,extended release (C Complex) atorvastatin 10 mg tablet (Lipitor) 10 mg PO DAILY 06/05/25 06/09/25 History biotin 10,000 mcg chewable tablet 10,000 mcg PO .qd 06/05/25 06/09/25 Hist ory (Hair, Skin and Nails (biotin)) bupropion HCl 150 mg 24 hr tablet, 150 mg PO .qd 06/05/25 06/09/25 History extended release zfccjcj-rewcqfzrc-mwim tablet 1 tab PO .qd 06/05/25 06/09/25 History cholecalciferol (vitamin D3) 100 5,000 unit PO DAILY 06/05/25 06/09/25 Hi story mcg (4,000 unit) capsule cranberry 500 mg capsule 1,000 mg PO DAILY 06/05/25 06/09/25 Hist ory dicyclomine 10 mg capsule 10 mg PO Q8 PRN cramps 06/05/25 06/09/25 History multivitamin (Daily Value tablet) 1 tab PO DAILY 06/05/25 06/09/25 History omega-3 fatty acids 1,000 mg PO DAILY 06/05/25 06/09/25 Hist ory psyllium husk 0.4 gram capsule 0.4 g PO DAILY 06/05/25 06/09/25 History (Metamucil) tramadol 50 mg tablet 50 mg PO Q8 PRN arthritis 06/05/2506/09 History potassium citrate-citric acid 10 ml PO BIDWMEAL #473 mL 06/09/2506/09 Rx 1,100 mg-334 mg/5 mL oral solution Post menopausal: Yes Patient : No Have you fallen in the past year?: No PFSH Medical History H/O nephrolithotomy with removal of calculi H/O bone density study H/O mammogram Diverticular disease UTI (urinary tract infection) GERD (gastroesophageal reflux disease) Hyperlipidemia COPD (chronic obstructive pulmonary disease) IBS (irritable bowel syndrome) Arthritis Myalgia Osteoporosis Hydronephrosis Obstructed, uropathy Chronic kidney disease, stage 3b Bilateral renal cysts Intermittent palpitations Dysphagia Stroke Ureteral calculus Loss of hearing Wears contact lenses Wears dentures Post-menopausal Depression Anxiety History of steroid therapy Rheumatoid arthritis Bladder disease Easy bruising High cholesterol Migraine headache Degenerative disc disease at L5-S1 level DDD (degenerative disc disease), thoracic DDD (degenerative disc disease), cervical Injury of head and neck TIA (transient ischemic attack) Syncope History of diverticulitis History of IBS Gastric reflux Asthma Leg cramps Smoker Surgical History (Updated 06/05/25 @ 14:34 by Dyana Campbell) History of esophagogastroduodenoscopy (EGD) Hx of colonoscopy History of cystoscopy Hx of tubal ligation Family History (Updated 06/05/25 @ 14:36 by Dyana Campbell) Sister Hypertension CancerGrandfather Heart diseaseGrandmother Diabetes CancerUnknown CancerFather FH: kidney cancer Social History (Updated 06/05/25 @ 14:37 by Dyana Campbell) Smoking Status: Current every day smoker tobacco type: cigarettes Smokeless tobacco user: other Electronic Cigarette Use: with nicotine quit status: considering quitting alcohol intake: never substance use type: other details: CBD GUMMIES what type of physical activity do you participate in: other frequency: 1-2 times per week duration: other do you feel safe at home: Yes HPI HPI Chief Complaint: preoperative with urine and consent Details: BRAXTON MARTINEZ, is a 64 F. The patient is here for preoperative history and physical prior to right extracorporal shockwave lithotripsy. She will be havingthis procedure performed on the left side before the end of the month as well. There are no new symptoms since the last visit. She has been having intermittentflank discomfort. No signs of infection in urine. She is having trouble with the potassium citrate tabs and would like to try the liquid. She even tried cutting it in half, this did not work well for her secondary to inflammation from her allergies. The procedure, recovery and expectations were explained. The risks, benefits andalternatives were discussed, including but not limited to, the risks of anesthesia, bleeding, infection, injury, pain and the need for further intervention. We have discussed the risk of exposure to and/or potential harm posed by the COVID-19 virus with having a surgery/procedure at this time. A joint decision was made at this time to proceed with the scheduled surgery/procedure as indicated on the consent form. ROS Const Constitutional: No chills, fatigue, fever(s), headache(s), night sweats, weakness, weight change, abnormal sleep pattern or change in appetite Eyes Eyes: No change in vision ENT ENT: No headache(s) or dry mouth Resp Respiratory: No cough, chest congestion, shortness of breath or wheezing Cardio Cardiology: Positive for other (No chest pain.); No shortness of breath, irregular heart rhythm or lightheadedness Gastro GI: Positive for other (No nausea.); No abdominal pain, change in bowel habits, constipation, diarrhea or vomiting Musc Musculoskeletal: Positive for other (Intermittent bilateral mild flank discomfort not requiring intervention); No abnormal gait Skin Skin: No yellowing of the eye, lesions, itchy eyes, rash or skin ulcer Neuro Neurology: No abnormal gait, confusion, dizziness, weakness, headache(s) or memory loss Psych Psychiatric: No abnormal sleep pattern, No change in appetite, No confusion and No memory loss Endo Endocrine: No fatigue, increased thirst/drinking or weight change Aller/Imm Allergy/Immunologic: No itchy eyes or wheezing Jorge/Lymp Hematologic/Lymphatic: No easy bleeding, easy bruising or enlarged lymph nodes Exam Const General: cooperative, healthy appearing, comfortable and no acute distress [facility] Head: normocephalic and atraumatic Ears: hearing grossly normal bilaterally and external ears normal Nose: external nose normal Eyes General: appearance normal, both eyes and all related structures Neck Neck: normal visual inspection and trachea midline Chest Chest palpation & inspection: normal inspection of the chest Resp Effort & Inspection: normal respiratory effort, able to speak in complete sentences and symmetric chest movement Cardio Rate: regular rate GI Inspection: normal to inspection Palpation: soft and nontender General: No CVA tenderness Skin General: no rashes or lesions noted Neuro General: patient alert, patient awake, patient oriented x3 and CN's II-XI intactbilaterally Extrem General: normal to inspection Psych Appearance: grossly normal and well kempt Mental Status: mental status grossly normal Results POC UA Auto w/o Microscopy Office Urine Color ? Last Edit by Dyana Campbell on 06/09/25 11:31 Office Urine Clarity ? Last Edit by Dyana Campbell on 06/09/25 11:31 Office Urine Glucose Negative Last Edit by Dyana Campbell on 06/09/25 11:31 Office Urine Ketones Negative Last Edit by Dyana Campbell on 06/09/25 11:31 Office Urine Bilirubin Negative Last Edit by Dyana Campbell on 06/09/25 11:3 1 Office Urine Urobilinogen Negative Last Edit by Dyana Campbell on 06/09/25 11:31 Off Ur Spec [place] 1.015 Last Edit by Dyana Campbell on 06/09/25 11:31 Office Urine pH 5 Last Edit by Dyana Campbell on 06/09/25 11:31 Office Urine Protein Negative Last Edit by Dyana Campbell on 06/09/25 11:31 Office Urine Blood Negative Last Edit by Dyana Campbell on 06/09/25 11:31 Office Urine Blood Hemolyzed ? Last Edit by Dyana Campbell on 06/09/25 11:31 Office Urine Nitrate Negative Last Edit by Dyana Campbell on 06/09/25 11:31 Off Ur Leukocytes Positive Last Edit by Dyana Campbell on 06/09/25 11:31 Off Ur WBC Microscopic ? Last Edit by Dyana Campbell on 06/09/25 11:31 Off Ur RBC Microscopic ? Last Edit by Dyana Campbell on 06/09/25 11:31 Off Ur Bacteria Microscopic ? Last Edit by Dyana Campbell on 06/09/25 11:31 Coding Level of Care Code Off vis,est,level 4 Diagnoses Kidney stones N20.0 Hypercalcemia E83.52 Stress incontinence N39.3 Assessment and Plan Assessment and Plan (1) Kidney stones: Status: Acute Plan: Urine culture today in preparation for surgery Her creatinine was slightly elevated today, and we discussed increasing her fluid intake. I plan to repeat this in approximately 4 to 6 weeks. Proceed with surgical intervention as scheduled. Change potassium citrate to liquid formulation. (2) Hypercalcemia: Status: Acute Plan: See plan for kidney stones (3) Stress incontinence: Status: Acute Plan: Continue conservative management at this time Orders: Orders POC UA Auto w/o Microscopy Today N20.0 - Calculus of kidney Medications: New potassium citrate-citric acid 1,100-334 mg/5 mL 10 mL PO BIDWMEAL 473 mL 6RF Discontinued potassium citrate ER Discontinued Reason: Order Changed 15 mEq PO BID Clinical Quality Measures Falls Risk Screening/Assistive Devices Have you fallen in the past year?: No 06/09/25 1322 <Electronically signed by Paige Johansen MD> Date Paige Johansen MD [facility] Medical History H/O nephrolithotomy with removal of calculi H/O bone density study H/O mammogram Diverticular disease UTI (urinary tract infection) GERD (gastroesophageal reflux disease) Hyperlipidemia COPD (chronic obstructive pulmonary disease) IBS (irritable bowel syndrome) Arthritis Myalgia Osteoporosis Hydronephrosis Obstructed, uropathy Chronic kidney disease, stage 3b Bilateral renal cysts Intermittent palpitations Dysphagia Stroke Ureteral calculus Loss of hearing Wears contact lenses Wears dentures Post-menopausal Depression Anxiety History of steroid therapy Rheumatoid arthritis Bladder disease Easy bruising High cholesterol Migraine headache Degenerative disc disease at L5-S1 level DDD (degenerative disc disease), thoracic DDD (degenerative disc disease), cervical Injury of head and neck TIA (transient ischemic attack) Syncope History of diverticulitis History of IBS Gastric reflux Asthma Leg cramps Smoker Home Medications ?Medication ?Instructions ?Recorded ?Last Taken ?Type alendronate 70 mg tablet 70 mg PO QWEEK 02/27/25 Unkn own History aspirin 81 mg tablet,delayed 81 mg PO QHS 02/27/25 History release (Adult Low Dose Aspirin) atorvastatin 10 mg tablet 10 mg PO QHS 02/27/25 History fluticasone 100 mcg-salmeterol 50 1 inh inhalation BID PRN PRN ASTHMA 02/27/25 Unknown History mcg/dose blistr powdr for inhalation meloxicam 7.5 mg tablet 7.5 mg PO DAILY PRN ARTHRITI S 02/27/25 Unknown History omeprazole 20 mg capsule,delayed 20 mg PO DAILY PRN NM N GERD 02/27/25 03/02/25 06:30 History release ascorbic acid (vitamin C) 1,000 mg 1,000 mg PO DAILY 0 06/05/25 07/12/25 History tablet,extended release (C Complex) biotin 10,000 mcg chewable tablet 10,000 mcg PO .qd 07/12/25 History (Hair, Skin and Nails (biotin)) bupropion HCl 150 mg 24 hr tablet, 150 mg PO .qd 06/0507/12/25 History extended release nqpdoqj-efqrxsrkn-vjgh tablet 1 tab PO .qd 06/05/25 History cholecalciferol (vitamin D3) 100 5,000 unit PO DAILY 0 06/05/25 07/12/25 History mcg (4,000 unit) capsule cranberry 500 mg capsule 1,000 mg PO DAILY 06/05/25 0 07/12/25 History dicyclomine 10 mg capsule 10 mg PO Q8 PRN cramps 06/0507/12/25 History multivitamin (Daily Value tablet) 1 tab PO DAILY 06/0507/12/25 History omega-3 fatty acids 1,000 mg PO DAILY 06/05/25 0 07/06/25 History psyllium husk 0.4 gram capsule 0.4 g PO DAILY 06/05/25 Unknown History (Metamucil) tramadol 50 mg tablet 50 mg PO Q8 PRN arthritis 07/10/25 History potassium citrate-citric acid 10 ml PO BIDWMEAL #473 m L 06/09/25 07/11/25 Rx 1,100 mg-334 mg/5 mL oral solution ondansetron 4 mg disintegrating 4 mg PO Q8H PRN nausea and 06/15/25 Unknown Rx tablet vomiting #10 tabs phenazopyridine 200 mg tablet 200 mg PO TID PRN pain # 30 tabs 06/15/25 Unknown Rx Allergy/AdvReac Type Severity Reaction Status Date / Time codeine Allergy Itching Verified 07/13/25 07:03 Family History Sister Hypertension Cancer Grandfather Heart disease Grandmother Diabetes Cancer Unknown Cancer Father FH: kidney cancer Surgical History History of extracorporeal shockwave lithotripsy (ESWL) History of esophagogastroduodenoscopy (EGD) Hx of colonoscopy History of cystoscopy Hx of tubal ligation Social History Smoking Status: Current every day smoker tobacco type: cigarettes Smokeless tobacco user: other Electronic Cigarette Use: with nicotine quit status: considering quitting alcohol intake: never substance use type: other details: CBD GUMMIES what type of physical activity do you participate in: other frequency: 1-2 times per week duration: other do you feel safe at home: Yes Vital Signs Vital Signs Vital Signs: 07/13/25 07:06 07/13/25 07:06 07/13/25 07:31 Temperature 97.8 F 97.8 F Temperature Source Temporal Pulse Rate 72 72 Respiratory Rate 16 16 Respiratory Pattern Normal Blood Pressure 127/78 H 127/78 H Blood Pressure Mean 94 Blood Pressure Source Monitor Blood Pressure Position Semi-Fowlers Blood Pressure Location Left Arm Pulse Ox 98 98 Weight Weight: 129 lb Body Mass Index (BMI) 22.8 07/13/25 0752 <Electronically signed by Paige Johansen MD> Cosigner Signature (if applicable): CC: GEOVANNA Joyce; Dr. Paige Johansen MD~ Signed ADDENDUM by Dr. Paige Johansen MD on 07/13/25 at 0916 Addendum I have examined the patient the following changes are noted: she has a right ureteral stent that will be removed after evaluation of remaining stone burden. We will be placing a left ureteral stent and treating the left renal stones. Herexam is unchanged. She does feel that the stent may have migrated on the right side. 07/13/25 0916<Electronically signed by Paige Johansen MD> Cosigner Signature (if applicable): cc: GEOVANNA Joyce; Dr. Paige Johansen MD ~* Signed [facility] Work Phone: [phone]) 950-945909-04-2025 Consult note Author Miguel Angel Wilson [facility] Note Date/Time July 13, 2025 7:31am [facility] Medical Records Department [address] [place] [address] Pre-Anesthesia Evaluation 07/13/25723 MR#: [id number] Acct: [id number] Name: BRAXTON MARTINEZ Rep #:[id number] : 1960 64 From: Miguel Angel DAVID PCP: GEOVANNA Kolb Status:REG SDC Y Race: C Location: [facility]21-1 ASA Classification* ASA Classification ASA Classification: 2 Assessment & Plan Anesthesia* Anesthesia Assessment Anesthesia Assessment: Discussed sedation and/or anesthesia options, risks, benefits, and alternatives with patient/parents/legal guardian/POA. Questions invited. The patient/parents/legal guardian/POA seems to understand and agrees to proceedwith anesthesia plan. Reviewed the physical assessment, medical history, allergy history and patient home medications list prior to surgery/procedure/anesthetic and documented any changes. Performed airway and anesthesia risk assessments. Anesthesia Type Anesthesia Type: General History Source History Obtained from:: Patient and Chart Anesthesia Focused Assessment* Temperature: 97.8 F Pulse Rate: 72 Blood Pressure: 127/78 Respiratory Rate: 16 Pulse Ox: 98 Airway Assessment Mouth opens: >3 cm Mallampati Score: II Teeth Condition: Dentures and Upper Neck Range of motion (ROM): Full ROM Labs Anesthesia Preop lab: CBC WBC 11.5 K/mm3 (4.4-11.0) H 06/09/25 09:39 5 RBC 4.27 M/mm3 (4.2-5.4) 06/09/25 09:39 06/09/25 Hgb 13.4 g/dL (12.0-15.0) 06/09/25 09:39 06/09/25 Hct 40.0 % (37-47) 06/09/25 09:39 06/09/25 Plt Count 358 K/mm3 (150-450) 06/09/25 09:39 06/09/25 CHEMISTRY Potassium 4.6 mmol/L (3.3-5.1) 06/09/25 09:39 06/09/25 Sodium 139 mmol/L (133-145) 06/09/25 09:39 06/09/25 BUN 22 mg/dL (4-19) H 06/09/25 09:39 06/09/25 Creatinine 1.25 mg/dL (0.70-1.20) H 06/09/25 09:39 Glucose 97 mg/dL (70-99) 06/09/25 09:39 06/09/25 COAG Pre-Assessment Diagnosis/Proposed Procedure Planned Operative Procedure(s): LEFT ESWL POSS CYSTO WITH LEFT STENT Anesthesia History 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 When Was Last Pacemaker Check QUESTION #4 FULL TEXT: You/Your Family Experience fever (hyperthermia) with Anesthesia Last Oral Intake Last Oral intake: Last Oral Intake NPO since 21:00 07/13/25 07:06 Meds taken in AM with sips of water? Meds patient instructed to take am of surgery PONV PONV - shop foreman: PONV - shop foreman Female Yes 06/29/25 09:04 HX of Motion Sickness Yes 06/29/25 09:04 HX of N/V After Surgery No 06/29/25 09:04 Non-Smoker No 06/29/25 09:04 Duration of Surgery greater Yes 06/29/25 09:04 than 60 minutes Number of Risk Factors 3 06/29/25 09:04 PONV Score Moderate Risk 06/29/25 09:04 Height & Weight Height & Weight: Anesthesia: Height & Weight Height 5 ft 3 in 07/13/25 07:06 Weight: 58.513 kg 07/13/25 07:06 Body Mass Index (BMI) 22.8 07/13/25 07:06 Respiratory Assessment Respiratory Assessment - shop foreman: Respiratory Tract Infection Hx - shop foreman Hx Respiratory Tract Infection No 06/29/25 09:04 STOP Sleep Apnea STOP Sleep Apnea - shop foreman: STOP Sleep Apnea - shop foreman Hx Hypertension No 06/29/25 09:04 Hx Sleep Apnea No 06/29/25 09:04 CPAP BIPAP Do you snore loudly (louder No 06/29/25 09:04 than talking or can be heard Do you often feel tired/ Yes 06/29/25 09:04 fatigued/ sleepy during daytime? Has anyone observed you stop No 06/29/25 09:04 breathing during sleep? STOP Results Negative 06/29/25 09:04 QUESTION #5 FULL TEXT : Do you snore loudly (louder than talking or can be heard through closed doors)? 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 Specify any problems Hx of Preganancy in last 3 No 06/29/25 09:04 Months Nurse Filling Out Transfusion DSCHRIBER 06/29/25 09:04 & Questions: Date: 06/29/25 06/29/25 09:04 Time: 09:05 06/29/25 09:04 Patient unable to answer at this time (ie. confused, unrespo /Reproduction History /Reproductive History - shop foreman: /Reproductive Hx- shop foreman Hx Now No 06/29/25 09:04 Gestational Age (in weeks): EDC: Hx Hx Para Hx Section SAB No 06/29/25 09:04 Active Medications Active Medications: Current Medications Generic Name Dose Route Start Last Admin Trade Name Freq PRN Reason Stop Dose Admin Cefazolin Sodium 2 gm/ Sodium 110 mls @ 200 mls/hr 07/13/25 08:15 Chloride IV 07/13/25 08:47 INTRAOP ONE Lactated Ringer's 1,000 mls @ 15 mls/hr 07/13/25 07:00 07/13/25 07:17 IV 15 mls/hr .Q48H CARINA Administration PFSH Medical History H/O nephrolithotomy with removal of calculi H/O bone density study H/O mammogram Diverticular disease UTI (urinary tract infection) GERD (gastroesophageal reflux disease) Hyperlipidemia COPD (chronic obstructive pulmonary disease) IBS (irritable bowel syndrome) Arthritis Myalgia Osteoporosis Hydronephrosis Obstructed, uropathy Chronic kidney disease, stage 3b Bilateral renal cysts Intermittent palpitations Dysphagia Stroke Ureteral calculus Loss of hearing Wears contact lenses Wears dentures Post-menopausal Depression Anxiety History of steroid therapy Rheumatoid arthritis Bladder disease Easy bruising High cholesterol Migraine headache Degenerative disc disease at L5-S1 level DDD (degenerative disc disease), thoracic DDD (degenerative disc disease), cervical Injury of head and neck TIA (transient ischemic attack) Syncope History of diverticulitis History of IBS Gastric reflux Asthma Leg cramps Smoker Home Medications ?Medication ?Instructions ?Recorded ?Last Taken ?Type alendronate 70 mg tablet 70 mg PO QWEEK 02/27/25 Unkn own History aspirin 81 mg tablet,delayed 81 mg PO QHS 02/27/25 History release (Adult Low Dose Aspirin) atorvastatin 10 mg tablet 10 mg PO QHS 02/27/25 History fluticasone 100 mcg-salmeterol 50 1 inh inhalation BID PRN PRN ASTHMA 02/27/25 Unknown History mcg/dose blistr powdr for inhalation meloxicam 7.5 mg tablet 7.5 mg PO DAILY PRN ARTHRITI S 02/27/25 Unknown History omeprazole 20 mg capsule,delayed 20 mg PO DAILY PRN NM N GERD 02/27/25 03/02/25 06:30 History release ascorbic acid (vitamin C) 1,000 mg 1,000 mg PO DAILY 0 06/05/25 07/12/25 History tablet,extended release (C Complex) biotin 10,000 mcg chewable tablet 10,000 mcg PO .qd 07/12/25 History (Hair, Skin and Nails (biotin)) bupropion HCl 150 mg 24 hr tablet, 150 mg PO .qd 06/0507/12/25 History extended release ueaofvc-fqwacbpzd-uvgu tablet 1 tab PO .qd 06/05/25 History cholecalciferol (vitamin D3) 100 5,000 unit PO DAILY 0 06/05/25 07/12/25 History mcg (4,000 unit) capsule cranberry 500 mg capsule 1,000 mg PO DAILY 06/05/25 0 07/12/25 History dicyclomine 10 mg capsule 10 mg PO Q8 PRN cramps 06/0507/12/25 History multivitamin (Daily Value tablet) 1 tab PO DAILY 06/0507/12/25 History omega-3 fatty acids 1,000 mg PO DAILY 06/05/25 0 07/06/25 History psyllium husk 0.4 gram capsule 0.4 g PO DAILY 06/05/25 Unknown History (Metamucil) tramadol 50 mg tablet 50 mg PO Q8 PRN arthritis 07/10/25 History potassium citrate-citric acid 10 ml PO BIDWMEAL #473 m L 06/09/25 07/11/25 Rx 1,100 mg-334 mg/5 mL oral solution ondansetron 4 mg disintegrating 4 mg PO Q8H PRN nausea and 06/15/25 Unknown Rx tablet vomiting #10 tabs phenazopyridine 200 mg tablet 200 mg PO TID PRN pain # 30 tabs 06/15/25 Unknown Rx Allergy/AdvReac Type Severity Reaction Status Date / Time codeine Allergy Itching Verified 07/13/25 07:03 Family History Sister Hypertension Cancer Grandfather Heart disease Grandmother Diabetes Cancer Unknown Cancer Father FH: kidney cancer Surgical History History of extracorporeal shockwave lithotripsy (ESWL) History of esophagogastroduodenoscopy (EGD) Hx of colonoscopy History of cystoscopy Hx of tubal ligation Social History Smoking Status: Current every day smoker tobacco type: cigarettes Smokeless tobacco user: other Electronic Cigarette Use: with nicotine quit status: considering quitting alcohol intake: never substance use type: other details: CBD GUMMIES what type of physical activity do you participate in: other frequency: 1-2 times per week duration: other do you feel safe at home: Yes Review of Systems (Anesthesia) ROS Narrative System reviewed and no additional complaints, except as documented. 07/13/25730 <Electronically signed by Miguel Angel Wilson CRNA> Date _ Miguel Angel Ivy Signature: Date CC: ~ Signed [facility] Work Phone: [phone] 497-498709-04-2025 History and physical note [facility] Medical Records Department [address] [place] [address] H&P Exam - Surgical 07/13/25 0750 MR#: [id number] Acct: [id number] Name: BRAXTON MARTINEZ Rep #:[id number] : 1960 64 From: Paige Kuhn PCP: GEOVANNA Kolb Status:[facility] Location: [place] [address] HPI - General General Date of Admission: 07/13/25 Date of Service: 07/13/25 Chief Complaint: Renal stones HPI Narrative History & Physical Exam 06/22/25 0905 MR#: [id number] Acct: [id number] Name: BRAXTON MARTINEZ Rep #: [id number] : 1960 64 From: Paige oJhansen MD PCP: GEOVANNA Kolb Status: [facility] Location: [facility] History and Physical Date of Admission: 06/15/25 Intake Vital Signs 03/02/2508:52 06/09/2511:27 Height 5 ft 3 in 5 ft 3 in Weight: 130 lb BMI 23.0 BP 123/90 H Pulse 77 Intake Visit Reasons: PRE OP URINE C&S SIGN CONSENT Chief Complaint: preoperative with urine and consent Director Of Medical Education Required: No Accompanied by: Self Is patient in pain?: No Allergies codeine Allergy (Verified 06/09/25 11:25)Itching Medications ?Medication ?Instructions ?Recorded ?Confirmed ?Type alendronate 70 mg tablet 70 mg PO QWEEK 02/27/25 06/09/25 History aspirin 81 mg tablet,delayed 81 mg PO QHS 02/27/25 06/09/25 History release (Adult Low Dose Aspirin) atorvastatin 10 mg tablet 10 mg PO QHS 02/27/25 06/09/25 History fluticasone 100 mcg-salmeterol 50 1 inh inhalation BID PRN PRN ASTHMA 02/0806/09/25 History mcg/dose blistr powdr for inhalation meloxicam 7.5 mg tablet 7.5 mg PO DAILY PRN ARTHRITIS 02/27/25 0 06/09/25 History omeprazole 20 mg capsule,delayed 20 mg PO DAILY PRN PRN GERD 02/27/2512/03 History release ascorbic acid (vitamin C) 1,000 mg 1,000 mg PO DAILY 06/05/25 06/09/25 Hist ory tablet,extended release (C Complex) atorvastatin 10 mg tablet (Lipitor) 10 mg PO DAILY 06/05/25 06/09/25 History biotin 10,000 mcg chewable tablet 10,000 mcg PO .qd 06/05/25 06/09/25 Hist ory (Hair, Skin and Nails (biotin)) bupropion HCl 150 mg 24 hr tablet, 150 mg PO .qd 06/05/25 06/09/25 History extended release sizjdrk-akonasyle-tuqf tablet 1 tab PO .qd 06/05/25 06/09/25 History cholecalciferol (vitamin D3) 100 5,000 unit PO DAILY 06/05/25 06/09/25 Hi story mcg (4,000 unit) capsule cranberry 500 mg capsule 1,000 mg PO DAILY 06/05/25 06/09/25 Hist ory dicyclomine 10 mg capsule 10 mg PO Q8 PRN cramps 06/05/25 06/09/25 History multivitamin (Daily Value tablet) 1 tab PO DAILY 06/05/25 06/09/25 History omega-3 fatty acids 1,000 mg PO DAILY 06/05/25 06/09/25 Hist ory psyllium husk 0.4 gram capsule 0.4 g PO DAILY 06/05/25 06/09/25 History (Metamucil) tramadol 50 mg tablet 50 mg PO Q8 PRN arthritis 06/05/2506/09 History potassium citrate-citric acid 10 ml PO BIDWMEAL #473 mL 06/09/2506/09 Rx 1,100 mg-334 mg/5 mL oral solution Post menopausal: Yes Patient : No Have you fallen in the past year?: No PFSH Medical History H/O nephrolithotomy with removal of calculi H/O bone density study H/O mammogram Diverticular disease UTI (urinary tract infection) GERD (gastroesophageal reflux disease) Hyperlipidemia COPD (chronic obstructive pulmonary disease) IBS (irritable bowel syndrome) Arthritis Myalgia Osteoporosis Hydronephrosis Obstructed, uropathy Chronic kidney disease, stage 3b Bilateral renal cysts Intermittent palpitations Dysphagia Stroke Ureteral calculus Loss of hearing Wears contact lenses Wears dentures Post-menopausal Depression Anxiety History of steroid therapy Rheumatoid arthritis Bladder disease Easy bruising High cholesterol Migraine headache Degenerative disc disease at L5-S1 level DDD (degenerative disc disease), thoracic DDD (degenerative disc disease), cervical Injury of head and neck TIA (transient ischemic attack) Syncope History of diverticulitis History of IBS Gastric reflux Asthma Leg cramps Smoker Surgical History (Updated 06/05/25 @ 14:34 by Dyana Campbell) History of esophagogastroduodenoscopy (EGD) Hx of colonoscopy History of cystoscopy Hx of tubal ligation Family History (Updated 06/05/25 @ 14:36 by Dyana Campbell) Sister Hypertension CancerGrandfather Heart diseaseGrandmother Diabetes CancerUnknown CancerFather FH: kidney cancer Social History (Updated 06/05/25 @ 14:37 by Dyana Campbell) Smoking Status: Current every day smoker tobacco type: cigarettes Smokeless tobacco user: other Electronic Cigarette Use: with nicotine quit status: considering quitting alcohol intake: never substance use type: other details: CBD GUMMIES what type of physical activity do you participate in: other frequency: 1-2 times per week duration: other do you feel safe at home: Yes HPI HPI Chief Complaint: preoperative with urine and consent Details: BRAXTON MARTINEZ, is a 64 F. The patient is here for preoperative history and physical prior to rightextracorporal shockwave lithotripsy. She will be havingthis procedure performed on the left side before the end of the month as well. There are no new symptoms since the last visit. She has been having intermittentflank discomfort. No signs of infection in urine. She is having trouble with the potassium citrate tabs and would like to try the liquid. She even tried cutting it in half, this did not work well for her secondary to inflammation from her allergies. The procedure, recovery and expectations were explained. The risks, benefits andalternatives were discussed, including but not limited to, the risks of anesthesia, bleeding, infection, injury, pain and the need for further intervention. We have discussed the risk of exposure to and/or potential harm posed by the COVID-19 virus with having a surgery/procedure at this time. A joint decision was made at this time to proceed with the scheduled surgery/procedure as indicated on the consent form. ROS Const Constitutional: No chills, fatigue, fever(s), headache(s), night sweats, weakness, weight change, abnormal sleep pattern or change in appetite Eyes Eyes: No change in vision ENT ENT: No headache(s) or dry mouth Resp Respiratory: No cough, chest congestion, shortness of breath or wheezing Cardio Cardiology: Positive for other (No chest pain.); No shortness of breath, irregular heart rhythm or lightheadedness Gastro GI: Positive for other (No nausea.); No abdominal pain, change in bowel habits, constipation, diarrhea or vomiting Musc Musculoskeletal: Positive for other (Intermittent bilateral mild flank discomfort not requiring intervention); No abnormal gait Skin Skin: No yellowing of the eye, lesions, itchy eyes, rash or skin ulcer Neuro Neurology: No abnormal gait, confusion, dizziness, weakness, headache(s) or memory loss Psych Psychiatric: No abnormal sleep pattern, No change in appetite, No confusion and No memory loss Endo Endocrine: No fatigue, increased thirst/drinking or weight change Aller/Imm Allergy/Immunologic: No itchy eyes or wheezing Jorge/Lymp Hematologic/Lymphatic: No easy bleeding, easy bruising or enlarged lymph nodes Exam Const General: cooperative, healthy appearing, comfortable and no acute distress [facility] Head: normocephalic and atraumatic Ears: hearing grossly normal bilaterally and external ears normal Nose: external nose normal Eyes General: appearance normal, both eyes and all related structures Neck Neck: normal visual inspection and trachea midline Chest Chest palpation & inspection: normal inspection of the chest Resp Effort & Inspection: normal respiratory effort, able to speak in complete sentences and symmetric chest movement Cardio Rate: regular rate GI Inspection: normal to inspection Palpation: soft and nontender General: No CVA tenderness Skin General: no rashes or lesions noted Neuro General: patient alert, patient awake, patient oriented x3 and CN's II-XI intactbilaterally Extrem General: normal to inspection Psych Appearance: grossly normal and well kempt Mental Status: mental status grossly normal Results POC UA Auto w/o Microscopy Office Urine Color ? Last Edit by Dyana Campbell on 06/09/25 11:31 Office Urine Clarity ? Last Edit by Dyana Campbell on 06/09/25 11:31 Office Urine Glucose Negative Last Edit by Dyana Campbell on 06/09/25 11:31 Office Urine Ketones Negative Last Edit by Dyana Campbell on 06/09/25 11:31 Office Urine Bilirubin Negative Last Edit by Dyana Campbell on 06/09/25 11:3 1 Office Urine Urobilinogen Negative Last Edit by Dyana Campbell on 06/09/25 11:31 Off Ur Spec [place] 1.015 Last Edit by Dyana Campbell on 06/09/25 11:31 Office Urine pH 5 Last Edit by Dyana Campbell on 06/09/25 11:31 Office Urine Protein Negative Last Edit by Dyana Campbell on 06/09/25 11:31 Office Urine Blood Negative Last Edit by Dyana Campbell on 06/09/25 11:31 Office Urine Blood Hemolyzed ? Last Edit by Dyana Campbell on 06/09/25 11:31 Office Urine Nitrate Negative Last Edit by Dyana Campbell on 06/09/25 11:31 Off Ur Leukocytes Positive Last Edit by Dyana Campbell on 06/09/25 11:31 Off Ur WBC Microscopic ? Last Edit by Dyana Campbell on 06/09/25 11:31 Off Ur RBC Microscopic ? Last Edit by Dyana Campbell on 06/09/25 11:31 Off Ur Bacteria Microscopic ? Last Edit by Dyana Campbell on 06/09/25 11:31 Coding Level of Care Code Off vis,est,level 4 Diagnoses Kidney stones N20.0 Hypercalcemia E83.52 Stress incontinence N39.3 Assessment and Plan Assessment and Plan (1) Kidney stones: Status: Acute Plan: Urine culture today in preparation for surgery Her creatinine was slightly elevated today, and we discussed increasing her fluid intake. I plan to repeat this in approximately 4 to 6 weeks. Proceed with surgical intervention as scheduled. Change potassium citrate to liquid formulation. (2) Hypercalcemia: Status: Acute Plan: See plan for kidney stones (3) Stress incontinence: Status: Acute Plan: Continue conservative management at this time Orders: Orders POC UA Auto w/o Microscopy Today N20.0 - Calculus of kidney Medications: New potassium citrate-citric acid 1,100-334 mg/5 mL 10 mL PO BIDWMEAL 473 mL 6RF Discontinued potassium citrate ER Discontinued Reason: Order Changed 15 mEq PO BID Clinical Quality Measures Falls Risk Screening/Assistive Devices Have you fallen in the past year?: No 06/09/25 1322 Date Paige Johansen MD [facility] Medical History H/O nephrolithotomy with removal of calculi H/O bone density study H/O mammogram Diverticular disease UTI (urinary tract infection) GERD (gastroesophageal reflux disease) Hyperlipidemia COPD (chronic obstructive pulmonary disease) IBS (irritable bowel syndrome) Arthritis Myalgia Osteoporosis Hydronephrosis Obstructed, uropathy Chronic kidney disease, stage 3b Bilateral renal cysts Intermittent palpitations Dysphagia Stroke Ureteral calculus Loss of hearing Wears contact lenses Wears dentures Post-menopausal Depression Anxiety History of steroid therapy Rheumatoid arthritis Bladder disease Easy bruising High cholesterol Migraine headache Degenerative disc disease at L5-S1 level DDD (degenerative disc disease), thoracic DDD (degenerative disc disease), cervical Injury of head and neck TIA (transient ischemic attack) Syncope History of diverticulitis History of IBS Gastric reflux Asthma Leg cramps Smoker Home Medications ?Medication ?Instructions ?Recorded ?Last Taken ?Type alendronate 70 mg tablet 70 mg PO QWEEK 02/27/25 Unkn own History aspirin 81 mg tablet,delayed 81 mg PO QHS 02/27/25 History release (Adult Low Dose Aspirin) atorvastatin 10 mg tablet 10 mg PO QHS 02/27/25 History fluticasone 100 mcg-salmeterol 50 1 inh inhalation BID PRN PRN ASTHMA 02/27/25 Unknown History mcg/dose blistr powdr for inhalation meloxicam 7.5 mg tablet 7.5 mg PO DAILY PRN ARTHRITI S 02/27/25 Unknown History omeprazole 20 mg capsule,delayed 20 mg PO DAILY PRN NM N GERD 02/27/25 03/02/25 06:30 History release ascorbic acid (vitamin C) 1,000 mg 1,000 mg PO DAILY 0 06/05/25 07/12/25 History tablet,extended release (C Complex) biotin 10,000 mcg chewable tablet 10,000 mcg PO .qd 07/12/25 History (Hair, Skin and Nails (biotin)) bupropion HCl 150 mg 24 hr tablet, 150 mg PO .qd 06/0507/12/25 History extended release dmltwsb-xyrczlrzf-siup tablet 1 tab PO .qd 06/05/25 History cholecalciferol (vitamin D3) 100 5,000 unit PO DAILY 0 06/05/25 07/12/25 History mcg (4,000 unit) capsule cranberry 500 mg capsule 1,000 mg PO DAILY 06/05/25 0 07/12/25 History dicyclomine 10 mg capsule 10 mg PO Q8 PRN cramps 06/0507/12/25 History multivitamin (Daily Value tablet) 1 tab PO DAILY 06/0507/12/25 History omega-3 fatty acids 1,000 mg PO DAILY 06/05/25 0 07/06/25 History psyllium husk 0.4 gram capsule 0.4 g PO DAILY 06/05/25 Unknown History (Metamucil) tramadol 50 mg tablet 50 mg PO Q8 PRN arthritis 07/10/25 History potassium citrate-citric acid 10 ml PO BIDWMEAL #473 m L 06/09/25 07/11/25 Rx 1,100 mg-334 mg/5 mL oral solution ondansetron 4 mg disintegrating 4 mg PO Q8H PRN nausea and 06/15/25 Unknown Rx tablet vomiting #10 tabs phenazopyridine 200 mg tablet 200 mg PO TID PRN pain # 30 tabs 06/15/25 Unknown Rx Allergy/AdvReac Type Severity Reaction Status Date / Time codeine Allergy Itching Verified 07/13/25 07:03 Family History Sister Hypertension Cancer Grandfather Heart disease Grandmother Diabetes Cancer Unknown Cancer Father FH: kidney cancer Surgical History History of extracorporeal shockwave lithotripsy (ESWL) History of esophagogastroduodenoscopy (EGD) Hx of colonoscopy History of cystoscopy Hx of tubal ligation Social History Smoking Status: Current every day smoker tobacco type: cigarettes Smokeless tobacco user: other Electronic Cigarette Use: with nicotine quit status: considering quitting alcohol intake: never substance use type: other details: CBD GUMMIES what type of physical activity do you participate in: other frequency: 1-2 times per week duration: other do you feel safe at home: Yes Vital Signs Vital Signs Vital Signs: 07/13/25 07:06 07/13/25 07:06 07/13/25 07:31 Temperature 97.8 F 97.8 F Temperature Source Temporal Pulse Rate 72 72 Respiratory Rate 16 16 Respiratory Pattern Normal Blood Pressure 127/78 H 127/78 H Blood Pressure Mean 94 Blood Pressure Source Monitor Blood Pressure Position Semi-Fowlers Blood Pressure Location Left Arm Pulse Ox 98 98 Weight Weight: 129 lb Body Mass Index (BMI) 22.8 07/13/25 0752 Cosigner Signature (if applicable): CC: GEOVANNA Joyce; Dr. Paige Johansen MD~ Signed ADDENDUM by Dr. Paige Johansen MD on 07/13/25 at 0916 Addendum I have examined the patient the following changes are noted: she has a right ureteral stent that will be removed after evaluation of remaining stone burden. We will be placing a left ureteral stent and treating the left renal stones. Herexam is unchanged. She does feel that the stent may have migrated on the right side. 07/13/25 0916 Cosigner Signature (if applicable): cc: GEOVANNA Joyce; Dr. Paige Johansen MD ~* Signed [facility]09-04-2025 Discharge summary [facility] Medical Records Department [address] [place] [address] Instructions for Home/Discharge Instructions 07/13/25 08 MR#: [id number] Acct: [id number] Name: MICHELLEBRAXTON B Rep #:[id number] : 1960 64 From: Paige Kuhn PCP: GEOVANNA Kolb Status:REG [facility] Discharge Instructions Diet Discharge Diet: No restrictions Activity Discharge Activity: Return to Normal Activity Dressing / Incision Call your doctor if you observe: Fever of 101 or Higher, Inability to urinate and Inability to havea bowel movement Follow Up Care Please Follow Up With: Paige Johansen MD When: 2-3 weeks with KUB Test Results: Test results from this visit will be discussed in further detail at your follow- up appointment, if applicable. Discharge Plan Admission Attending Provider: Paige Johansen Primary Care Provider: Julee Joyce NP Instructions Print Language: Martiniquais Discharge Orders/Prescriptions Prescriptions: New oxycodone-acetaminophen 5-325 mg tablet 1 tab PO Q8H PRN (Reason: pain) 3 Days Qty: 10 0RF cephalexin 500 mg capsule 500 mg PO Q12 3 Days Qty: 6 0RF ondansetron 4 mg tablet,disintegrating 4 mg PO Q8H PRN (Reason: nausea and vomiting) Qty: 10 0RF Continued potassium citrate-citric acid 1,100-334 mg/5 mL solution 10 ml PO BIDWMEAL Qty: 473 6RF aspirin [Adult Low Dose Aspirin] 81 mg tablet,delayed release (DR/EC) 81 mg PO QHS omeprazole 20 mg capsule,delayed release(DR/EC) 20 mg PO DAILY PRN PRN (Reason: GERD) fluticasone propion-salmeterol 100-50 mcg/dose blister with device 1 inh inhalation BID PRN PRN (Reason: ASTHMA) atorvastatin 10 mg tablet 10 mg PO QHS alendronate 70 mg tablet 70 mg PO QWEEK meloxicam 7.5 mg tablet 7.5 mg PO DAILY PRN (Reason: ARTHRITIS) bupropion HCl 150 mg tablet extended release 24 hr 150 mg PO .qd dicyclomine 10 mg capsule 10 mg PO Q8 PRN (Reason: cramps) tramadol 50 mg tablet 50 mg PO Q8 PRN (Reason: arthritis) C Complex 1,000 mg tablet extended release 1,000 mg PO DAILY cholecalciferol (vitamin D3) 100 mcg (4,000 unit) capsule 5,000 unit PO DAILY pdouehv-juthjwmwh-apgx Tablet 1 tab PO .qd omega-3 fatty acids Capsule 1,000 mg PO DAILY Hair, Skin and Nails (biotin) 10,000 mcg tablet,chewable 10,000 mcg PO .qd cranberry 500 mg capsule 1,000 mg PO DAILY Rx Instructions: administer with a meal psyllium husk [Metamucil] 0.4 gram capsule 0.4 g PO DAILY multivitamin [Daily Value] Tablet 1 tab PO DAILY ondansetron 4 mg tablet,disintegrating 4 mg PO Q8H PRN (Reason: nausea and vomiting) Qty: 10 0RF phenazopyridine 200 mg tablet 200 mg PO TID PRN (Reason: pain) Qty: 30 3RF Referrals / Follow Up: Julee Joyce NP, BRANCH DIRECTOR-C [Primary Care Provider] - Disposition Disposition (needs filled in before D/C Order can be placed): Home, Self Care 07/13/25 0837Paige Johansen MD CC: SANTOS-C Julee Joyce ~ Signed [facility]09-04-2025 Consult note [facility] Medical Records Department [address] [place] [address] Pre-Anesthesia Evaluation 07/13/25 0724 MR#: [id number] Acct: [id number] Name: BRAXTON MARTINEZ Rep #:[id number] : 1960 64 From: Miguel Angel DAVID PCP: GEOVANNA Kolb Status:REG [facility] Y Race: C Location: [place] [address] ASA Classification* ASA Classification ASA Classification: 2 Assessment & Plan Anesthesia* Anesthesia Assessment Anesthesia Assessment: Discussed sedation and/or anesthesia options, risks, benefits, and alternatives with patient/parents/legal guardian/POA. Questions invited. The patient/parents/legal guardian/POA seems to understand and agrees to proceedwith anesthesia plan. Reviewed the physical assessment, medical history, allergy history and patient home medications list prior to surgery/procedure/anesthetic and documented any changes. Performed airway and anesthesia risk assessments. Anesthesia Type Anesthesia Type: General History Source History Obtained from:: Patient and Chart Anesthesia Focused Assessment* Temperature: 97.8 F Pulse Rate: 72 Blood Pressure: 127/78 Respiratory Rate: 16 Pulse Ox: 98 Airway Assessment Mouth opens: >3 cm Mallampati Score: II Teeth Condition: Dentures and Upper Neck Range of motion (ROM): Full ROM Labs Anesthesia Preop lab: CBC WBC 11.5 K/mm3 (4.4-11.0) H 06/09/25 09:39 5 RBC 4.27 M/mm3 (4.2-5.4) 06/09/25 09:39 06/09/25 Hgb 13.4 g/dL (12.0-15.0) 06/09/25 09:39 06/09/25 Hct 40.0 % (37-47) 06/09/25 09:39 06/09/25 Plt Count 358 K/mm3 (150-450) 06/09/25 09:39 06/09/25 CHEMISTRY Potassium 4.6 mmol/L (3.3-5.1) 06/09/25 09:39 06/09/25 Sodium 139 mmol/L (133-145) 06/09/25 09:39 06/09/25 BUN 22 mg/dL (4-19) H 06/09/25 09:39 06/09/25 Creatinine 1.25 mg/dL (0.70-1.20) H 06/09/25 09:39 Glucose 97 mg/dL (70-99) 06/09/25 09:39 06/09/25 COAG Pre-Assessment Diagnosis/Proposed Procedure Planned Operative Procedure(s): LEFT ESWL POSS CYSTO WITH LEFT STENT Anesthesia History 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 When Was Last Pacemaker Check QUESTION #4 FULL TEXT: You/Your Family Experience fever (hyperthermia) with Anesthesia Last Oral Intake Last Oral intake: Last Oral Intake NPO since 21:00 07/13/25 07:06 Meds taken in AM with sips of water? Meds patient instructed to take am of surgery PONV PONV - shop foreman: PONV - shop foreman Female Yes 06/29/25 09:04 HX of Motion Sickness Yes 06/29/25 09:04 HX of N/V After Surgery No 06/29/25 09:04 Non-Smoker No 06/29/25 09:04 Duration of Surgery greater Yes 06/29/25 09:04 than 60 minutes Number of Risk Factors 3 06/29/25 09:04 PONV Score Moderate Risk 06/29/25 09:04 Height & Weight Height & Weight: Anesthesia: Height & Weight Height 5 ft 3 in 07/13/25 07:06 Weight: 58.513 kg 07/13/25 07:06 Body Mass Index (BMI) 22.8 07/13/25 07:06 Respiratory Assessment Respiratory Assessment - shop foreman: Respiratory Tract Infection Hx - shop foreman Hx Respiratory Tract Infection No 06/29/25 09:04 STOP Sleep Apnea STOP Sleep Apnea - shop foreman: STOP Sleep Apnea - shop foreman Hx Hypertension No 06/29/25 09:04 Hx Sleep Apnea No 06/29/25 09:04 CPAP BIPAP Do you snore loudly (louder No 06/29/25 09:04 than talking or can be heard Do you often feel tired/ Yes 06/29/25 09:04 fatigued/ sleepy during daytime? Has anyone observed you stop No 06/29/25 09:04 breathing during sleep? STOP Results Negative 06/29/25 09:04 QUESTION #5 FULL TEXT : Do you snore loudly (louder than talking or can be heard through closeddoors)? 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 Specify any problems Hx of Preganancy in last 3 No 06/29/25 09:04 Months Nurse Filling Out Transfusion DSCHRIBER 06/29/25 09:04 & Questions: Date: 06/29/25 06/29/25 09:04 Time: 09:05 06/29/25 09:04 Patient unable to answer at this time (ie. confused, unrespo /Reproduction History /Reproductive History - shop foreman: /Reproductive Hx- shop foreman Hx Now No 06/29/25 09:04 Gestational Age (in weeks): EDC: Hx Hx Para Hx Section SAB No 06/29/25 09:04 Active Medications Active Medications: Current Medications Generic Name Dose Route Start Last Admin Trade Name Freq PRN Reason Stop Dose Admin Cefazolin Sodium 2 gm/ Sodium 110 mls @ 200 mls/hr 07/13/25 08:15 Chloride IV 07/13/25 08:47 INTRAOP ONE Lactated Ringer's 1,000 mls @ 15 mls/hr 07/13/25 07:00 07/13/25 07:17 IV 15 mls/hr .Q48H CARINA Administration PFSH Medical History H/O nephrolithotomy with removal of calculi H/O bone density study H/O mammogram Diverticular disease UTI (urinary tract infection) GERD (gastroesophageal reflux disease) Hyperlipidemia COPD (chronic obstructive pulmonary disease) IBS (irritable bowel syndrome) Arthritis Myalgia Osteoporosis Hydronephrosis Obstructed, uropathy Chronic kidney disease, stage 3b Bilateral renal cysts Intermittent palpitations Dysphagia Stroke Ureteral calculus Loss of hearing Wears contact lenses Wears dentures Post-menopausal Depression Anxiety History of steroid therapy Rheumatoid arthritis Bladder disease Easy bruising High cholesterol Migraine headache Degenerative disc disease at L5-S1 level DDD (degenerative disc disease), thoracic DDD (degenerative disc disease), cervical Injury of head and neck TIA (transient ischemic attack) Syncope History of diverticulitis History of IBS Gastric reflux Asthma Leg cramps Smoker Home Medications ?Medication ?Instructions ?Recorded ?Last Taken ?Type alendronate 70 mg tablet 70 mg PO QWEEK 02/27/25 Unkn own History aspirin 81 mg tablet,delayed 81 mg PO QHS 02/27/25 History release (Adult Low Dose Aspirin) atorvastatin 10 mg tablet 10 mg PO QHS 02/27/25 History fluticasone 100 mcg-salmeterol 50 1 inh inhalation BID PRN PRN ASTHMA 02/27/25 Unknown History mcg/dose blistr powdr for inhalation meloxicam 7.5 mg tablet 7.5 mg PO DAILY PRN ARTHRITI S 02/27/25 Unknown History omeprazole 20 mg capsule,delayed 20 mg PO DAILY PRN NM N GERD 02/27/25 03/02/25 06:30 History release ascorbic acid (vitamin C) 1,000 mg 1,000 mg PO DAILY 0 06/05/25 07/12/25 History tablet,extended release (C Complex) biotin 10,000 mcg chewable tablet 10,000 mcg PO .qd 07/12/25 History (Hair, Skin and Nails (biotin)) bupropion HCl 150 mg 24 hr tablet, 150 mg PO .qd 06/0507/12/25 History extended release vaegbkp-jusjtqjno-yxmx tablet 1 tab PO .qd 06/05/25 History cholecalciferol (vitamin D3) 100 5,000 unit PO DAILY 0 06/05/25 07/12/25 History mcg (4,000 unit) capsule cranberry 500 mg capsule 1,000 mg PO DAILY 06/05/25 0 07/12/25 History dicyclomine 10 mg capsule 10 mg PO Q8 PRN cramps 06/0507/12/25 History multivitamin (Daily Value tablet) 1 tab PO DAILY 06/0507/12/25 History omega-3 fatty acids 1,000 mg PO DAILY 06/05/25 0 07/06/25 History psyllium husk 0.4 gram capsule 0.4 g PO DAILY 06/05/25 Unknown History (Metamucil) tramadol 50 mg tablet 50 mg PO Q8 PRN arthritis 07/10/25 History potassium citrate-citric acid 10 ml PO BIDWMEAL #473 m L 06/09/25 07/11/25 Rx 1,100 mg-334 mg/5 mL oral solution ondansetron 4 mg disintegrating 4 mg PO Q8H PRN nausea and 06/15/25 Unknown Rx tablet vomiting #10 tabs phenazopyridine 200 mg tablet 200 mg PO TID PRN pain # 30 tabs 06/15/25 Unknown Rx Allergy/AdvReac Type Severity Reaction Status Date / Time codeine Allergy Itching Verified 07/13/25 07:03 Family History Sister Hypertension Cancer Grandfather Heart disease Grandmother Diabetes Cancer Unknown Cancer Father FH: kidney cancer Surgical History History of extracorporeal shockwave lithotripsy (ESWL) History of esophagogastroduodenoscopy (EGD) Hx of colonoscopy History of cystoscopy Hx of tubal ligation Social History Smoking Status: Current every day smoker tobacco type: cigarettes Smokeless tobacco user: other Electronic Cigarette Use: with nicotine quit status: considering quitting alcohol intake: never substance use type: other details: CBD GUMMIES what type of physical activity do you participate in: other frequency: 1-2 times per week duration: other do you feel safe at home: Yes Review of Systems (Anesthesia) ROS Narrative System reviewed and no additional complaints, except as documented. 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> Date _ Miguel Angel Wilson CRNA Cosignjulio Signature: Date CC: ~ Signed [facility]08-14-2025 [facility] Medical Records Department [address] [place] [address] History Physical Exam 06/22/25 0905 MR#: [id number] Acct: [id number] Name: BRAXTON MARTINEZ Rep #: [id number] : 1960 64 From: Paige Johansen MD PCP: GEOVANNA Kolb Status:[facility] Location: [facility] History and Physical Date of Admission: 06/15/25 Intake Vital Signs 03/02/2508:52 06/09/2511:27 Height 5 ft 3 in 5 ft 3 in Weight: 130 lb BMI 23.0 BP 123/90 H Pulse 77 Intake Visit Reasons: PRE OP URINE C S SIGN CONSENT Chief Complaint: preoperative with urine and consent Director Of Medical Education Required: No Accompanied by: Self Is patient in pain?: No Allergies codeine Allergy (Verified 06/09/25 11:25) Itching Medications ???Medication ???Instructions ???Recorded ???Confirmed ???Type alendronate 70 mg tablet 70 mg PO QWEEK 02/27/25 06/09/25 History aspirin 81 mg tablet,delayed 81 mg PO QHS 02/27/25 06/09/25 History release (Adult Low Dose Aspirin) atorvastatin 10 mg tablet 10 mg PO QHS 02/27/25 06/09/25 History fluticasone 100 mcg-salmeterol 50 1 inh inhalation BID PRN PRN ASTHMA 02/27/2506/09 History mcg/dose blistr powdr for inhalation meloxicam 7.5 mg tablet 7.5 mg PO DAILY PRN ARTHRITIS 02/27/25 06/09/25 Hi story omeprazole 20 mg capsule,delayed 20 mg PO DAILY PRN PRN GERD 02/27/25 06/09/25 Hist ory release ascorbic acid (vitamin C) 1,000 mg 1,000 mg PO DAILY 06/05/25 06/09/25 History tablet,extended release (C Complex) atorvastatin 10 mg tablet (Lipitor) 10 mg PO DAILY 06/05/25 06/09/25 History biotin 10,000 mcg chewable tablet 10,000 mcg PO .qd 06/05/25 06/09/25 History (Hair, Skin and Nails (biotin)) bupropion HCl 150 mg 24 hr tablet, 150 mg PO .qd 06/05/25 06/09/25 History extended release qvjyhht-zglworeic-wpnj tablet 1 tab PO .qd 06/05/25 06/09/25 History cholecalciferol (vitamin D3) 100 5,000 unit PO DAILY 06/05/25 06/09/25 History mcg (4,000 unit) capsule cranberry 500 mg capsule 1,000 mg PO DAILY 06/05/25 06/09/25 History dicyclomine 10 mg capsule 10 mg PO Q8 PRN cramps 06/05/25 06/09/25 History multivitamin (Daily Value tablet) 1 tab PO DAILY 06/05/25 06/09/25 History omega-3 fatty acids 1,000 mg PO DAILY 06/05/25 06/09/25 History psyllium husk 0.4 gram capsule 0.4 g PO DAILY 06/05/25 06/09/25 History (Metamucil) tramadol 50 mg tablet 50 mg PO Q8 PRN arthritis 06/05/25 06/09/25 Histor y potassium citrate-citric acid 10 ml PO BIDWMEAL #473 mL 06/09/25 06/09/25 Rx 1,100 mg-334 mg/5 mL oral solution Post menopausal: Yes Patient : No Have you fallen in the past year?: No PFSH Medical History H/O nephrolithotomy with removal of calculi H/O bone density study H/O mammogram Diverticular disease UTI (urinary tract infection) GERD (gastroesophageal reflux disease) Hyperlipidemia COPD (chronic obstructive pulmonary disease) IBS (irritable bowel syndrome) Arthritis Myalgia Osteoporosis Hydronephrosis Obstructed, uropathy Chronic kidney disease, stage 3b Bilateral renal cysts Intermittent palpitations Dysphagia Stroke Ureteral calculus Loss of hearing Wears contact lenses Wears dentures Post-menopausal Depression Anxiety History of steroid therapy Rheumatoid arthritis Bladder disease Easy bruising High cholesterol Migraine headache Degenerative disc disease at L5-S1 level DDD (degenerative disc disease), thoracic DDD (degenerative disc disease), cervical Injury of head and neck TIA (transient ischemic attack) Syncope History of diverticulitis History of IBS Gastric reflux Asthma Leg cramps Smoker Surgical History (Updated 06/05/25 @ 14:34 by Dyana Campbell) History of esophagogastroduodenoscopy (EGD) Hx of colonoscopy History of cystoscopy Hx of tubal ligation Family History (Updated 06/05/25 @ 14:36 by Dyana Campbell) Sister Hypertension CancerGrandfather Heart diseaseGrandmother Diabetes CancerUnknown CancerFather FH: kidney cancer Social History (Updated 06/05/25 @ 14:37 by Dyana Campbell) Smoking Status: Current every day smoker tobacco type: cigarettes Smokeless tobacco user: other Electronic Cigarette Use: with nicotine quit status: considering quitting alcohol intake: never substance use type: other details: CBD GUMMIES what type of physical activity do you participate in: other frequency: 1-2 times per week duration: other do you feel safe at home: Yes HPI HPI Chief Complaint: preoperative with urine and consent Details: BRAXTON MARTINEZ, is a 64 F. The patient is here for preoperative history and physical prior to right extracorporal shockwave lithotripsy. She will be having this procedure performed on the left side before the end of the month as well. There are no new symptoms sinc (more content not included)...[facility] Evaluation note* Diagnosis Onset Date Resolution Status Admit Date Hypercalcemia acute June 09, 2025 10:39am Kidney stones acute June 09, 2025 10:39am Stress incontinence acute Augus t 2024 10:39am [facility] Work Phone: 1(473) 434-105608-01-2025 Evaluation note* Diagnosis Onset Date Resolution Status Admit Date Hypercalcemia acute June 09, 2025 10:39am Kidney stones acute June 09, 2025 10:39am Stress incontinence acute Augus t 2024 10:39am Kidney stones acute July 112024 10:13am [facility] Work Phone: 1(986) 549-763605-21-2025 Radiology Diagnostic study note [facility] Imaging Services [address] [place] [address] Abdomen Single View MR#: [id number] Acct: [id number] Name: BRAXTON MARTINEZ Rep #: [id number] : 1960 F 64 From: Yovanny Christy MD PCP: GEOVANNA Kolb Status: REG CLI Study:Abdomen Single View Date of Exam: 03/28/25 Exam# [id number] Ordering Dr: Paige Johansen MD PROCEDURE: ABDOMEN SINGLE VIEW 03/28/2025 REASON FOR EXAM: KUB- KIDNEY STONE TECHNIQUE: Single view abdomen. 2 total images to include the abdomen and pelvis COMPARISON: CT abdomen and pelvis 02/14/2025 FINDINGS: Multiple calcifications are seen over the left renal shadow calcification of theupper pole of the right kidney consistent with nephrolithiasis. Bowel gas overlies portions of the mid and lower right renal shadow. No pelvic calcification concerning for stone disease. A mild S shaped thoracolumbar curvature. Visualized lung bases appear clear. No gaseous distention of bowel. RAD/Abdomen Single View IMPRESSION: Findings are suggestive of bilateral nephrolithiasis as above. No pelvic calcification concerning for stone disease. Reading Location: [id number] CC: BRANCH DIRECTOR-C Julee Joyce; Dr. Paige Johansen MD ~ Engine Head Repairer: Signed [facility]04-24-2025 Discharge summary Author Paige Johansen [facility] Note Date/Time March 02, 2025 10: 33am [facility] Medical Records Department [address] [place] [address] Instructions for Home/Discharge Instructions 03/02/25 0933 MR#: [id number] Acct: [id number] Name: BRAXTON MARTINEZ Rep #:[id number] : 1960 64 From: Paige Kuhn PCP: GEOVANNA Kolb Status:REG SDC Discharge Instructions Diet Discharge Diet: No restrictions Activity Discharge Activity: Return to Normal Activity Dressing / Incision Call your doctor if you observe: Fever of 101 or Higher, Inability to urinate and Inability to have a bowel movement Follow Up Care Please Follow Up With: Paige Johansen MD When: The office will call the patient to make follow-up arrangements Test Results: Test results from this visit will be discussed in further detail at your follow- up appointment, if applicable. Discharge Plan Admission Attending Provider: Paige Johansen Primary Care Provider: Julee Joyce NP Instructions Print Language: Martiniquais Discharge Orders/Prescriptions Prescriptions: New ondansetron 8 mg tablet,disintegrating 8 mg PO Q8H PRN (Reason: nausea and vomiting) Qty: 10 0RF oxycodone-acetaminophen 5-325 mg tablet 1 tab PO Q8H PRN (Reason: pain) 3 Days Qty: 10 0RF cephalexin 500 mg capsule 500 mg PO Q12 3 Days Qty: 6 0RF phenazopyridine 200 mg tablet 200 mg PO TID PRN (Reason: pain) Qty: 30 3RF Continued buspirone 5 MG tablet 5 mg PO BID ondansetron 4 MG tablet 4 mg PO Q8H PRN PRN (Reason: Nausea) Qty: 10 0RF aspirin [Adult Low Dose Aspirin] 81 mg tablet,delayed release (DR/EC) 81 mg PO QHS tamsulosin 0.4 MG capsule 0.4 mg PO QHS omeprazole 20 mg capsule,delayed release(DR/EC) 20 mg PO DAILY PRN PRN (Reason: GERD) fluticasone propion-salmeterol 100-50 mcg/dose blister with device 1 inh inhalation BID PRN PRN (Reason: ASTHMA) bupropion HCl 150 mg tablet sustained-release 12 hr 150 mg PO BID atorvastatin 10 mg tablet 10 mg PO QHS alendronate 70 mg tablet 70 mg PO QWEEK meloxicam 7.5 mg tablet 7.5 mg PO DAILY PRN (Reason: ARTHRITIS) Referrals / Follow Up: Julee Joyce NP, NP-C [Primary Care Provider] - Disposition Disposition (needs filled in before D/C Order can be placed): Home, Self Care 03/02/25 1033<Electronically signed by Paige Johansen MD>Paige Johansen MD CC: BRANCH DIRECTOR-C Julee Joyce ~ Signed [facility] Work Phone: 1(745) 666-651204-24-2025 Consult note Author [facility] Note Date/Time March 02, 2025 9:2 0[facility] Medical Records Department [address] [place] [address] Pre-Anesthesia Evaluation 03/02/25 0907 MR#: [id number] Acct: [id number] Name: BRAXTON MARTINEZ Rep #:[id number] : 1960 64 From: Neo Godinez MD PCP: GEOVANNA Kolb Status:REG [facility] Y Race: C Location: [place] [address] ASA Classification* ASA Classification ASA Classification: 3 Assessment & Plan Anesthesia* Anesthesia Assessment Anesthesia Assessment: Discussed sedation and/or anesthesia options, risks, benefits, and alternatives with patient/parents/legal guardian/POA. Questions invited. The patient/parents/legal guardian/POA seems to understand and agrees to proceedwith anesthesia plan. Reviewed the physical assessment, medical history, allergy history and patient home medications list prior to surgery/procedure/anesthetic and documented any changes. Performed airway and anesthesia risk assessments. Anesthesia Type Anesthesia Type: General History Source History Obtained from:: Patient and Chart Anesthesia Focused Assessment* Temperature: 97.8 F Pulse Rate: 76 Blood Pressure: 135/72 Respiratory Rate: 18 Pulse Ox: 97 Oxygen Delivery Method: Room Air Airway Assessment Mouth opens: >3 cm Mallampati Score: II Teeth Condition: Dentures (Patient has full upper dentures. They are out.) and Missing (Patient is missing her molars on the bottom. Rest are tight.) Neck Range of motion (ROM): Full ROM Focused Labs Anesthesia Preop lab: CBC WBC 14.2 K/mm3 (4.4-11.0) H 01/13/20 10:10 0 RBC 4.50 M/mm3 (4.2-5.4) 01/13/20 10:10 01/13/20 Hgb 13.9 g/dL (12.0-15.0) 01/13/20 10:10 01/13/20 Hct 42.4 % (37-47) 01/13/20 10:10 01/13/20 Plt Count 335 K/mm3 (150-450) 01/13/20 10:10 01/13/20 CHEMISTRY Potassium 4.0 mmol/L (3.5-5.1) 01/13/20 10:10 01/13/20 Sodium 139 mmol/L (136-145) 01/13/20 10:10 01/13/20 BUN 15 mg/dL (7-18) 01/13/20 10:10 01/13/20 Creatinine 1.16 mg/dL (0.55-1.02) H 01/13/20 10:10 Glucose 134 mg/dL (74-106) H 01/13/20 10:10 01/13/20 COAG Pre-Assessment Diagnosis/Proposed Procedure Planned Operative Procedure(s): CYSTO URETEROSCOPY LEFT WITH LASER LITHOTRIPSY STONE BASKET EXTRACTION STENT INSERTION Anesthesia History 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 When Was Last Pacemaker Check QUESTION #4 FULL TEXT: You/Your Family Experience fever (hyperthermia) with Anesthesia Last Oral Intake Last Oral intake: Last Oral Intake NPO since 06:30 03/02/25 08:52 Meds taken in AM with sips of Yes 03/02/25 08:52 water? Meds patient instructed to omeprazole 03/02/25 08:52 take am of surgery Any additional information?: Yes Meds taken in AM with sips of water?: Yes PONV PONV - shop foreman: PONV - shop foreman Female Yes 02/27/25 13:16 HX of Motion Sickness No 02/27/25 13:16 HX of N/V After Surgery No 02/27/25 13:16 Non-Smoker No 02/27/25 13:16 Duration of Surgery greater Yes 02/27/25 13:16 than 60 minutes Number of Risk Factors 2 02/27/25 13:16 PONV Score Moderate Risk 02/27/25 13:16 Height & Weight Height & Weight: Anesthesia: Height & Weight Height 5 ft 3 in 03/02/25 08:52 Weight: 59 kg 03/02/25 08:52 Body Mass Index (BMI) 23.0 03/02/25 08:52 Respiratory Assessment Respiratory Assessment - shop foreman: Respiratory Tract Infection Hx - shop foreman Hx Respiratory Tract Infection No 02/27/25 13:16 STOP Sleep Apnea STOP Sleep Apnea - shop foreman: STOP Sleep Apnea - shop foreman Hx Hypertension No 02/27/25 13:16 Hx Sleep Apnea No 02/27/25 13:16 CPAP BIPAP Do you snore loudly (louder No 02/27/25 13:16 than talking or can be heard Do you often feel tired/ No 02/27/25 13:16 fatigued/ sleepy during daytime? Has anyone observed you stop No 02/27/25 13:16 breathing during sleep? STOP Results Negative 02/27/25 13:16 QUESTION #5 FULL TEXT : Do you snore loudly (louder than talking or can be heard through closed doors)? 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 Specify any problems Hx of Preganancy in last 3 No 02/27/25 13:16 Months Nurse Filling Out Transfusion DSCHRIBER 02/27/25 13:16 & Questions: Date: 02/27/25 02/27/25 13:16 Time: 13:17 02/27/25 13:16 Patient unable to answer at this time (ie. confused, unrespo /Reproduction History /Reproductive History - shop foreman: /Reproductive Hx- shop foreman Hx Now No 02/27/25 13:16 Gestational Age (in weeks): EDC: Hx Hx Para Hx Section SAB No 02/27/25 13:16 Active Medications Active Medications: Current Medications Generic Name Dose Route Start Last Admin Trade Name Freq PRN Reason Stop Dose Admin Cefazolin Sodium 2 gm/ N/A 20 mls @ 400 mls/hr 03/02/25 10:55 IV 03/02/25 10:57 INTRAOP ONE Lactated Ringer's 1,000 mls @ 15 mls/hr 03/02/25 08:15 03/02/25 08:58 IV 15 mls/hr .Q48H CARINA Administration PFSH Medical History Loss of hearing Wears contact lenses Wears dentures Post-menopausal Depression Anxiety History of steroid therapy Rheumatoid arthritis Bladder disease Easy bruising High cholesterol Migraine headache Degenerative disc disease at L5-S1 level DDD (degenerative disc disease), thoracic DDD (degenerative disc disease), cervical Injury of head and neck TIA (transient ischemic attack) Syncope History of diverticulitis History of IBS Gastric reflux Asthma Leg cramps Smoker Home Medications ?Medication ?Instructions ?Recorded ?Last Taken ?Type buspirone 5 mg tablet 5 mg PO BID 01/13/20 Unknown History ondansetron 4 mg disintegrating 4 mg PO Q8H PRN PRN Na usea #10 tabs 01/13/20 Unknown Rx tablet alendronate 70 mg tablet 70 mg PO QWEEK 02/27/25 Unkn own History aspirin 81 mg tablet,delayed 81 mg PO QHS 02/27/25 History release (Adult Low Dose Aspirin) atorvastatin 10 mg tablet 10 mg PO QHS 02/27/25 Unknow n History bupropion HCl 150 mg tablet,12 hr 150 mg PO BID Unknown History sustained-release fluticasone 100 mcg-salmeterol 50 1 inh inhalation BID PRN PRN ASTHMA 02/27/25 Unknown History mcg/dose blistr powdr for inhalation meloxicam 7.5 mg tablet 7.5 mg PO DAILY PRN ARTHRITI S 02/27/25 Unknown History omeprazole 20 mg capsule,delayed 20 mg PO DAILY PRN NM N GERD 02/27/25 03/02/25 06:30 History release tamsulosin 0.4 mg capsule 0.4 mg PO QHS 02/27/25 Unkno wn History Allergy/AdvReac Type Severity Reaction Status Date / Time codeine Allergy Itching Verified 03/02/25 08:51 Surgical History History of esophagogastroduodenoscopy (EGD) Hx of colonoscopy History of cystoscopy Hx of tubal ligation Social History Smoking Status: Current every day smoker (Patient smoked today.) tobacco type: cigarettes Review of Systems (Anesthesia) ROS Narrative System reviewed and no additional complaints, except as documented. 03/02/25919 <Electronically signed by Neo skelton MD> Date _ Neo Godinez MD Cosigner Signature: Date CC: ~ Signed [facility] Work Phone: 1(555) 503-659604-24-2025 Procedure note [facility] Medical Records Department [address] [place] [address] Operative Report 03/02/2532 MR#: [id number] Acct: [id number] Name: BRAXTON MARTINEZ Rep #:[id number] : 1960 64 From: Paige Kuhn PCP: GEOVANNA Kolb Status:[facility] Location: [place] [address] Problems Associated Problem List Diagnoses (1) Ureteral calculus: Operative Report (Standard) Operative Information Date of Procedure: 03/02/25 Pre-Operative Diagnosis: Left ureteral calculus Post-Operative Diagnosis: Same Surgery/Procedure Performed: Cystoscopy, left ureteroscopy, thulium laser lithotripsy, stone basketextraction, left ureteral stent insertion lawn specialist: No Type of Anesthesia: General RN Documented Start/Stop Times: Operation Date: 03/02/25 09:35 Case Time Into Pre-Op 03/02/25 08:11 Anesthesia Start 03/02/25 09:36 Into Room 03/02/25 09:36 Out of Pre-Op 03/02/25 09:36 Procedure Start 03/02/25 09:49 Procedure End 03/02/25 10:04 Anesthesia End 03/02/25 10:11 Out of Room 03/02/25 10:11 Into Recovery 03/02/25 10:13 Procedure Start Time: 09:49 Procedure Stop Time: 10:04 Select all DRAINS/GRAFTS/IMPLANTS that apply: Drains Drain details: 4.5Fr x 24cmJJ stent Estimated Blood Loss: <5cc Specimen collected: Yes Description of specimen(s) removed: Ureteral stone fragments Description of surgery: Patient is a 64-year-old female with an obstructing left distal ureteral calculus who presents for surgical intervention. Informed consent was obtained. She was taken to the operating room and placedon the operating room table. Anesthesia monitored the head, neck, airway, IV access and vital signsthroughout the case. Once anesthesia was appropriate ministered, she was placedinto dorsolithotomy position was prepped and draped in usual sterile fashion. The cystoscope was inserted through the urethra under direct visualization into the urinary bladder. The bladder was visualized in its entirety revealing no evidence of mass, erythema, ulceration or foreign body. The left ureteral orifice wasidentified and intubated with a 0.035 Glidewire seen within the renal pelvis on fluoroscopy. The semirigid ureteroscope was then utilized to gain access to the distal ureter and the stone was almost immediately identified. Using the 200 ?m laser fiber, the stone was broken into multiple small pieces which were basket retrieved using an N-fernie basket. Once all of the fragments were retrieved from the ureter, the safety wire was utilized for placement of a 4.5 [place]aguayan by 24 cm JJ stent with good positioning in the renal pelvis as well as the urinary bladder. The bladder was then emptied and the cystoscope was removed. She was awakened and taken to the recovery room in goodcondition. There wereno complications during this procedure. Surgical Findings: left distal stone, larger than measured on CT imaging Complications Complications: No Admit VTE Documentation VTE Present on Admission: Yes VTE Mechan Device Prophylaxis: SCD's Reason prophylaxis not ordered: Treatment Not Indicated 03/02/25 1035 Cosigner Signature (if applicable): CC: GEOVANNA Joyce; Dr. Paige Johansen MD~ Signed [facility]04-24-2025 Discharge summary [facility] Medical Records Department [address] [place] [address] Instructions for Home/Discharge Instructions 03/02/25 0933 MR#: [id number] Acct: [id number] Name: BRAXTON MARTINEZ Rep #:[id number] : 1960 64 From: Paige Kuhn PCP: GEOVANNA Kolb Status:REG VAC Discharge Instructions Diet Discharge Diet: No restrictions Activity Discharge Activity: Return to Normal Activity Dressing / Incision Call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 may have pre-hypertension or hypertension based on a blood pressure reading in the Emergency Department. I recommend that the patient call the primary care provider listed on their discharge instructions or a physician of their choice as soon as possible to arrange follow-up in the next 4 weeks for further evaluation of possible pre-hypertension or hypertension. . Jeanette Yuen MD ED Physician [facility] Emergency Department (Please note that portions of this note have been completed with a voice recognition software. Efforts were made to correct any errors, but occasionally words are mis-transcribed.) Jeanette Yuen MD 02/10/192106 X-rays at [facility]. Posterior side of patient checked. No visible evidence of injury. FAST exam negative in this encounter Care Teams (unrecognized sec tion and content) Team Status: Active Member Role Status Dates Julee Joyce NP BRANCH DIRECTOR-C Primary Care Provider Active Team Status: Inactive Member Role Status Dates Julee Joyce NP, NP-C Primary Care Provider Active Start: October 27, 2024 End: October 27, 2024 Julee Joyce NP, NP-Serena Attending Provider Active S tart: October 27, 2024 End: October 27, 2024 Julee Joyce NP, NP-C Referring Provider Active S tart: October 27, 2024 End: October 27, 2024 Team Status: Inactive Member Role Status Dates Julee Joyce NP, NP-C Primary Care Provider Active Start: February 14, 2025 End: February 14, 2025 Julee Joyce NP, NP-C Attending Provider Active S tart: February 14, 2025 End: February 14, 2025 Julee Isiah BRANCH DIRECTOR, BRANCH DIRECTOR-C Referring Provider Active S tart: February 14, 2025 End: February 14, 2025 Team Status: Inactive Member Role Status Dates Julee Joyce BRANCH DIRECTOR, BRANCH DIRECTOR-C Primary Care Provider Active Start: March 02, 2025 End: March 02, 2025 Dr. Paige Johansen MD Attending Provider Active Start: March 02, 2025 End: March 02, 2025 Dr. Paige Johansen MD Referring Provider Active Start: March 02, 2025 End: March 02, 2025 Team Status: Inactive Member Role Status Dates Julee Joyce BRANCH DIRECTOR, BRANCH DIRECTOR-C Primary Care Provider Active Start: March 28, 2025 End: March 28, 2025 Dr. Paige Johansen MD Attending Provider Active Start: March 28, 2025 End: March 28, 2025 Dr. Paige Johansen MD Referring Provider Active Start: March 28, 2025 End: March 28, 2025 Team Status: Active Member Role/Relationship Status Dates Julee Joyce BRANCH DIRECTOR, BRANCH DIRECTOR-C Primary Care Provider Active Team Status: Inactive Member Role/Relationship Status Dates Julee Joyce BRANCH DIRECTOR, BRANCH DIRECTOR-C Primary Care Provider Active Start: February 14, 2025 End: February 14, 2025 Julee Joyce BRANCH DIRECTOR, BRANCH DIRECTOR-C Attending Provider Active S tart: February 14, 2025 End: February 14, 2025 Julee Joyce BRANCH DIRECTOR, BRANCH DIRECTOR-C Referring Provider Active S tart: February 14, 2025 End: February 14, 2025 Team Status: Inactive Member Role/Relationship Status Dates Julee Joyce BRANCH DIRECTOR, BRANCH DIRECTOR-C Primary Care Provider Active Start: March 02, 2025 End: March 02, 2025 Dr. Paige Johansen MD Attending Provider Active Start: March 02, 2025 End: March 02, 2025 Dr. Paige Johansen MD Referring Provider Active Start: March 02, 2025 End: March 02, 2025 Team Status: Inactive Member Role/Relationship Status Dates Julee Joyce BRANCH DIRECTOR, BRANCH DIRECTOR-C Primary Care Provider Active Start: March 28, 2025 End: March 28, 2025 Dr. Paige Johansen MD Attending Provider Active Start: March 28, 2025 End: March 28, 2025 Dr. Paige Johansen MD Referring Provider Active Start: March 28, 2025 End: March 28, 2025 Team Status: Inactive Member Role/Relationship Status Dates Julee Joyce BRANCH DIRECTOR, BRANCH DIRECTOR-C Primary Care Provider Active Start: May 09, 2025 Dr. Paige Johansen MD Attending Provider Active Start: May 09, 2025 Team Status: Inactive Member Role/Relationship Status Dates Julee Joyce BRANCH DIRECTOR, BRANCH DIRECTOR-C Primary Care Provider Active Start: June 09, 2025 End: June 09, 2025 Julee Joyce BRANCH DIRECTOR, BRANCH DIRECTOR-C Referring Provider Active S tart: June 09, 2025 End: June 09, 2025 Dr. Paige Johansen MD Attending Provider Active Start: June 09, 2025 End: June 09, 2025 Team Status: Inactive Member Role/Relationship Status Dates Julee Joyce BRANCH DIRECTOR, BRANCH DIRECTOR-C Primary Care Provider Active Start: March 02, 2025 End: March 02, 2025 Dr. Paige Johansen MD Attending Provider Active Start: March 02, 2025 End: March 02, 2025 Dr. Paige Johansen MD Referring Provider Active Start: March 02, 2025 End: March 02, 2025 Team Status: Inactive Member Role/Relationship Status Dates Julee Joyce BRANCH DIRECTOR, BRANCH DIRECTOR-C Primary Care Provider Active Start: March 28, 2025 End: March 28, 2025 Dr. Paige Johansen MD Attending Provider Active Start: March 28, 2025 End: March 28, 2025 Dr. Paige Johansen MD Referring Provider Active Start: March 28, 2025 End: March 28, 2025 Team Status: Inactive Member Role/Relationship Status Dates Julee Joyce BRANCH DIRECTOR, BRANCH DIRECTOR-C Primary Care Provider Active Start: May 09, 2025 Dr. Paige Johansen MD Attending Provider Active Start: May 09, 2025 Team Status: Active Member Role/Relationship Status Dates Julee Joyce BRANCH DIRECTOR, BRANCH DIRECTOR-C Primary Care Provider Active Start: June 09, 2025 End: June 09, 2025 Dr. Mo Fernandez MD Attending Provider Active S tart: June 09, 2025 End: June 09, 2025 Dr. Paige Johansen MD Referring Provider Active Start: June 09, 2025 End: June 09, 2025 Team Status: Inactive Member Role/Relationship Status Dates Julee Joyce BRANCH DIRECTOR, BRANCH DIRECTOR-C Primary Care Provider Active Start: June 15, 2025 End: June 15, 2025 Dr. Paige Johansen MD Attending Provider Active Start: June 15, 2025 End: June 15, 2025 Dr. Paige Johansen MD Referring Provider Active Start: June 15, 2025 End: June 15, 2025 Team Status: Active Member Role/Relationship Status Dates Julee Joyce BRANCH DIRECTOR, BRANCH DIRECTOR-C Primary Care Provider Active Start: June 15, 2025 Dr. Paige Johansen MD Attending Provider Active Start: June 15, 2025 Dr. Paige Johansen MD Referring Provider Active Start: June 15, 2025 Dr. Paige Johansen MD Other Provider Active Sta rt: June 15, 2025 Team Status: Inactive Member Role/Relationship Status Dates Julee Joyce BRANCH DIRECTOR, BRANCH DIRECTOR-C Primary Care Provider Active Start: June 22, 2025 End: June 22, 2025 Julee Joyce BRANCH DIRECTOR, BRANCH DIRECTOR-C Referring Provider Active S tart: June 22, 2025 End: June 22, 2025 Dr. Paige Johansen MD Attending Provider Active Start: June 22, 2025 End: June 22, 2025 Team Status: Inactive Member Role/Relationship Status Dates Julee Joyce BRANCH DIRECTOR, BRANCH DIRECTOR-C Primary Care Provider Active Start: March 28, 2025 End: March 28, 2025 Dr. Paige Johansen MD Attending Provider Active Start: March 28, 2025 End: March 28, 2025 Dr. Paige Johansen MD Referring Provider Active Start: March 28, 2025 End: March 28, 2025 Team Status: Inactive Member Role/Relationship Status Dates Julee Joyce BRANCH DIRECTOR, BRANCH DIRECTOR-C Primary Care Provider Active Start: May 09, 2025 Dr. Paige Johansen MD Attending Provider Active Start: May 09, 2025 Team Status: Active Member Role/Relationship Status Dates Julee Joyce BRANCH DIRECTOR, BRANCH DIRECTOR-C Primary Care Provider Active Start: June 09, 2025 End: June 09, 2025 Dr. Mo Fernandez MD Attending Provider Active S tart: June 09, 2025 End: June 09, 2025 Dr. Paige Johansen MD Referring Provider Active Start: June 09, 2025 End: June 09, 2025 Team Status: Inactive Member Role/Relationship Status Dates Julee Joyce BRANCH DIRECTOR, BRANCH DIRECTOR-C Primary Care Provider Active Start: June 09, 2025 End: June 09, 2025 Julee Joyce BRANCH DIRECTOR, BRANCH DIRECTOR-C Referring Provider Active S tart: June 09, 2025 End: June 09, 2025 Dr. Paige Johansen MD Attending Provider Active Start: June 09, 2025 End: June 09, 2025 Team Status: Inactive Member Role/Relationship Status Dates Julee Joyce BRANCH DIRECTOR, BRANCH DIRECTOR-C Primary Care Provider Active Start: June 15, 2025 End: June 15, 2025 Dr. Paige Johansen MD Attending Provider Active Start: June 15, 2025 End: June 15, 2025 Dr. Paige Johansen MD Referring Provider Active Start: June 15, 2025 End: June 15, 2025 Team Status: Active Member Role/Relationship Status Dates Julee Joyce BRANCH DIRECTOR, BRANCH DIRECTOR-C Primary Care Provider Active Start: June 15, 2025 Dr. Paige Johansen MD Attending Provider Active Start: June 15, 2025 Dr. Paige Johansen MD Referring Provider Active Start: June 15, 2025 Dr. Paige Johansen MD Other Provider Active Sta rt: June 15, 2025 Team Status: Inactive Member Role/Relationship Status Dates Julee Joyce BRANCH DIRECTOR, BRANCH DIRECTOR-C Primary Care Provider Active Start: June 22, 2025 End: June 22, 2025 Julee Joyce BRANCH DIRECTOR, BRANCH DIRECTOR-C Referring Provider Active S tart: June 22, 2025 End: June 22, 2025 Dr. Paige Johansen MD Attending Provider Active Start: June 22, 2025 End: June 22, 2025 Team Status: Active Member Role/Relationship Status Dates Julee Joyce BRANCH DIRECTOR, BRANCH DIRECTOR-C Primary Care Provider Active Start: June 22, 2025 Dr. Paige Johansen MD Attending Provider Active Start: June 22, 2025 Dr. Paige Johansen MD Referring Provider Active Start: June 22, 2025 Dr. Paige Johansen MD Other Provider Active Sta rt: June 22, 2025 Team Status: Active Member Role/Relationship Status Dates Julee Joyce BRANCH DIRECTOR, BRANCH DIRECTOR-C Primary Care Provider Active Start: July 06, 2025 Dr. Piage Johansen MD Attending Provider Active Start: July 06, 2025 Team Status: Inactive Member Role/Relationship Status Dates Julee Joyce BRANCH DIRECTOR, BRANCH DIRECTOR-C Primary Care Provider Active Start: July 13, 2025 End: July 13, 2025 Dr. Paige Johansen MD Attending Provider Active Start: July 13, 2025 End: July 13, 2025 Dr. Paige Johansen MD Referring Provider Active Start: July 13, 2025 End: July 13, 2025 Team Status: Active Member Role/Relationship Status Dates Julee Joyce BRANCH DIRECTOR, BRANCH DIRECTOR-C Primary Care Provider Active Start: July 13, 2025 Dr. Paige Johansen MD Attending Provider Active Start: July 13, 2025 Dr. Paige Johansen MD Referring Provider Active Start: July 13, 2025 Dr. Paige Johansen MD Other Provider Active Sta rt: July 13, 2025 Team Status: Active Member Role/Relationship Status Dates Julee Joyce BRANCH DIRECTOR, BRANCH DIRECTOR-C Primary care physician Active Team Status: Inactive Member Role/Relationship Status Dates Julee Joyce BRANCH DIRECTOR, BRANCH DIRECTOR-C Primary care physician Active Start: May 09, 2025 Dr. Paige Johansen MD Attending physician Active Start: May 09, 2025 Team Status: Active Member Role/Relationship Status Dates Julee Joyce BRANCH DIRECTOR, BRANCH DIRECTOR-C Primary care physician Active Start: June 09, 2025 End: June 09, 2025 Dr. Mo Fernandez MD Attending physician Active Start: June 09, 2025 End: June 09, 2025 Dr. Paige Johansen MD Referring Provider Active Start: June 09, 2025 End: June 09, 2025 Team Status: Inactive Member Role/Relationship Status Dates Julee Joyce BRANCH DIRECTOR, BRANCH DIRECTOR-C Primary care physician Active Start: June 09, 2025 End: June 09, 2025 Julee Joyce BRANCH DIRECTOR, BRANCH DIRECTOR-C Referring Provider Active S tart: June 09, 2025 End: June 09, 2025 Dr. Paige Johansen MD Attending physician Active Start: June 09, 2025 End: June 09, 2025 Team Status: Inactive Member Role/Relationship Status Dates Julee Joyce BRANCH DIRECTOR, BRANCH DIRECTOR-C Primary care physician Active Start: June 15, 2025 End: June 15, 2025 Dr. Paige Johansen MD Attending physician Active Start: June 15, 2025 End: June 15, 2025 Dr. Paige Johansen MD Referring Provider Active Start: June 15, 2025 End: June 15, 2025 Team Status: Active Member Role/Relationship Status Dates Julee Joyce BRANCH DIRECTOR, BRANCH DIRECTOR-C Primary care physician Active Start: June 15, 2025 Dr. Paige Johansen MD Attending physician Active Start: June 15, 2025 Dr. Paige Johansen MD Referring Provider Active Start: June 15, 2025 Dr. Paige Johansen MD Nurse Practitioner Active Start: June 15, 2025 Team Status: Inactive Member Role/Relationship Status Dates Julee Joyce BRANCH DIRECTOR, BRANCH DIRECTOR-C Primary care physician Active Start: June 22, 2025 End: June 22, 2025 Julee Joyce BRANCH DIRECTOR, BRANCH DIRECTOR-C Referring Provider Active S tart: June 22, 2025 End: June 22, 2025 Dr. Paige Johansen MD Attending physician Active Start: June 22, 2025 End: June 22, 2025 Team Status: Active Member Role/Relationship Status Dates Julee Joyce BRANCH DIRECTOR, BRANCH DIRECTOR-C Primary care physician Active Start: June 22, 2025 Dr. Paige Johansen MD Attending physician Active Start: June 22, 2025 Dr. Paige Johansen MD Referring Provider Active Start: June 22, 2025 Dr. Paige Johansen MD Nurse Practitioner Active Start: June 22, 2025 Team Status: Active Member Role/Relationship Status Dates Julee Joyce BRANCH DIRECTOR, BRANCH DIRECTOR-C Primary care physician Active Start: July 06, 2025 Dr. Paige Johansen MD Attending physician Active Start: July 06, 2025 Team Status: Inactive Member Role/Relationship Status Dates Julee Joyce BRANCH DIRECTOR, BRANCH DIRECTOR-C Primary care physician Active Start: July 13, 2025 End: July 13, 2025 Dr. Paige Johansen MD Attending physician Active Start: July 13, 2025 End: July 13, 2025 Dr. Paige Johansen MD Referring Provider Active Start: July 13, 2025 End: July 13, 2025 Team Status: Active Member Role/Relationship Status Dates Julee Joyce BRANCH DIRECTOR, BRANCH DIRECTOR-C Primary care physician Active Start: July 13, 2025 Dr. Paige Johansen MD Attending physician Active Start: July 13, 2025 Dr. Paige Johansen MD Referring Provider Active Start: July 13, 2025 Dr. Paige Johansen MD Nurse Practitioner Active Start: July 13, 2025 Team Status: Active Member Role/Relationship Status Dates Julee Joyce BRANCH DIRECTOR, BRANCH DIRECTOR-C Primary care physician Active Start: August 02, 2025 Dr. Paige Johansen MD Attending physician Active Start: August 02, 2025 Dr. Paige Johansen MD Referring Provider Active Start: August 02, 2025 Team Status: Inactive Member Role/Relationship Status Dates Julee Joyce NP, BRANCH DIRECTOR-C Primary care physician Active Start: August 02, 2025 End: August 02, 2025 Julee Joyec NP, BRANCH DIRECTOR-C Referring Provider Active S tart: August 02, 2025 End: August 02, 2025 Dr. Paige Johansen MD Attending physician Active Start: August 02, 2025 End: August 02, 2025 Goals (unrecognized section and content) Goals may be documented in a n alternate section FOR RECORDS PERTAINING TO PATIENTS WHO ARE OR HAVE BEEN ENROLLED IN A CHEMICAL DEPENDENCY/SUBSTANCEABUSE PROGRAM, SOME INFORMATION MAY BE OMITTED. This clinical summary was aggregated from multiple sources. Caution should be exercised in using it in the provision of clinical care. This summary normalizes information from multiple sources, and as a consequence, information in this document may materially change the coding, format and clinical context of patient data. In addition, data may be omitted in some cases. CLINICAL DECISIONS SHOULD BE BASED ON THE PRIMARY CLINICAL RECORDS. [employer] provides no warranty or guarantee of the accuracy or completeness of information in this document.
[2025-09-06 14:46] LABS: PTHIN 29 pg/mL (11-61)
== END | disposition home or self-care (01) ==
LOC: MTLAB 10:43
PROVIDERS: PCP Nurse Practitioner Family; Referring Provider Urology; Visit Provider Urology
DX: E83.52 Hypercalcemia (principal); R82.994 Hypercalciuria; R82.991 Hypocitraturia; N20.0 Calculus of kidney; N39.3 Stress incontinence (female) (male)
CPT/HCPCS: 36415; 83970